=== PATIENT | male | born 1940 | race Caucasian/White ===

== ENCOUNTER → 2018-01-16 | Outpatient (CLI) | payer OTHER, MEDICARE ==
[~2018-01-16] MED LIST: NRV/10 PO; OPTIRAY 320 IV PRN
--- NOTE | 2018-01-16 11:30 | DIAGNOSTIC IMAGING REPORT ---
CHEST 2 VIEWS ROUTINE CLINICAL HISTORY: R63.4. ABNORMAL WEIGHT LOSS COMPARISON STUDY: 08/31/2016 FINDINGS: The cardiac and mediastinal contours are normal. There is no evidence of focal pulmonary consolidation. There is no evidence of failure. No pleural effusions are visualized.[ IMPRESSION: No active disease in the chest. Electronically signed by: Chinedu Hoyt M.D. 01/16/2018 11:29 AM Dictated Date/Time: 01/16/2018 11:28 AM
--- NOTE | 2018-01-16 11:33 | DIAGNOSTIC IMAGING REPORT ---
ABD/PELVIS IV CONTRAST ONLY CT DOSE: 290.74 mGy.cm HISTORY: Weight loss. Pain. ABNORMAL WT LOSS,BENIGN PROSTATIC HYPERPLASIA TECHNIQUE: Multiaxial CT images of the abdomen and pelvis were performed following the use of intravenous contrast. A dose lowering technique was utilized adhering to the principles of ALARA. COMPARISON STUDY: None. FINDINGS: Lung bases are generally clear. Minimal dependent basilar atelectasis. Liver enhances uniformly. 5 mm cyst anterior aspect left hepatic lobe. No evidence for gallbladder distention. The kidneys enhance uniformly. The adrenal glands are unremarkable. Spleen is uniform. Nonobstructive bowel pattern. Suggestion of slight thickening of several segmental regions of the small bowel as well as colon. This is most likely technical due to the absence of oral contrast . No significant abdominal or pelvic adenopathy. Bladder is midline. No free fluid within the pelvic cul-de-sac. No acute abnormality of the bony structures. IMPRESSION: No significant abnormality identified within the abdomen or pelvis. The above report was generated using voice recognition software. It may contain grammatical, syntax or spelling errors. Electronically signed by: Drew Chaves M.D. 01/16/2018 11:32 AM Dictated Date/Time: 01/16/2018 11:26 AM
== END | disposition home or self-care (01) ==
LOC: C.CTS 10:22
PROVIDERS: ATTEND Family Medicine
DX: R63.4 Abnormal weight loss (principal); N40.0 Benign prostatic hyperplasia without lower urinary tract symptoms

== ENCOUNTER 2024-02-06 17:25 | Inpatient (IN) ==
[2024-02-06] MEDS: OPTIRAY 320 100ml IV ONE (17:56)
[2024-02-06 17:58] LABS: iSTAT Creatinine 1.2 mg/dl (0.6-1.3); iSTAT Hemoglobin 16.3 g/dl (14.0-18.0); iSTAT Ionized Calcium 1.16 mmol/l (1.12-1.32); iSTAT Potassium 4.7 mmol/L (3.3-5.0)
[2024-02-06 18:05] LABS: Basophils # (auto) 0.05 K/uL (0.00-0.20); Basophils % (auto) 0.5 %; Eosinophils # (auto) 0.07 K/uL (0.00-0.50); Eosinophils % (auto) 0.7 %; Hemoglobin 16.2 g/dl (14.0-18.0); Immature Granulocytes # (auto) 0.04 K/uL (0.01-0.20); Immature Granulocytes % (auto) 0.4 %; Lymphocytes # (auto) 1.28 K/uL (1.20-3.40); Lymphocytes % (auto) 13.1 %; Mean Corpuscular Hemoglobin 33.8 pg (25.0-34.0); Mean Corpuscular Volume 93.9 fL (80.0-100.0); Mean Platelet Volume 11.1 fL (9.4-12.4); Monocytes # (auto) 0.57 K/uL (0.11-0.59); Monocytes % (auto) 5.9 %; Neutrophils # (auto) 7.73 K/uL (1.40-6.50); Neutrophils % (auto) 79.4 %; Platelet Count 176 K/uL (130-400); RDW Coefficient of Variation 13.4 % (11.5-14.5); RDW Standard Deviation 45.7 fL (36.4-46.3); Red Blood Count 4.79 M/uL (4.70-6.10); White Blood Count 9.74 K/ul (4.8-10.8)
[2024-02-06 18:16] LABS: Albumin Level 4.8 gm/dl (3.4-5.0); BUN Creatinine Ratio 27.8 (10-20); Bilirubin Direct 0.2 mg/dl (0-0.2); Bilirubin,Total 1.4 mg/dl (0.2-1.0); Calcium 10.1 mg/dl (8.6-10.3); Creatinine Clr Calc Pharmacy 48.7 ml/min; Est GFR (African American) 68.8 ml/min; Est GFR (Non-African American) 59.4 ml/min; Magnesium 2.1 mg/dl (1.7-2.4); Potassium 4.8 mmol/L (3.5-5.1); Total Protein 7.6 gm/dl (6.0-8.3)
[2024-02-06 18:29] LABS: INR 1.1 (0.9-1.1); Partial Thromboplastin Ratio 1.1; Partial Thromboplastin Time 30 Seconds (21-31); Prothrombin Time 11.6 Seconds (9.0-12.0)
--- NOTE | 2024-02-06 19:28 | CT Scan Report ---
CT abd pelvis IV con only CLINICAL HISTORY: abd pain TECHNIQUE: Helical axial images of the abdomen and pelvis were obtained and displayed. Automated dose lowering techniques and/or adjustment according to patient size were utilized for this exam. This e xam was performed with intravenous contrast. CT DOSE: 809.27 mGy.cm COMPARISON: Comparison is made to CT abdomen pelvis 01/16/2018 FINDINGS: Lower chest: Bibasilar atelectasis versus scarring is seen. Liver: Unremarkable. No focal lesions are seen. Gallbladder and biliary tree: No calcified gallstones. Normal caliber wall. No intra- or extrahepatic biliary ductal dilation. Pancreas: Unremarkable, no focal lesions. Spleen: Unremarkable. Adrenals: Unremarkable. Kidneys and ureters: Unremarkable. Bladder: Diffuse homogeneous wall thickening is seen. Reproductive organs: Prostatomegaly is seen. Bowel: Multiple loops of mildly dilated small bowel measure up to 31 mm. A distal transition point is seen in the mid pelvis. There is a gradual proximal transition point in the left lower quadrant. Lymph nodes Retroperitoneal: Unremarkable. Pelvic: Unremarkable. Mesenteric: Unremarkable. Peritoneum: Normal. Vessels: Atherosclerotic calcifications are seen. Abdominal wall: Bilateral fat-containing inguinal hernias are seen. Fat-containing umbilical hernia i s seen. Bones: Degenerative changes are seen. IMPRESSION: Findings are compatible with small bowel obstruction. No evidence of bowel strangulation. ACT 112: Negative or not required by law. Electronically signed by: Jabier Rodriguez M.D. 02/06/2024 7:26 PM
[2024-02-06] MEDS: KETOROLAC TROMETHAMINE 15 MG/ML VIAL IV STA (19:29)
[2024-02-06] MEDS: SODIUM CHLORIDE 0.9% 1,000 ML IV SCH (20:02)
--- NOTE | 2024-02-06 20:10 | History & Physical Report ---
Date of Service February 06, 2024 Assessment & Plan (1) Small bowel obstruction: Plan: 83yo male presenting with 1 day of abdominal pain as well as nausea. CT findings suggestive of small bowel obstruction with a distal transition point seen in the mid pelvis with gradual proximal transition point in the LLQ. No evidence of strangulation. Patient with prior hernia repair. Pain has improved following dose of Toradol. No nausea at present. Very minimal abdominal distention -Observation to medical -Maintain NPO status -LR at 80mL/hr x 2L -Will hold off on NGT at this point as patient is without nausea, distention and pain is improving -Zofran PRN nausea -Morphine as needed for pain - minimize use as able -General Surgery consultation appreciated -Check KUB in AM (2) Atrial fibrillation: Plan: Chronic. Rate controlled. Patient anticoagulated on Eliquis -Continue Eliquis 5mg PO BID -Continue Diltiazem 120mg po daily -Continue Metoprolol 25mg po BID (3) Hypertension: Plan: Blood pressure mildly elevated on arrival. Asymptomatic -Pain control as above with Morphine PRN -Continue Diltiazem and Metoprolol -Monitor (4) Hyperlipidemia: Plan: Chronic. Stable -Continue Atorvastatin Continue Combigan 1 drop OP BID History of Present Illness Chief Complaint: abdominal pain Primary Care Provider: Agustin Majano MD Cristian Skinner is a pleasant 83yo male with history of atrial fibrillation on Eliquis anticoagulation, HTN, HLP presenting with abdominal pain. Patient was awaken this morning at 05:30 with fairly severe mid-abdominal pain. His pain persisted for several hours in the morning then improved throughout the day. Around 15:00 he had return of severe pain - 10/10, non-radiating mid-abdominal pain. He had associated nausea with dry heaving. Last BM was several episodes of loose stools this AM at 05:30. He is not passing gas. Patient denies chest pain, cough, SOB, fever or chills. No history of prior SBO. He has had an inguinal hernia repair in the past. In the ER he is afebrile, hypertensive otherwise HD stable. Pain 10/10, improved after administration of IV Toradol. Now 5/10 ER Course: Toradol 15mg IV NSS at 80mL/hr Atorvastatin 10mg Metoprolol 25mg Apixaban ordered - not administered as patient refused Allergies Allergy/AdvReac Type Severity Reaction Status Date / Time tetanus toxoid, adsorbed Allergy Unknown HIVES Verified 01/23/24 08:26 Home Medications Medication Instructions Recorded Confirmed Type apixaban 5 mg tablet (Eliquis) 5 mg PO BID 01/31/19 01/15/24 History metoprolol succinate 25 mg 25 mg PO BID 01/31/19 01/15/24 History tablet,extended release 24 hr multivitamin 1 tab PO QAM 01/31/19 01/15/24 History lutein 20 mg capsule 20 mg PO QAM 02/14/19 01/15/24 History diltiazem HCl 120 mg 120 mg PO QAM 02/27/19 01/15/24 History capsule,extended release 24 hr, controlled atorvastatin 10 mg tablet 10 mg PO QPM 01/15/24 01/15/24 History cholecalciferol (vitamin D3) 25 25 mcg PO QAM 01/15/24 01/15/24 History mcg (1,000 unit) tablet (Vitamin D3) cranberry 400 mg capsule 400 mg PO QAM 01/15/24 01/15/24 History lactobacillus combination no.4 3 3,000 mmu cells PO QAM 01/15/24 01/15/24 History billion cell capsule (Probiotic) omega 0-vxy-eag-fish oil 60 mg-90 1 cap PO QAM 01/15/24 01/15/24 History mg-500 mg capsule (Fish Oil) Past Med/Surg History Medical History Right cataract History of cardioversion DX 01/2019; S/P CARDIOVERSION x 2 in 03/2019 within a week, 2nd one successful x 4 days. on eliquis, follows with Dr. Guallpa at [facility] Diverticular disease Hyperlipidemia Hypertension Atrial fibrillation DX 01/2019; S/P CARDIOVERSION x 2 in 03/2019 within a week, 2nd one successful x 4 days. on misael follos with Dr. Guallpa at [facility] Surgical History Hx of hand surgery (~08/2023) x 2, trigger finger Bilateral Status post wrist surgery rt History of shoulder surgery lt History of inguinal hernia repair rt History of carpal tunnel surgery of right wrist History of esophagogastroduodenoscopy (EGD) History of colonoscopy Family History Mother No problems noted. Father Congestive heart failure (CHF) Aortic valve disease, rheumatic Son , AGE 47 S/T VT Myocardial infarction Social History Smoking Status: Unknown if ever smoked Tobacco Type: Cigarettes Cigarettes Per Day: 1/2 to 1 PPD; Second Hand Exposure: No; Do You Dip or Chew Tobacco: No; Hx Alcohol Use: Yes Alcohol type: wine Hx Substance Use: No Preferred Language: Tamazight Communication Ability: Effective Retort Furnace Operator Required: No Beliefs That Will Affect Care: None Current Living Situation: Spouse Feels Safe at Home: Yes Assistive Devices: Hearing Aid - Bilateral Review of Systems Review of Systems: All systems reviewed & are unremarkable except as noted in HPI & below Physical Exam Physical Exam: General: patient resting comfortably, NAD, non-toxic in appearance, AA&O x 4 Skin: warm, dry, intact, no rashes or lesions HEENT: NC/AT, PERRL, EOMI, anicteric sclera, conjunctiva without injection, external ear normal to inspection and nontender, nares patent, moist mucus membranes, dentition intact, no oropharyngeal lesions, neck supple, trachea midline, no LAD, no thyromegaly, no JVD Heart: +S1/S2, regular, no m/r/g Lungs: equal air entry bilaterally, no rales/rhonchi/wheezes Abd: diminished bowel sounds, soft, mildly tender with deep palpation, no rebound/guarding, ND, no masses/organomegaly/ascites Ext: warm, 2+ pulses in UE/LE bilaterally, no clubbing/cyanosis or edema Neuro: nonfocal, patient AA&O x 4, speech intact, no facial droop, moving all extremities on command with equal strength 5/5 Results & Data Results & Data Vital Signs (Past 12 Hours) Vital Signs Temp Pulse Resp BP Pulse Ox O2 Del Method 02/06/24 19:30 68 19 125/89 95 02/06/24 18:58 75 19 144/86 H 96 02/06/24 18:50 75 20 95 02/06/24 18:40 68 16 98 02/06/24 18:39 75 02/06/24 18:30 72 19 141/92 H 96 02/06/24 18:02 74 14 161/108 H 02/06/24 17:51 80 20 98 Room Air 02/06/24 17:29 36.1 C L 89 19 154/114 H 96 Room Air Laboratory Results Laboratory Results WBC 9.74 K/ul (4.8-10.8) 02/06/24 17:44 RBC 4.79 M/uL (4.70-6.10) 02/06/24 17:44 Hgb 16.2 g/dl (14.0-18.0) 02/06/24 17:44 POC Hgb 16.3 g/dl (14.0-18.0) 02/06/24 17:46 Hct 45.0 % (42.0-52.0) 02/06/24 17:44 POC Hct 48 % (42-52) 02/06/24 17:46 MCV 93.9 fL (80.0-100.0) 02/06/24 17:44 MCH 33.8 pg (25.0-34.0) 02/06/24 17:44 MCHC 36.0 g/dL (32.0-36.0) 02/06/24 17:44 RDW Std Deviation 45.7 fL (36.4-46.3) 02/06/24 17:44 RDW Coeff of Darlene 13.4 % (11.5-14.5) 02/06/24 17:44 Plt Count 176 K/uL (130-400) 02/06/24 17:44 MPV 11.1 fL (9.4-12.4) 02/06/24 17:44 Immature Gran % (Auto) 0.4 % 02/06/24 17:44 Neut % (Auto) 79.4 % 02/06/24 17:44 Lymph % (Auto) 13.1 % 02/06/24 17:44 [place] % (Auto) 5.9 % 02/06/24 17:44 Eos % (Auto) 0.7 % 02/06/24 17:44 Baso % (Auto) 0.5 % 02/06/24 17:44 Neut # (Auto) 7.73 K/uL (1.40-6.50) H 02/06/24 17:44 Lymph # (Auto) 1.28 K/uL (1.20-3.40) 02/06/24 17:44 [place] # (Auto) 0.57 K/uL (0.11-0.59) 02/06/24 17:44 Eos # (Auto) 0.07 K/uL (0.00-0.50) 02/06/24 17:44 Baso # (Auto) 0.05 K/uL (0.00-0.20) 02/06/24 17:44 Immature Gran # (Auto) 0.04 K/uL (0.01-0.20) 02/06/24 17:44 PT 11.6 Seconds (9.0-12.0) 02/06/24 17:36 INR 1.1 (0.9-1.1) 02/06/24 17:36 APTT 30 Seconds (21-31) 02/06/24 17:36 PTT Ratio 1.1 02/06/24 17:36 POC Sodium 139 mmol/L (135-144) 02/06/24 17:46 Sodium 138 mmol/L (136-145) 02/06/24 17:35 POC Potassium 4.7 mmol/L (3.3-5.0) 02/06/24 17:46 Potassium 4.8 mmol/L (3.5-5.1) 02/06/24 17:35 POC Chloride 100 mmol/L (101-112) L 02/06/24 17:46 Chloride 101 mmol/L (98-107) 02/06/24 17:35 Carbon Dioxide 30 mmol/L (21-32) 02/06/24 17:35 POC Total CO2 28 mmol/L (24-31) 02/06/24 17:46 Anion Gap 7 (3-11) 02/06/24 17:35 POC Anion Gap 17.0 mmol/L (16-25) 02/06/24 17:46 POC BUN 32 mg/dl (7-18) H 02/06/24 17:46 BUN 32 mg/dl (6-23) H 02/06/24 17:35 Creatinine 1.15 mg/dl (0.6-1.4) 02/06/24 17:35 POC Creatinine 1.2 mg/dl (0.6-1.3) 02/06/24 17:46 Est Cr Clr Drug Dosing 48.7 ml/min 02/06/24 17:35 Est GFR ( Amer) 68.8 ml/min 02/06/24 17:35 Est GFR (Non-Af Amer) 59.4 ml/min 02/06/24 17:35 BUN/Creatinine Ratio 27.8 (10-20) H 02/06/24 17:35 Glucose 139 mg/dl (70-99(Fasting)) H 02/06/24 17:35 POC Glucose (other) 139 mg/dl (70-99) H 02/06/24 17:46 Calcium 10.1 mg/dl (8.6-10.3) 02/06/24 17:35 POC Ioniz Calcium Evelyn 1.16 mmol/l (1.12-1.32) 02/06/24 17:46 Magnesium 2.1 mg/dl (1.7-2.4) 02/06/24 17:35 Total Bilirubin 1.4 mg/dl (0.2-1.0) H 02/06/24 17:35 Direct Bilirubin 0.2 mg/dl (0-0.2) 02/06/24 17:35 AST 22 U/L (13-39) 02/06/24 17:35 ALT 25 U/L (7-52) 02/06/24 17:35 Alkaline Phosphatase 75 U/L (34-104) 02/06/24 17:35 Total Protein 7.6 gm/dl (6.0-8.3) 02/06/24 17:35 Albumin 4.8 gm/dl (3.4-5.0) 02/06/24 17:35 Lipase 21 U/L (11-82) 02/06/24 17:35 Impressions Abdomen/Pelvis CT 02/06/24 17:46 CT abd pelvis IV con only CLINICAL HISTORY: abd pain TECHNIQUE: Helical axial images of the abdomen and pelvis were obtained and displayed. Automated dose lowering techniques and/or adjustment according to patient size were utilized for this exam. This exam was performed with intravenous contrast. CT DOSE: 809.27 mGy.cm COMPARISON: Comparison is made to CT abdomen pelvis 01/16/2018 FINDINGS: Lower chest: Bibasilar atelectasis versus scarring is seen. Liver: Unremarkable. No focal lesions are seen. Gallbladder and biliary tree: No calcified gallstones. Normal caliber wall. No intra- or extrahepatic biliary ductal dilation. Pancreas: Unremarkable, no focal lesions. Spleen: Unremarkable. Adrenals: Unremarkable. Kidneys and ureters: Unremarkable. Bladder: Diffuse homogeneous wall thickening is seen. Reproductive organs: Prostatomegaly is seen. Bowel: Multiple loops of mildly dilated small bowel measure up to 31 mm. A distal transition point is seen in the mid pelvis. There is a gradual proximal transition point in the left lower quadrant. Lymph nodes Retroperitoneal: Unremarkable. Pelvic: Unremarkable. Mesenteric: Unremarkable. Peritoneum: Normal. Vessels: Atherosclerotic calcifications are seen. Abdominal wall: Bilateral fat-containing inguinal hernias are seen. Fat- containing umbilical hernia is seen. Bones: Degenerative changes are seen. IMPRESSION: Findings are compatible with small bowel obstruction. No evidence of bowel strangulation. ACT 112: Negative or not required by law. Electronically signed by: Jabier Rodriguez M.D. 02/06/2024 7:26 PM Code Status & VTE Plan VTE Prophylaxis Plan VTE Prophylaxis will be ordered: Yes PG Care Time/CCT Total # of Minutes Spent Total Time Spent with Patient: Total time spent is greater than 50% in coordination of care (as documented) at patient's floor/unit and/or counseling patient: Coding Level of Care Code 60652 INT INP/OBS CARE 2/55MIN Diagnoses Small bowel obstruction K56.609 Atrial fibrillation I48.91 Hypertension I10 Hyperlipidemia E78.5
[2024-02-06] MEDS: METOPROLOL SUCC 25MG EXT REL TAB PO STA (20:43)
[2024-02-06] MEDS: ATORVASTATIN 10 MG TAB PO ONE (20:43)
[2024-02-06] MEDS: APIXABAN 5 MG TABLET PO STA (20:44)
--- NOTE | 2024-02-06 21:47 | Emergency Department Note ---
History of Present Illness General Chief Complaint: Abdominal Pain Stated Complaint: NAUSEA, DRY HEAVING, UPPER ABD PAIN Time Seen by Provider: 02/06/24 17:35 History of Present Illness Provider Complaint: abdominal pain Onset (ago): 1 day(s) Pain Consistency: intermittent Location: diffuse Severity: moderate Maximum Pain Intensity: 4 Current Pain Intensity: 4 Quality: + stabbing and + sharp Relieved By: + nothing Exacerbated By: + nothing Context: no foreign travel, no possible food poisoning, no sick contacts, no recent antibiotic use, no recent surgery/procedure or no recent injury Associated Symptoms: + nausea and + vomiting; no diarrhea, no fever, no chills, no constipation, no dysuria, no hematemesis, no hematochezia, no melena, no hematuria, no syncope, no headache, no back pain, no chest pain and no breathing difficulty Home Medications Medication Instructions Recorded Confirmed Type apixaban 5 mg tablet (Eliquis) 5 mg PO BID 01/31/19 01/15/24 History metoprolol succinate 25 mg 25 mg PO BID 01/31/19 01/15/24 History tablet,extended release 24 hr multivitamin 1 tab PO QAM 01/31/19 01/15/24 History lutein 20 mg capsule 20 mg PO QAM 02/14/19 01/15/24 History diltiazem HCl 120 mg 120 mg PO QAM 02/27/19 01/15/24 History capsule,extended release 24 hr, controlled atorvastatin 10 mg tablet 10 mg PO QPM 01/15/24 01/15/24 History cholecalciferol (vitamin D3) 25 25 mcg PO QAM 01/15/24 01/15/24 History mcg (1,000 unit) tablet (Vitamin D3) cranberry 400 mg capsule 400 mg PO QAM 01/15/24 01/15/24 History lactobacillus combination no.4 3 3,000 mmu cells PO QAM 01/15/24 01/15/24 History billion cell capsule (Probiotic) omega 9-kdk-nyk-fish oil 60 mg-90 1 cap PO QAM 01/15/24 01/15/24 History mg-500 mg capsule (Fish Oil) Allergies Allergy/AdvReac Type Severity Reaction Status Date / Time tetanus toxoid, adsorbed Allergy Unknown HIVES Verified 01/23/24 08:26 Past Med/Surg History Medical History Right cataract History of cardioversion DX 01/2019; S/P CARDIOVERSION x 2 in 03/2019 within a week, 2nd one successful x 4 days. on , follows with Dr. Guallpa at [facility] Diverticular disease Hyperlipidemia Hypertension Atrial fibrillation DX 01/2019; S/P CARDIOVERSION x 2 in 03/2019 within a week, 2nd one successful x 4 days. on , follos with Dr. Guallpa at [facility] Surgical History Hx of hand surgery (~08/2023) x 2, trigger finger Bilateral Status post wrist surgery rt History of shoulder surgery lt History of inguinal hernia repair rt History of carpal tunnel surgery of right wrist History of esophagogastroduodenoscopy (EGD) History of colonoscopy Family History Mother No problems noted. Father Congestive heart failure (CHF) Aortic valve disease, rheumatic Son , AGE 47 S/T [place] Myocardial infarction Social History Smoking Status: Unknown if ever smoked Tobacco Type: Cigarettes Cigarettes Per Day: 1/2 to 1 PPD; Second Hand Exposure: No; Do You Dip or Chew Tobacco: No; Hx Alcohol Use: Yes Alcohol type: wine Hx Substance Use: No Preferred Language: Iraqi Communication Ability: Effective Clerical Supervisor Required: No Beliefs That Will Affect Care: None Current Living Situation: Spouse Feels Safe at Home: Yes Assistive Devices: Hearing Aid - Bilateral Physical Exam 2 Vital Signs: Vital Signs - 24 hr 02/06/24 17:29 02/06/24 17:51 02/06/24 18:02 Temperature 36.1 C L Temperature Source Temporal Artery Sc an Pulse Rate 89 80 74 Pulse Rate from Sp O2 Sensor Pulse Rhythm Regular Respiratory Rate 19 20 14 Blood Pressure 154/114 H 161/108 H Blood Pressure Alisia n 127 125 Pulse Oximetry 96 98 Oxygen Delivery Me thod Room Air Room Air Sepsis Recent Feve r Within 48 Hours No Sepsis New/Unexpla ined Change in Men jarvis Status N/A Sepsis Action Take n by Nursing No Action Required 02/06/24 18:30 02/06/24 18:39 02/06/24 18:40 Temperature Temperature Source Pulse Rate 72 75 68 Pulse Rate from Sp O2 Sensor 72 Pulse Rhythm Respiratory Rate 19 16 Blood Pressure 141/92 H Blood Pressure Alisia n 108 Pulse Oximetry 96 98 Oxygen Delivery Me thod Sepsis Recent Feve r Within 48 Hours Sepsis New/Unexpla ined Change in Men jarvis Status Sepsis Action Take n by Nursing 02/06/24 18:50 02/06/24 18:58 02/06/24 19:30 Temperature Temperature Source Pulse Rate 75 75 68 Pulse Rate from Sp O2 Sensor 73 Pulse Rhythm Respiratory Rate 20 19 19 Blood Pressure 144/86 H 125/89 Blood Pressure Alisia n 105 101 Pulse Oximetry 95 96 95 Oxygen Delivery Me thod Sepsis Recent Feve r Within 48 Hours Sepsis New/Unexpla ined Change in Men jarvis Status Sepsis Action Take n by Nursing 02/06/24 20:01 02/06/24 20:01 Temperature Temperature Source Pulse Rate 79 Pulse Rate from Sp O2 Sensor 77 Pulse Rhythm Respiratory Rate 26 H Blood Pressure 177/105 H Blood Pressure Alisia n 134 Pulse Oximetry 97 Oxygen Delivery Me thod Sepsis Recent Feve r Within 48 Hours Sepsis New/Unexpla ined Change in Men jarvis Status Sepsis Action Take n by Nursing Physical Exam: Physical Exam GENERAL: She is oriented to person, place, and time. She appears well-developed and well-nourished. She does not appear distressed. HENT: Exam performed. -Head: Normocephalic and atraumatic. -Right Ear: External ear normal. No mastoid erythema -Left Ear: External ear normal. No mastoid erythema -Mouth/Throat: The oropharynx is clear and moist. No trismus in the jaw. No dental abscesses or uvula swelling. No oropharyngeal exudate or tonsillar abscesses. EYES: Conjunctivae and EOM are normal.Right eye exhibits no discharge. Left eye exhibits no discharge. No scleral icterus. NECK: Normal range of motion. Neck supple. No JVD present. No tracheal deviation and normal range of motion present. CV: Normal rate, regular rhythm, normal heart sounds and intact distal pulses. There is no peripheral edema. Palpable radial pulses bue. PULM/CHEST: Effort normal and breath sounds normal. No respiratory distress. No stridor. She has no wheezes. She has no rales. -Chest Wall: She exhibits no tenderness. ABD: The abdomen is soft. She has no distension. No mass is present. There is diffuse tenderness. There is no rebound, no guarding. MUSC/SKEL: Normal range of motion. There is no peripheral edema, tenderness or deformity. NEURO: Motor and sensation grossly intact. SKIN: Skin is warm and dry. She is not diaphoretic. PSYCH: She has a normal mood and affect. Behavior is normal. Judgment and thought content normal. Course Course 1734: The patient was evaluated in room C7. A complete history and physical exam was performed Cardiac monitoring: An order was placed for continuous cardiac monitoring. The monitor shows a rate of 90 with sinus rhythm interpreted by me 1945: Vital signs stable. Labs within normal limits. Imaging shows small bowel obstruction. Discussed case with general surgery on-call Dr. Richardson who agrees that the patient be admitted to the medicine service and she will be on consult. Discussed case with Dr. Landin who will admit the patient to her service. Administered Medications Sodium Chloride (Nss) 1,000 mls @ 80 mls/hr IV .[id number] RENNY Stop: 03/07/24 19:59 Last Admin: 02/06/24 20:02 Dose: 80 mls/hr Documented By: CPB Discontinued Medications Apixaban (Apixaban 5 Mg Tablet) 5 mg PO NOW STA Stop: 02/06/24 20:10 Last Admin: 02/06/24 20:44 Dose: Not Given Documented By: CPB Atorvastatin Calcium (Atorvastatin 10 Mg Tab) 10 mg PO NOW ONE Stop: 02/06/24 20:10 Last Admin: 02/06/24 20:43 Dose: 10 mg Documented By: CPB Ioversol (Optiray 320 100ml) 89 ml IV ONCE ONE Stop: 02/06/24 17:56 Last Admin: 02/06/24 17:56 Dose: 89 ml Documented By: JMP Ketorolac Tromethamine (Ketorolac Tromethamine 15 Mg/Ml Vial) 15 mg IV NOW STA Stop: 02/06/24 19:06 Last Admin: 02/06/24 19:29 Dose: 15 mg Documented By: CPB Metoprolol Succinate (Metoprolol Succ 25mg Ext Rel Tab) 25 mg PO NOW STA Stop: 02/06/24 20:10 Last Admin: 02/06/24 20:43 Dose: 25 mg Documented By: CPB Medical Decision Making Laboratory Data Attestation: I reviewed the patient's lab results. 02/06/24 17:44 02/06/24 17:35 Lab Results 02/06/24 02/06/24 02/06/24 Range/Units 17:35 17:36 17:44 WBC 9.74 (4.8-10.8) K/ul RBC 4.79 (4.70-6.10) M/uL Hgb 16.2 (14.0-18.0) g/dl POC Hgb (14.0-18.0) g/dl Hct 45.0 (42.0-52.0) % POC Hct (42-52) % MCV 93.9 (80.0-100.0) fL MCH 33.8 (25.0-34.0) pg MCHC 36.0 (32.0-36.0) g/dL RDW Std Deviation 45.7 (36.4-46.3) fL RDW Coeff of Darlene 13.4 (11.5-14.5) % Plt Count 176 (130-400) K/uL MPV 11.1 (9.4-12.4) fL Immature Gran % (Auto) 0.4 % Neut % (Auto) 79.4 % Lymph % (Auto) 13.1 % [place] % (Auto) 5.9 % Eos % (Auto) 0.7 % Baso % (Auto) 0.5 % Neut # (Auto) 7.73 H (1.40-6.50) K/uL Lymph # (Auto) 1.28 (1.20-3.40) K/uL [place] # (Auto) 0.57 (0.11-0.59) K/uL Eos # (Auto) 0.07 (0.00-0.50) K/uL Baso # (Auto) 0.05 (0.00-0.20) K/uL Immature Gran # (Auto) 0.04 (0.01-0.20) K/uL PT 11.6 (9.0-12.0) Seconds INR 1.1 (0.9-1.1) APTT 30 (21-31) Seconds PTT Ratio 1.1 POC Sodium (135-144) mmol/L Sodium 138 (136-145) mmol/L POC Potassium (3.3-5.0) mmol/L Potassium 4.8 (3.5-5.1) mmol/L POC Chloride (101-112) mmol/L Chloride 101 (98-107) mmol/L Carbon Dioxide 30 (21-32) mmol/L POC Total CO2 (24-31) mmol/L Anion Gap 7 (3-11) POC Anion Gap (16-25) mmol/L POC BUN (7-18) mg/dl BUN 32 H (6-23) mg/dl Creatinine 1.15 (0.6-1.4) mg/dl POC Creatinine (0.6-1.3) mg/dl Est Cr Clr Drug Dosing 48.7 ml/min Est GFR ( Amer) 68.8 ml/min Est GFR (Non-Af Amer) 59.4 ml/min BUN/Creatinine Ratio 27.8 H (10-20) Glucose 139 H (70-99(Fasting)) mg/dl POC Glucose (other) (70-99) mg/dl Calcium 10.1 (8.6-10.3) mg/dl POC Ioniz Calcium Evelyn (1.12-1.32) mmol/l Magnesium 2.1 (1.7-2.4) mg/dl Total Bilirubin 1.4 H (0.2-1.0) mg/dl Direct Bilirubin 0.2 (0-0.2) mg/dl AST 22 (13-39) U/L ALT 25 (7-52) U/L Alkaline Phosphatase 75 (34-104) U/L Total Protein 7.6 (6.0-8.3) gm/dl Albumin 4.8 (3.4-5.0) gm/dl Lipase 21 (11-82) U/L 02/05/ Range/Units 17:46 WBC (4.8-10.8) K/ul RBC (4.70-6.10) M/uL Hgb (14.0-18.0) g/dl POC Hgb 16.3 (14.0-18.0) g/dl Hct (42.0-52.0) % POC Hct 48 (42-52) % MCV (80.0-100.0) fL MCH (25.0-34.0) pg MCHC (32.0-36.0) g/dL RDW Std Deviation (36.4-46.3) fL RDW Coeff of Darlene (11.5-14.5) % Plt Count (130-400) K/uL MPV (9.4-12.4) fL Immature Gran % (Auto) % Neut % (Auto) % Lymph % (Auto) % [place] % (Auto) % Eos % (Auto) % Baso % (Auto) % Neut # (Auto) (1.40-6.50) K/uL Lymph # (Auto) (1.20-3.40) K/uL [place] # (Auto) (0.11-0.59) K/uL Eos # (Auto) (0.00-0.50) K/uL Baso # (Auto) (0.00-0.20) K/uL Immature Gran # (Auto) (0.01-0.20) K/uL PT (9.0-12.0) Seconds INR (0.9-1.1) APTT (21-31) Seconds PTT Ratio POC Sodium 139 (135-144) mmol/L Sodium (136-145) mmol/L POC Potassium 4.7 (3.3-5.0) mmol/L Potassium (3.5-5.1) mmol/L POC Chloride 100 L (101-112) mmol/L Chloride (98-107) mmol/L Carbon Dioxide (21-32) mmol/L POC Total CO2 28 (24-31) mmol/L Anion Gap (3-11) POC Anion Gap 17.0 (16-25) mmol/L POC BUN 32 H (7-18) mg/dl BUN (6-23) mg/dl Creatinine (0.6-1.4) mg/dl POC Creatinine 1.2 (0.6-1.3) mg/dl Est Cr Clr Drug Dosing ml/min Est GFR ( Amer) ml/min Est GFR (Non-Af Amer) ml/min BUN/Creatinine Ratio (10-20) Glucose (70-99(Fasting)) mg/dl POC Glucose (other) 139 H (70-99) mg/dl Calcium (8.6-10.3) mg/dl POC Ioniz Calcium Evelyn 1.16 (1.12-1.32) mmol/l Magnesium (1.7-2.4) mg/dl Total Bilirubin (0.2-1.0) mg/dl Direct Bilirubin (0-0.2) mg/dl AST (13-39) U/L ALT (7-52) U/L Alkaline Phosphatase (34-104) U/L Total Protein (6.0-8.3) gm/dl Albumin (3.4-5.0) gm/dl Lipase (11-82) U/L Imaging Data Radiologist's Impression: Abdomen/Pelvis CT 02/06/24 17:46 CT abd pelvis IV con only CLINICAL HISTORY: abd pain TECHNIQUE: Helical axial images of the abdomen and pelvis were obtained and displayed. Automated dose lowering techniques and/or adjustment according to patient size were utilized for this exam. This exam was performed with intravenous contrast. CT DOSE: 809.27 mGy.cm COMPARISON: Comparison is made to CT abdomen pelvis 01/16/2018 FINDINGS: Lower chest: Bibasilar atelectasis versus scarring is seen. Liver: Unremarkable. No focal lesions are seen. Gallbladder and biliary tree: No calcified gallstones. Normal caliber wall. No intra- or extrahepatic biliary ductal dilation. Pancreas: Unremarkable, no focal lesions. Spleen: Unremarkable. Adrenals: Unremarkable. Kidneys and ureters: Unremarkable. Bladder: Diffuse homogeneous wall thickening is seen. Reproductive organs: Prostatomegaly is seen. Bowel: Multiple loops of mildly dilated small bowel measure up to 31 mm. A distal transition point is seen in the mid pelvis. There is a gradual proximal transition point in the left lower quadrant. Lymph nodes Retroperitoneal: Unremarkable. Pelvic: Unremarkable. Mesenteric: Unremarkable. Peritoneum: Normal. Vessels: Atherosclerotic calcifications are seen. Abdominal wall: Bilateral fat-containing inguinal hernias are seen. Fat- containing umbilical hernia is seen. Bones: Degenerative changes are seen. IMPRESSION: Findings are compatible with small bowel obstruction. No evidence of bowel strangulation. ACT 112: Negative or not required by law. Electronically signed by: Jabier Rodriguez M.D. 02/06/2024 7:26 PM [facility] Narrative 1735: The patient was evaluated in room C7. A complete history and physical exam was performed Cardiac monitoring: An order was placed for continuous cardiac monitoring. The monitor shows a rate of 90 with sinus rhythm interpreted by me 1945: Vital signs stable. Labs within normal limits. Imaging shows small bowel obstruction. Discussed case with general surgery on-call Dr. Richardson who agrees that the patient be admitted to the medicine service and she will be on consult. Discussed case with Dr. Landin who will admit the patient to her service. Impression & Plan Small bowel obstruction Discharge Plan Visit Data Chief Complaint: Abdominal Pain Stated Complaint: NAUSEA, DRY HEAVING, UPPER ABD PAIN ED Provider: Bo Reveles Discharge Problem: Small bowel obstruction Patient Disposition: Admitted As Inpatient Discharge Instructions Interventions: ED Discharge Assessment Last Done: 02/06/24 21:15
[2024-02-06] MEDS: LACTATED RINGER'S 1,000 ML IV SCH (22:16)
[2024-02-06] MEDS: MoRPHine SULFATE 2 MG/ML CARP IV PRN (22:53)
[2024-02-07] MEDS: KETOROLAC TROMETHAMINE 15 MG/ML VIAL IV ONE (01:20)
[2024-02-07] MEDS: MoRPHine SULFATE 2 MG/ML CARP IV PRN (03:33)
[2024-02-07] MEDS: ONDANSETRON INJ 2 MG/ML 2 ML VIAL IV PRN (03:54)
[2024-02-07 07:16] LABS: Hematocrit (blood only) 43.6 % (42.0-52.0); Hemoglobin 15.6 g/dl (14.0-18.0); Mean Corpuscular Hemoglobin 33.9 pg (25.0-34.0); Mean Corpuscular Hgb Conc 35.8 g/dL (32.0-36.0); Mean Corpuscular Volume 94.8 fL (80.0-100.0); Mean Platelet Volume 10.9 fL (9.4-12.4); Platelet Count 165 K/uL (130-400); RDW Coefficient of Variation 13.6 % (11.5-14.5); RDW Standard Deviation 46.2 fL (36.4-46.3); White Blood Count 9.61 K/ul (4.8-10.8)
[2024-02-07 07:48] LABS: Albumin Level 4.1 gm/dl (3.4-5.0); BUN Creatinine Ratio 28.4 (10-20); Bilirubin Direct 0.3 mg/dl (0-0.2); Bilirubin,Total 1.3 mg/dl (0.2-1.0); Calcium 9.1 mg/dl (8.6-10.3); Creatinine Clr Calc Pharmacy 48.3 ml/min; Est GFR (African American) 68.1 ml/min; Est GFR (Non-African American) 58.7 ml/min; Potassium 4.2 mmol/L (3.5-5.1); Total Protein 6.7 gm/dl (6.0-8.3)
[2024-02-07 08:06] LABS: Appearance Urine Clear (Clear); Bacteria Urine Automated Negative (Negative); Blood Urine Negative (Negative); Color Urine Dark Yellow; Epithelial Cell Urine Auto 0-5 /lpf (0-5); Glucose Urine UA Negative (Negative); Ketones Urine 1+ (Negative); Leukocyte Esterase Urine Negative (Negative); Nitrite Urine Negative (Negative); Protein Urine 1+ (Negative); RBC Urine Automated 0-4 /hpf (0-4); Specific Gravity Urine > 1.045 (1.000-1.030); Urobilinogen Urine Negative (Negative)
[2024-02-07 08:08] LABS: Bilirubin Urine 1+ (Negative)
--- NOTE | 2024-02-07 09:59 | XRay Report ---
KUB HISTORY: Small bowel obstruction. Follow-up. COMPARISON: Abdomen and pelvis CT 02/06/2024. FINDINGS: Multiple dilated loops of small bowel again seen throughout the abdomen consistent with a s mall bowel obstruction. These measure up to 4.2 cm in diameter. This has slightly progressed in the i nterval. There is contrast within the urinary bladder from the prior CT examination. No renal calcul i. No ureteral calculi. Calcifications in the deep pelvis likely represent phleboliths. The heart is mildly enlarged. The lung bases are clear. No pneumoperitoneum or pneumatosis. IMPRESSION: Slight progression of the small bowel obstruction pattern. ACT 112: Negative or not required by law. Electronically signed by: Josiah Mitchell M.D. 02/07/2024 9:58 AM
--- NOTE | 2024-02-07 10:42 | Surgery Consultation ---
Date of Consultation February 07, 2024 Assessment & Plan (1) Small bowel obstruction: -IVF, NPO -would place NG if vomits -ambulate History of Present Illness Attending Physician: Aggie Joya MD History of Present Illness This is a 83YO male admitted for a possible SBO who presented with abdominal pain and nausea. He had a thin watery BM prior to the pain. No GI illnesses recently. A CT showed possible SBO with a distal transition point seen. in the mid pelvis with gradual proximal transition point in the LLQ. No evidence of strangulation. Patient with prior hernia repair. His pain is better this AM. No flatus yet. Some nausea but no vomiting. Allergies Allergy/AdvReac Type Severity Reaction Status Date / Time tetanus toxoid, adsorbed Allergy Unknown HIVES Verified 01/23/24 08:26 Home Medications Medication Instructions Recorded Confirmed Type apixaban 5 mg tablet (Eliquis) 5 mg PO BID 01/31/19 01/15/24 History metoprolol succinate 25 mg 25 mg PO BID 01/31/19 01/15/24 History tablet,extended release 24 hr multivitamin 1 tab PO QAM 01/31/19 01/15/24 History lutein 20 mg capsule 20 mg PO QAM 02/14/19 01/15/24 History diltiazem HCl 120 mg 120 mg PO QAM 02/27/19 01/15/24 History capsule,extended release 24 hr, controlled atorvastatin 10 mg tablet 10 mg PO QPM 01/15/24 01/15/24 History cholecalciferol (vitamin D3) 25 25 mcg PO QAM 01/15/24 01/15/24 History mcg (1,000 unit) tablet (Vitamin D3) cranberry 400 mg capsule 400 mg PO QAM 01/15/24 01/15/24 History lactobacillus combination no.4 3 3,000 mmu cells PO QAM 01/15/24 01/15/24 History billion cell capsule (Probiotic) omega 1-kvm-bzd-fish oil 60 mg-90 1 cap PO QAM 01/15/24 01/15/24 History mg-500 mg capsule (Fish Oil) Patient History Medical History Right cataract History of cardioversion DX 01/2019; S/P CARDIOVERSION x 2 in 03/2019 within a week, 2nd one successful x 4 days. on eliquis, follows with Dr. Guallpa at [facility] Diverticular disease Hyperlipidemia Hypertension Atrial fibrillation DX 01/2019; S/P CARDIOVERSION x 2 in 03/2019 within a week, 2nd one successful x 4 days. on bharati, follos with Dr. Guallpa at [facility] Surgical History Hx of hand surgery (~08/2023) x 2, trigger finger Bilateral Status post wrist surgery rt History of shoulder surgery lt History of inguinal hernia repair rt History of carpal tunnel surgery of right wrist History of esophagogastroduodenoscopy (EGD) History of colonoscopy Family History Mother No problems noted. 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 Beliefs That Will Affect Care: None Current Living Situation: Spouse Other Information That Helps Us Care for You: No Feels Safe at Home: Yes Safety Concerns: Feels Safe At This Time Assistive Devices: Glasses Review of Systems Constitutional: no fever and no chills Eyes: no problem reported Ear, Nose, Mouth, Throat: no problem reported Respiratory: no cough and no dyspnea Cardiovascular: no chest pain Gastrointestinal: + abdominal pain, + nausea and + change in bowel habits; no vomiting Genitourinary: no dysuria Musculoskeletal: no back pain Integumentary: no problem reported Neurologic: no localized weakness and no generalized weakness Psychiatric: no behavioral changes Endocrine: no fatigue Hematologic / Lymphatic: no easy bleeding and no easy bruising Physical Exam Constitutional: WD/WN, vitals as above Eyes: PERRL, conjunctivae normal, anicteric sclerae ENMT: external ear and nose normal, oropharynx normal Neck: trachea midline Respiratory: normal respiratory effort, lungs clear to auscultation Cardiovascular: RRR, no murmur, no edema Gastrointestinal (Abdomen): Inspection/Auscultation: abdomen normal to inspection, + abdomen distended (minimal) and normal bowel sounds Percussion/Palpation: abdomen soft; abdomen nontender, no guarding and abdomen not rigid Musculoskeletal: Head/Neck/Chest: normocephalic and head atraumatic Skin: no rashes, warm and dry Psychiatric: Orientation: alert and oriented x 3 Results & Data Vital Signs (Past 12 Hours) Vital Signs Temp Pulse Resp BP Pulse Ox O2 Del Method 02/07/24 07:14 36.6 C 93 H 16 171/81 H 94 Room Air Diagnostic Findings CT abd pelvis IV con only CLINICAL HISTORY: abd pain TECHNIQUE: Helical axial images of the abdomen and pelvis were obtained and displayed. Automated dose lowering techniques and/or adjustment according to patient size were utilized for this exam. This exam was performed with intravenous contrast. CT DOSE: 809.27 mGy.cm COMPARISON: Comparison is made to CT abdomen pelvis 01/16/2018 FINDINGS: Lower chest: Bibasilar atelectasis versus scarring is seen. Liver: Unremarkable. No focal lesions are seen. Gallbladder and biliary tree: No calcified gallstones. Normal caliber wall. No intra- or extrahepatic biliary ductal dilation. Pancreas: Unremarkable, no focal lesions. Spleen: Unremarkable. Adrenals: Unremarkable. Kidneys and ureters: Unremarkable. Bladder: Diffuse homogeneous wall thickening is seen. Reproductive organs: Prostatomegaly is seen. Bowel: Multiple loops of mildly dilated small bowel measure up to 31 mm. A distal transition point is seen in the mid pelvis. There is a gradual proximal transition point in the left lower quadrant. Lymph nodes Retroperitoneal: Unremarkable. Pelvic: Unremarkable. Mesenteric: Unremarkable. Peritoneum: Normal. Vessels: Atherosclerotic calcifications are seen. Abdominal wall: Bilateral fat-containing inguinal hernias are seen. Fat- containing umbilical hernia is seen. Bones: Degenerative changes are seen. IMPRESSION: Findings are compatible with small bowel obstruction. No evidence of bowel strangulation.
[2024-02-07] MEDS ORDERED: hydrALAZINE HCL 20 MG/ML VIAL IV PRN (11:19)
[2024-02-07] MEDS: APIXABAN 5 MG TABLET PO SCH (12:03)
[2024-02-07] MEDS: dilTIAZem HCL 120 MG CAPCR PO SCH (12:03)
[2024-02-07] MEDS: METOPROLOL SUCC 25MG EXT REL TAB PO SCH (12:03)
--- NOTE | 2024-02-07 13:32 | Hospitalist Progress Note ---
Date of Service February 07, 2024 Assessment & Plan (1) Small bowel obstruction: Plan: 83yo male presenting with 1 day of abdominal pain as well as nausea. CT findings suggestive of small bowel obstruction with a distal transition point seen in the mid pelvis with gradual proximal transition point in the LLQ. No evidence of strangulation. Patient with prior hernia repair. Pain and nausea improved, no NGT placed. Not passing flatus yet KUB today still with residual SBO Appreciate Surgery consult Place NGT if has any nausea or vomiting Continue NPO status and LR at 80mL/hr Zofran PRN nausea, Morphine as needed for pain - minimize use as able recommend SBFT after SBO resolves to assess for mass (2) Atrial fibrillation: Plan: Chronic. Rate controlled. Patient anticoagulated on Eliquis Holding home Eliquis 5mg PO BID,Diltiazem 120mg po daily, and Metoprolol 25mg po BID Consider bridging with Lovenox if no imminent surgery if rates become elevated, would have to transfer to med/tele or tele to give scheduled IV lopressor (3) Hypertension: Plan: Blood pressure somewhat elevated as not getting usual meds. Asymptomatic -Pain control as above with Morphine PRN -Continue Diltiazem and Metoprolol once taking po -Monitor (4) Hyperlipidemia: Plan: Chronic. Stable -holding Atorvastatin Continue Combigan 1 drop OP BID and prednisilone 1 drop OTB for recent cataract surgery Plan DVT proph-SCDs, ambulation Dispo-continue stay Admission and Anticipated Discharge Date Admission Date: February 06, 2024 Subjective Pt reports ongoing discomfort in abdomen but improved from previous, took morphine this AM. Denies nausea but did have dry heaves early this AM. No NGT in place. Denies CP, SOB. No passing flatus yet Physical Exam Constitutional: WD/WN, vitals as above Neck: trachea midline, no thyromegaly Respiratory: normal respiratory effort, lungs clear to auscultation Cardiovascular: Rate/Rhythm: regular rate and + irregularly irregular Heart Sounds: no murmur Extremities: no edema Chest (Breasts): Chest: normal inspection of chest Gastrointestinal (Abdomen): Inspection/Auscultation: abdomen normal to inspection, + abdomen distended (mild) and + hypoactive bowel sounds Percussion/Palpation: + abdomen tender (in LLQ and lower mid abdomen, no guarding) and abdomen soft Musculoskeletal: Extremities: extremities normal to inspection; no cyanosis and no clubbing Skin: no rashes, warm and dry Neurologic: moves all extremities and awake; no focal motor deficits Psychiatric: A+Ox3, euthymic affect Lymphatic: no lymphedema Results & Data Results & Data Vital Signs (Past 12 Hours) Vital Signs Temp Pulse Resp BP Pulse Ox O2 Del Method 02/07/24 07:14 36.6 C 93 H 16 171/81 H 94 Room Air Laboratory Results CBC, BMP, magnesium reviewed Diagnostic Findings KUB reviewed PG Care Time/CCT Total # of Minutes Spent Total Time Spent with Patient: Total time spent is greater than 50% in coordination of care (as documented) at patient's floor/unit and/or counseling patient: Coding Level of Care Code 52590 SUB INP/OBS CARE 2/35MIN Diagnoses Small bowel obstruction K56.609 Atrial fibrillation I48.91 Hypertension I10 Hyperlipidemia E78.5
[2024-02-07] MEDS: prednisoLONE acetate 1% OP SUSP 5 ML BTL OPR SCH (15:41)
[2024-02-07] MEDS: BRIMONIDINE TARTRATE/TIMOLOL OPB SCH (20:36)
[2024-02-07] MEDS ORDERED: BRIMONIDINE TARTRATE 0.2% 5ML OP SCH (21:00)
[2024-02-07] MEDS ORDERED: TIMOLOL MALEATE 0.5% OP SOLN 5 ML BTL OP SCH (21:00)
[2024-02-07] MEDS ORDERED: ATORVASTATIN 10 MG TAB PO SCH (21:00)
[2024-02-08 06:17] LABS: Basophils # (auto) 0.03 K/uL (0.00-0.20); Basophils % (auto) 0.5 %; Eosinophils # (auto) 0.05 K/uL (0.00-0.50); Eosinophils % (auto) 0.8 %; Hematocrit (blood only) 42.7 % (42.0-52.0); Hemoglobin 15.3 g/dl (14.0-18.0); Immature Granulocytes # (auto) 0.01 K/uL (0.01-0.20); Immature Granulocytes % (auto) 0.2 %; Lymphocytes # (auto) 0.87 K/uL (1.20-3.40); Lymphocytes % (auto) 14.1 %; Mean Corpuscular Hgb Conc 35.8 g/dL (32.0-36.0); Mean Corpuscular Volume 94.9 fL (80.0-100.0); Monocytes # (auto) 0.81 K/uL (0.11-0.59); Monocytes % (auto) 13.1 %; Neutrophils # (auto) 4.42 K/uL (1.40-6.50); Neutrophils % (auto) 71.3 %; Platelet Count 154 K/uL (130-400); RDW Coefficient of Variation 13.6 % (11.5-14.5); RDW Standard Deviation 45.9 fL (36.4-46.3); White Blood Count 6.19 K/ul (4.8-10.8)
[2024-02-08 06:43] LABS: BUN Creatinine Ratio 24.4 (10-20); Calcium 9.1 mg/dl (8.6-10.3); Creatinine Clr Calc Pharmacy 47.1 ml/min; Est GFR (Non-African American) 56.9 ml/min; Magnesium 1.8 mg/dl (1.7-2.4); Phosphorus 3.7 mg/dl (2.5-4.9); Potassium 4.4 mmol/L (3.5-5.1)
[2024-02-08] MEDS: ACETAMINOPHEN 1,000 MG/100 ML VIAL IV PRN (11:03)
[2024-02-08] MEDS: METOPROLOL TARTRATE 1 MG/ML VIAL IV SCH (12:16)
--- NOTE | 2024-02-08 12:41 | Surgery Progress Note ---
Date of Service February 08, 2024 Assessment & Plan (1) Small bowel obstruction: Plan: -IVF, NPO -would place NG if vomits -ambulate hallway to increase GI motility - [facility] surgery covering this weekend Discussed with Dr. salazar who agrees with above Admission and Anticipated Discharge Date Admission Date: February 06, 2024 Subjective abdominal pain stable, generalized nausea again this morning, no vomiting no flatus or bowel movement yet but "feels things moving around" has not ambulated hallway Physical Exam Constitutional: WD/WN, vitals as above cooperative and comfortable; no acute distress and not ill appearing Respiratory: normal respiratory effort; no respiratory distress Gastrointestinal (Abdomen): Inspection/Auscultation: + abdomen distended (mildly) Percussion/Palpation: + abdomen tender (generalized, RLQ) and abdomen soft; no guarding, abdomen not rigid and abdomen not firm Skin: no rashes, warm and dry Psychiatric: A+Ox3, euthymic affect Results & Data Vital Signs (Past 12 Hours) Vital Signs Temp Pulse Pulse Resp BP BP Pulse Ox 02/08/24 12:16 90 144/78 H 02/08/24 12:10 63 15 124/65 97 02/08/24 11:39 36.8 C 121 H 20 171/104 H 95 02/08/24 07:43 36.6 C 89 18 168/96 H 94 O2 Del Method 02/08/24 12:16 02/08/24 12:10 Room Air 02/08/24 11:39 Room Air 02/08/24 07:43 Room Air Laboratory Results 02/08/24 Range/Units 05:26 WBC 6.19 (4.8-10.8) K/ul RBC 4.50 L (4.70-6.10) M/uL Hgb 15.3 (14.0-18.0) g/dl Hct 42.7 (42.0-52.0) % MCV 94.9 (80.0-100.0) fL MCH 34.0 (25.0-34.0) pg MCHC 35.8 (32.0-36.0) g/dL RDW Std Deviation 45.9 (36.4-46.3) fL RDW Coeff of Darlene 13.6 (11.5-14.5) % Plt Count 154 (130-400) K/uL MPV 11.0 (9.4-12.4) fL Immature Gran % (Auto) 0.2 % Neut % (Auto) 71.3 % Lymph % (Auto) 14.1 % [place] % (Auto) 13.1 % Eos % (Auto) 0.8 % Baso % (Auto) 0.5 % Neut # (Auto) 4.42 (1.40-6.50) K/uL Lymph # (Auto) 0.87 L (1.20-3.40) K/uL [place] # (Auto) 0.81 H (0.11-0.59) K/uL Eos # (Auto) 0.05 (0.00-0.50) K/uL Baso # (Auto) 0.03 (0.00-0.20) K/uL Immature Gran # (Auto) 0.01 (0.01-0.20) K/uL Sodium 139 (136-145) mmol/L Potassium 4.4 (3.5-5.1) mmol/L Chloride 102 (98-107) mmol/L Carbon Dioxide 28 (21-32) mmol/L Anion Gap 9 (3-11) BUN 29 H (6-23) mg/dl Creatinine 1.19 (0.6-1.4) mg/dl Est Cr Clr Drug Dosing 47.1 ml/min Est GFR ( Amer) 66.0 ml/min Est GFR (Non-Af Amer) 56.9 ml/min BUN/Creatinine Ratio 24.4 H (10-20) Glucose 110 H (70-99(Fasting)) mg/dl Calcium 9.1 (8.6-10.3) mg/dl Phosphorus 3.7 (2.5-4.9) mg/dl Magnesium 1.8 (1.7-2.4) mg/dl
--- NOTE | 2024-02-08 15:04 | Hospitalist Progress Note ---
Date of Service February 08, 2024 Assessment & Plan (1) Small bowel obstruction: Plan: 83yo male presenting with 1 day of abdominal pain as well as nausea. CT findings suggestive of small bowel obstruction with a distal transition point seen in the mid pelvis with gradual proximal transition point in the LLQ. No evidence of strangulation. Patient with prior hernia repair. Pain and nausea improved, no NGT placed. Not passing flatus yet Appreciate Surgery consult Place NGT if has any nausea or vomiting Continue NPO status and LR at 80mL/hr Zofran PRN nausea, Morphine as needed for pain - minimize use as able recommend SBFT after SBO resolves to assess for mass Encouraged ambulation (2) Atrial fibrillation: Plan: Chronic. Rate controlled but creeping up. Patient anticoagulated on Eliquis Holding home Eliquis 5mg PO BID,Diltiazem 120mg po daily, and Metoprolol 25mg po BID Consider bridging with Lovenox if no imminent surgery Transferred to med/telemetry for scheduled IV Lopressor since heart rate creeping up without p.o. diltiazem and metoprolol (3) Hypertension: Plan: Blood pressure somewhat elevated as not getting usual meds. Asymptomatic -Pain control as above with Morphine PRN -Continue Diltiazem and Metoprolol once taking po -Monitor (4) Hyperlipidemia: Plan: Chronic. Stable -holding Atorvastatin Continue Combigan 1 drop OP BID and prednisilone 1 drop OTB for recent cataract surgery Plan DVT proph-SCDs, ambulation Dispo-continue stay Admission and Anticipated Discharge Date Admission Date: February 08, 2024 Subjective Patient has not had a bowel movement. He is not passing flatus yet. He has been walking down the hallway. No vomiting. Review of Systems Review of Systems: All systems reviewed & are unremarkable except as noted in Subjective Physical Exam Physical Exam: General: Awake, conversant Heart: S1, S2/irregular rhythm, no murmur rubs or gallops Lungs: Clear to auscultation bilaterally. Normal effort Abdomen: Soft/nondistended. Mild tenderness to palpation diffusely. Positive bowel sounds. No hepatosplenomegaly Extremities: No clubbing/cyanosis. No edema Behavior: Appropriate, cooperative Results & Data Results & Data Vital Signs (Past 12 Hours) Vital Signs Temp Pulse Pulse Resp BP BP Pulse Ox 02/08/24 12:47 93 H 138/85 02/08/24 12:16 90 144/78 H 02/08/24 12:10 63 15 124/65 97 02/08/24 11:39 36.8 C 121 H 20 171/104 H 95 02/08/24 07:43 36.6 C 89 18 168/96 H 94 O2 Del Method 02/08/24 12:47 02/08/24 12:16 02/08/24 12:10 Room Air 02/08/24 11:39 Room Air 02/08/24 07:43 Room Air Laboratory Results Abnormal lab results 02/08/24 Range/Units 05:26 RBC 4.50 L (4.70-6.10) M/uL Lymph # (Auto) 0.87 L (1.20-3.40) K/uL [place] # (Auto) 0.81 H (0.11-0.59) K/uL BUN 29 H (6-23) mg/dl BUN/Creatinine Ratio 24.4 H (10-20) Glucose 110 H (70-99(Fasting)) mg/dl PG Care Time/CCT Total # of Minutes Spent Total Time Spent with Patient: Total time spent is greater than 50% in coordination of care (as documented) at patient's floor/unit and/or counseling patient: Coding Level of Care Code 96317 SUB INP/OBS CARE 2/35MIN Diagnoses Small bowel obstruction K56.609 Atrial fibrillation I48.91 Hypertension I10 Hyperlipidemia E78.5
--- NOTE | 2024-02-09 05:51 | Surgery Progress Note ---
Date of Service February 09, 2024 Assessment & Plan (1) Small bowel obstruction: Plan: Patient has been admitted on the hospital service. From surgery perspective we recommend the following: Provide analgesics as needed Provide antiemetics as needed Consideration be given to initiating diet beginning with clear liquids as he has had return of bowel function Continue IV fluids until certain oral intake is adequate Mobilize as able Patient takes Eliquis, therefore no further DVT prevention is required Admission and Anticipated Discharge Date Admission Date: February 08, 2024 Supervising Physician Co-Signing Physician Notes I have seen and examined this patient. I agree with the above assessment. The patient is passing flatus, having bowel movements denies nausea vomiting. He notes resolution of abdominal pain and almost complete resolution of tenderness. Patient states he was tender right and left lower quadrants and now is occasionally mildly tender at the right lower quadrant only. At the time of my assessment, the patient has a clear liquid tray in front of him of which she has had orange juice and feels well. He has been afebrile and his labs are stable this a.m. with no leukocytosis. May consider full liquid diet for dinner if he tolerates clear liquids throughout the rest of the day today. The patient mentioned possibility of going home later this evening so if there are no other medical issues at that time, he may be discharged on full liquids for one day then advance to low fiber for 1 week. Otherwise, he may advance past clears as tolerated starting tomorrow a.m. Subjective Patient is resting comfortably in bed. Patient notes that over the past shift he has been passing flatus and had a bowel movement as well. He denies any nausea or vomiting. He denies any abdominal pain. Physical Exam Gastrointestinal (Abdomen): Abdomen is soft and nondistended. There is no pain with palpation. Bowel sounds are present. Results & Data Vital Signs (Past 12 Hours) Vital Signs Temp Pulse Pulse Resp BP BP BP 02/09/24 05:48 102 H 02/09/24 05:26 105 H 145/91 H 02/09/24 03:00 36.3 C L 102 H 18 149/73 H 02/09/24 00:09 99 H 02/08/24 23:38 98 H 148/94 H 02/08/24 23:00 36.8 C 87 18 115/76 02/08/24 20:00 36.7 C 89 18 117/66 02/08/24 18:40 94 H 148/94 H 02/08/24 18:23 113 H 149/93 H Pulse Ox O2 Del Method 02/09/24 05:48 02/09/24 05:26 02/09/24 03:00 95 Room Air 02/09/24 00:09 02/08/24 23:38 02/08/24 23:00 95 Room Air 02/08/24 20:00 94 Room Air 02/08/24 18:40 02/08/24 18:23 PG Care Time/CCT Total # of Minutes Spent Total Time Spent with Patient: Total time spent is greater than 50% in coordination of care (as documented) at patient's floor/unit and/or counseling patient: Coding Level of Care Code 22907 SUB INP/OBS CARE 12/06MIN Diagnoses Small bowel obstruction K56.609
--- NOTE | 2024-02-09 12:34 | Hospitalist Progress Note ---
Date of Service February 09, 2024 Assessment & Plan (1) Small bowel obstruction: Plan: 83yo male presenting with 1 day of abdominal pain as well as nausea. CT findings suggestive of small bowel obstruction with a distal transition point seen in the mid pelvis with gradual proximal transition point in the LLQ. No evidence of strangulation. Patient with prior hernia repair. Patient is passing gas Patient has had a few bowel movements Clinically improving Advance to a clear liquid diet today Continue IV fluids for now Encouraged ambulation (2) Atrial fibrillation: Plan: Chronic. Rate controlled. Patient anticoagulated on Eliquis Now that able to take p.o., will resume home Eliquis, diltiazem and metoprolol Discontinue IV metoprolol (3) Hypertension: Plan: Resume home blood pressure medications Blood pressure will be monitored (4) Hyperlipidemia: Plan: Chronic. Stable Resume atorvastatin Continue Combigan 1 drop OP BID and prednisilone 1 drop OTB for recent cataract surgery Plan DVT proph-Eliquis Dispo-continue stay Admission and Anticipated Discharge Date Admission Date: February 08, 2024 Subjective Patient had 1 large bowel movement yesterday followed by several smaller bowel movements. He is passing gas Review of Systems Review of Systems: All systems reviewed & are unremarkable except as noted in Subjective Physical Exam Physical Exam: General: Awake, conversant Heart: S1, S2/irregular rhythm, no murmur rubs or gallops Lungs: Clear to auscultation bilaterally. Normal effort Abdomen: Soft/nondistended. No tenderness. Positive bowel sounds. No hepatosplenomegaly Extremities: No clubbing/cyanosis. No edema Behavior: Appropriate, cooperative Results & Data Results & Data Vital Signs (Past 12 Hours) Vital Signs Temp Pulse Pulse Resp BP BP BP 02/09/24 07:59 36.3 C L 81 16 147/95 H 02/09/24 07:24 90 02/09/24 05:48 102 H 02/09/24 05:26 105 H 145/91 H 02/09/24 03:00 36.3 C L 102 H 18 149/73 H Pulse Ox O2 Del Method 02/09/24 07:59 97 Room Air 02/09/24 07:24 02/09/24 05:48 02/09/24 05:26 02/09/24 03:00 95 Room Air PG Care Time/CCT Total # of Minutes Spent Total Time Spent with Patient: Total time spent is greater than 50% in coordination of care (as documented) at patient's floor/unit and/or counseling patient: Coding Level of Care Code 93399 SUB INP/OBS CARE MIN Diagnoses Small bowel obstruction K56.609 Atrial fibrillation I48.91 Hypertension I10 Hyperlipidemia E78.5
[2024-02-09] MEDS: ATORVASTATIN 10 MG TAB PO SCH (23:07)
--- NOTE | 2024-02-10 05:37 | Surgery Progress Note ---
Date of Service February 10, 2024 Assessment & Plan (1) Small bowel obstruction: Plan: Patient has been admitted on the hospital service. From surgery perspective we recommend the following: Continue analgesics as needed Continue antiemetics as needed Continue clear liquids for the present time with consideration of advancing diet further once appetite improves Continue IV fluids until certain oral intake is adequate Mobilize as able Patient takes Eliquis, therefore no further DVT prevention is required Admission and Anticipated Discharge Date Admission Date: February 08, 2024 Supervising Physician Co-Signing Physician Notes I have seen and examined this patient. I agree with the above assessment. May continue to advance diet as tolerated and discharge when medically stable. Patient's primary consulting surgical team will return in the a.m. to continue follow-up if the patient is in house. Subjective Patient is currently resting comfortably in bed. With initiation of clear liquid yesterday he denies any worsening abdominal pain or nausea or vomiting. He does report he does not have much in the way of an appetite this morning. Physical Exam Gastrointestinal (Abdomen): Abdomen is soft and nondistended. There is no pain with palpation Results & Data Vital Signs (Past 12 Hours) Vital Signs Temp Pulse Resp BP BP Pulse Ox O2 Del Method 02/10/24 03:12 36.6 C 78 18 142/75 H 93 Room Air 02/09/24 23:14 36.6 C 64 18 157/96 H 95 Room Air 02/09/24 22:31 Room Air 02/09/24 19:20 36.6 C 91 H 18 149/98 H 94 Room Air PG Care Time/CCT Total # of Minutes Spent Total Time Spent with Patient: Total time spent is greater than 50% in coordination of care (as documented) at patient's floor/unit and/or counseling patient: Coding Level of Care Code 94101 SUB INP/OBS CARE 12/06MIN Diagnoses Small bowel obstruction K56.609
--- NOTE | 2024-02-10 12:58 | Hospitalist Progress Note ---
Date of Service February 10, 2024 Assessment & Plan (1) Small bowel obstruction: Plan: 83yo male presenting with 1 day of abdominal pain as well as nausea. CT findings suggestive of small bowel obstruction with a distal transition point seen in the mid pelvis with gradual proximal transition point in the LLQ. No evidence of strangulation. Patient with prior hernia repair. Patient is passing gas Patient has had a few bowel movements Clinically improving Advance to full liquid diet Discontinue IV fluids Continue ambulation (2) Atrial fibrillation: Plan: Chronic. Rate controlled. Patient anticoagulated on Eliquis Now that able to take p.o., I have resumed home Eliquis, diltiazem and metoprolol Discontinued IV metoprolol (3) Hypertension: Plan: Resume home blood pressure medications Blood pressure will be monitored (4) Hyperlipidemia: Plan: Chronic. Stable Resume atorvastatin Continue Combigan 1 drop OP BID and prednisilone 1 drop OTB for recent cataract surgery Plan DVT proph-Eliquis Dispo-continue stay Admission and Anticipated Discharge Date Admission Date: February 08, 2024 Subjective Patient feels well. He has been having loose stools every couple of hours. No abdominal pain. He has been tolerating a clear liquid diet. Review of Systems Review of Systems: All systems reviewed & are unremarkable except as noted in Subjective Physical Exam Physical Exam: General: Awake, conversant Heart: S1, S2/irregular rhythm, no murmur rubs or gallops Lungs: Clear to auscultation bilaterally. Normal effort Abdomen: Soft/nondistended. No tenderness. Positive bowel sounds. No hepatosplenomegaly Extremities: No clubbing/cyanosis. No edema Behavior: Appropriate, cooperative Results & Data Results & Data Vital Signs (Past 12 Hours) Vital Signs Temp Pulse Pulse Resp BP BP Pulse Ox 02/10/24 11:31 130/90 02/10/24 11:09 36.7 C 64 18 162/110 H 96 02/10/24 09:19 02/10/24 07:45 37.0 C 74 18 158/92 H 93 02/10/24 07:00 71 02/10/24 03:12 36.6 C 78 18 142/75 H 93 O2 Del Method 02/10/24 11:31 02/10/24 11:09 Room Air 02/10/24 09:19 Room Air 02/10/24 07:45 Room Air 02/10/24 07:00 02/10/24 03:12 Room Air PG Care Time/CCT Total # of Minutes Spent Total Time Spent with Patient: Total time spent is greater than 50% in coordination of care (as documented) at patient's floor/unit and/or counseling patient: Coding Level of Care Code 96625 SUB INP/OBS CARE 2/35MIN Diagnoses Small bowel obstruction K56.609 Atrial fibrillation I48.91 Hypertension I10 Hyperlipidemia E78.5
--- NOTE | 2024-02-11 10:18 | Discharge Summary ---
Date of Service February 11, 2024 Admission HPI Per Admitting Provider Cristian Skinner is a pleasant 83yo male with history of atrial fibrillation on Eliquis anticoagulation, HTN, HLP presenting with abdominal pain. Patient was awaken this morning at 05:30 with fairly severe mid-abdominal pain. His pain persisted for several hours in the morning then improved throughout the day. Around 15:00 he had return of severe pain - 10/10, non-radiating mid-abdominal pain. He had associated nausea with dry heaving. Last BM was several episodes of loose stools this AM at 05:30. He is not passing gas. Patient denies chest pain, cough, SOB, fever or chills. No history of prior SBO. He has had an inguinal hernia repair in the past. In the ER he is afebrile, hypertensive otherwise HD stable. Pain 10/10, improved after administration of IV Toradol. Now 03/21 ER Course: Toradol 15mg IV NSS at 80mL/hr Atorvastatin 10mg Metoprolol 25mg Apixaban ordered - not administered as patient refused Admission Exam Per Admitting Provider General: patient resting comfortably, NAD, non-toxic in appearance, AA&O x 4 Skin: warm, dry, intact, no rashes or lesions HEENT: NC/AT, PERRL, EOMI, anicteric sclera, conjunctiva without injection, external ear normal to inspection and nontender, nares patent, moist mucus membranes, dentition intact, no oropharyngeal lesions, neck supple, trachea midline, no LAD, no thyromegaly, no JVD Heart: +S1/S2, regular, no m/r/g Lungs: equal air entry bilaterally, no rales/rhonchi/wheezes Abd: diminished bowel sounds, soft, mildly tender with deep palpation, no rebound/guarding, ND, no masses/organomegaly/ascites Ext: warm, 2+ pulses in UE/LE bilaterally, no clubbing/cyanosis or edema Neuro: nonfocal, patient AA&O x 4, speech intact, no facial droop, moving all extremities on command with equal strength 5/5 Principal Diagnosis Bowel obstruction Discharge Exam General: Awake, conversant Heart: S1, S2/irregular rhythm, no murmur rubs or gallops Lungs: Clear to auscultation bilaterally. Normal effort Abdomen: Soft/nondistended. No tenderness. Positive bowel sounds. No hepatosplenomegaly Extremities: No clubbing/cyanosis. No edema Behavior: Appropriate, cooperative Discharge Data Allergies Allergy/AdvReac Type Severity Reaction Status Date / Time tetanus toxoid, adsorbed Allergy Unknown HIVES Verified 01/23/24 08:26 Consultations 02/06/24 19:35 ED Decision to Admit Stat 02/06/24 19:43 Consult General Surgery Routine 02/06/24 22:14 Consult General Surgery Routine Ordered Studies 02/06/24 17:46 CT abd pelvis IV con only Stat Hospital Course (1) Small bowel obstruction: 83yo male presenting with 1 day of abdominal pain as well as nausea. CT findings suggestive of small bowel obstruction with a distal transition point seen in the mid pelvis with gradual proximal transition point in the LLQ. No evidence of strangulation. Patient with prior hernia repair. Patient was treated conservatively with bowel rest, IV fluids Clinically improved, now tolerating solid diet and having bowel movements Plan to discharge today (2) Atrial fibrillation: Chronic. Rate controlled. Patient anticoagulated on Eliquis Now that able to take p.o., I have resumed home Eliquis, diltiazem and metoprolol Discontinued IV metoprolol (3) Hypertension: Resume home blood pressure medications (4) Hyperlipidemia: Chronic. Stable Resume atorvastatin Continue Combigan 1 drop OP BID and prednisilone 1 drop OTB for recent cataract surgery Plan DVT proph-Eliquis Dispo-continue stay Total Time Total Time Spent Total Time Spent (In Minutes): 35 Discharge Plan Discharge Items Patient Disposition: Home - Self-Care Reason For Visit: ABDOMINAL PAIN, SBO Discharge Diagnosis: Bowel obstruction Activity: Resume your previous activity Non-emergency contact: Primary Care Provider Call non-emergency contact if: you have any medication questions and your symptoms worsen Follow-up/Referrals: Agustin Majano MD [Primary Care Provider] - 02/19/24 10:25 am Diet: Heart Healthy Addtl Attending Provider Instructions: -Advised to follow-up with PCP in 1 week Pending Studies at Discharge: No Stand-Alone Forms: My [facility] [employer] Medications and DC Order Prescriptions: Continued multivitamin Tablet 1 tab PO QAM metoprolol succinate 25 mg Tablet Extended Release 24 Hr 25 mg PO BID Eliquis 5 mg Tablet 5 mg PO BID lutein 20 mg Capsule 20 mg PO QAM diltiazem HCl 120 mg Capsule,Ext.Rel 24h Degradable 120 mg PO QAM cranberry 400 mg Capsule 400 mg PO QAM Rx Instructions: administer with a meal cholecalciferol (vitamin D3) [Vitamin D3] 25 mcg (1,000 unit) Tablet 25 mcg PO QAM omega 6-jht-jfv-fish oil [Fish Oil] 60-90-500 mg Capsule 1 cap PO QAM Probiotic 3 billion cell Capsule 3,000 mmu cells PO QAM Rx Instructions: administer with a meal atorvastatin 10 mg Tablet 10 mg PO QPM prednisolone acetate 1 % Drops,Suspension 1 drp OPR TID brimonidine-timolol [Combigan] 0.2-0.5 % Drops 1 drp OPB BID Discharge Orders: Discharge Order (Routine); Ordered 02/11/24 Ordered By: Remberto Loving/Other Patient Handouts: Small Bowel Obstruction Admission Data Admit Date/Time: 02/08/24 12:58 Attending Provider: Remberto Berry Admit Provider: Maty Landin Primary Care Provider: Agustin Majano Other Providers: Laura Richardson; Maty Landin Other Interventions: Discharge Summary Assessment (RN) Last Done: 02/11/24 10:12 Coding Level of Care Code 72686 INP/OBS DISCH >30 MIN Diagnoses Small bowel obstruction K56.609 Atrial fibrillation I48.91 Hypertension I10 Hyperlipidemia E78.5
== END 2024-02-11 11:13 | disposition home or self-care (01) | DRG 389 ==
LOC: 3N 17:25 → ED 17:25 → SUATTDRO 20:09 → 3N 21:15 → 2N 02-08 10:22

== ENCOUNTER 2024-12-09 18:11 | Inpatient (IN) ==
--- NOTE | 2024-12-09 18:32 | Emergency Department Note ---
Impression & Plan TJ (acute kidney injury) ADMIT ED Provider Note HPI: History obtained from patient. The patient is a 84-year-old gentleman with history of hypertension, atrial fibrillation currently on Eliquis, presents the emergency department with a chief complaint of subjective fever/chills. Patient states he has had the symptoms for the past 3 days, patient states he had a headache when his symptoms began however today he has not had a headache. Patient states he has had nausea and he also developed some left lower quadrant abdominal pain today. Patient states he is also had some loose bowel movements. Patient denies any vomiting. On arrival here to the ED the patient is hemodynamically stable, he is afebrile on arrival, he otherwise appears to be in no acute distress. ROS: - Per HPI Differential Diagnosis: Acute colitis, viral gastroenteritis, influenza A, COVID-19, diverticulitis flare, intra-abdominal abscess, perforated viscus, amongst other potential pathologies. *Outpatient medications and allergy history reviewed. 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 Lab work shows a leukocytosis of 11.77, hemoglobin is normal, platelet count is slightly low at 120, CMP does not show any critical findings, creatinine is elevated at 1.98 which is above baseline for the patient, patient was given IV fluids, BUN is slightly elevated at 32, lactic acid is within normal limits at 1.5, high-sensitivity troponin is mildly elevated at 30.5, patient denies any chest pain, EKG does not show any acute ischemic changes, suspect demand ischemia. Lipase is mildly elevated at 188, procalcitonin is 0.71. CT imaging of the abdomen pelvis was obtained, this shows evidence of enterocolitis. Patient did spike a fever while here in the ED therefore blood cultures were obtained. Given the patient's ongoing symptoms his case was discussed with the on-call hospitalist, Dr. Crowder, and the patient was placed for admission in stable condition. Will defer antibiotic therapy to the inpatient team as stool PCR testing was sent and was still pending at the time of admission. Following admission, stool PCR did return positive for Campylobacter, admitting team was informed and will defer further management to the admitting team. Consultants/Discussions held with other healthcare providers: -Hospitalist, Dr. Crowder Disposition discussion held by myself with: -Patient and patient's family member at the bedside Diagnosis: 1. Diarrhea, acute 2. Left lower quadrant abdominal pain, acute 3. Enterocolitis on CT imaging, acute 4. Campylobacter positive stool PCR, acute 5. Acute kidney injury 6. Elevated high-sensitivity troponin level, acute 7. Leukocytosis, acute 8. Fever, acute Disposition: Admission Drew Torres DO Emergency Medicine Past Med/Surg History Problem List (Updated 12/09/24 @ 22:37 by Drew Torres DO) TJ (acute kidney injury) (Acute) Hyponatremia Hypomagnesemia Inguinal hernia Thrombocytopenia Leukocytosis Elevated troponin Fever Enterocolitis Acute kidney injury Small bowel obstruction (Acute) Ganglion of right wrist Trigger finger, right ring finger Left knee pain Left knee DJD Encounter for pre-operative examination Inhalation injury (Acute) Hypertension Atrial fibrillation DX 01/2019; S/P CARDIOVERSION x 2 in 03/2019 within a week, 2nd one successful x 4 days. on sakina douglas with Dr. Guallpa at [facility] Hypertension Hyperlipidemia Medical History SBO (small bowel obstruction) admitted to [facility] on 02/06/24 > resolved on own with NPO/fluids History of cardioversion remote hx Diverticular disease Hyperlipidemia Hypertension Atrial fibrillation DX 01/2019; S/P CARDIOVERSION x 2 in 03/2019 within a week, 2nd one successful x 4 days. on sakina douglas with Dr. Guallpa at [facility] Surgical History History of cataract surgery right > fragment remains, reason for up coming eye surgery Hx of hand surgery (~08/2023) x 2, trigger finger Bilateral Status post wrist surgery rt History of shoulder surgery lt History of inguinal hernia repair rt History of carpal tunnel surgery of right wrist History of esophagogastroduodenoscopy (EGD) History of colonoscopy Family History Mother No problems noted. Father Congestive heart failure (CHF) Aortic valve disease, rheumatic Son , AGE 47 S/T [place] Myocardial infarction Social History Smoking Status: Former smoker Tobacco Type: Cigarettes Cigarettes Per Day: 1/2 to 1 PPD; Second Hand Exposure: No; Do You Dip or Chew Tobacco: No; Hx Alcohol Use: Yes Alcohol type: wine Hx Substance Use: No Preferred Language: Samoan Communication Ability: Effective Artist'S Manager Required: No Beliefs That Will Affect Care: None Current Living Situation: Spouse Feels Safe at Home: Yes Assistive Devices: Hearing Aid - Bilateral Allergies Allergies Allergy/AdvReac Type Severity Reaction Status Date / Time tetanus toxoid, adsorbed Allergy Unknown HIVES Verified 02/13/24 08:02 Home Meds Home Medications Medication Instructions Recorded Confirmed apixaban 5 mg tablet (Eliquis) 5 mg PO BID 01/31/19 12/09/24 metoprolol succinate 25 mg 25 mg PO BID 01/31/19 12/09/24 tablet,extended release 24 hr multivitamin 1 tab PO QAM 01/31/19 12/09/24 lutein 20 mg capsule 20 mg PO QAM 02/14/19 12/09/24 diltiazem HCl 120 mg 120 mg PO QAM 02/27/19 12/09/24 capsule,extended release 24 hr, controlled atorvastatin 10 mg tablet 10 mg PO QPM 01/15/24 12/09/24 cholecalciferol (vitamin D3) 25 25 mcg PO QAM 01/15/24 12/09/24 mcg (1,000 unit) tablet (Vitamin D3) omega 8-mml-nqc-fish oil 60 mg-90 1 cap PO QAM 01/15/24 12/09/24 mg-500 mg capsule (Fish Oil) brimonidine 0.2 %-timolol 0.5 % 1 drp OPB BID 02/07/24 12/09/24 eye drops (Combigan) azelastine 137 mcg (0.1 %) nasal 1 spray intranasal [facility] 12/09/24 12/09/24 spray cranberry 500 mg capsule 1,000 mg PO BID 12/09/24 12/09/24 Results & Data (ED) Vital Signs Vital Signs - 24 hr 12/09/24 18:11 12/09/24 18:31 12/09/24 18:48 Temperature 36.6 C Temperature Source Temporal Artery Scan Pulse Rate 87 117 H Pulse Rate [Apical] Respiratory Rate 18 Respiratory Depth Blood Pressure 149/84 H Blood Pressure [Right Arm] Blood Pressure Mean 105 Blood Pressure Mean [Right Arm] Blood Pressure Position [Right Arm] Pulse Oximetry 99 Oxygen Delivery Method Room Air Sepsis Recent Fever Within 48 Hours No Sepsis New/Unexplained Change in Mental Status N/A Sepsis Action Taken by Nursing No Action Required 12/09/24 19:58 12/09/24 21:00 12/09/24 22:02 Temperature 39.5 C H 37.3 C Temperature Source Oral Oral Pulse Rate Pulse Rate [Apical] 87 107 H 93 H Respiratory Rate 30 H 20 18 Respiratory Depth Normal Blood Pressure Blood Pressure [Right Arm] 135/84 Blood Pressure Mean Blood Pressure Mean [Right Arm] 101 Blood Pressure Position [Right Arm] Semi-fowlers Pulse Oximetry 93 93 Oxygen Delivery Method Room Air Room Air Sepsis Recent Fever Within 48 Hours Sepsis New/Unexplained Change in Mental Status Sepsis Action Taken by Nursing Laboratory Data 12/09/24 18:43 12/09/24 18:43 Lab Results 12/09/24 12/09/24 12/09/24 Range/Units 18:43 20:13 20:26 WBC 11.77 H (4.8-10.8) K/ul RBC 4.62 L (4.70-6.10) M/uL Hgb 15.2 (14.0-18.0) g/dl Hct 43.8 (42.0-52.0) % MCV 94.8 (80.0-100.0) fL MCH 32.9 (25.0-34.0) pg MCHC 34.7 (32.0-36.0) g/dL RDW Std Deviation 48.7 H (36.4-46.3) fL RDW Coeff of Darlene 14.1 (11.5-14.5) % Plt Count 120 L (130-400) K/uL MPV 11.1 (9.4-12.4) fL Immature Gran % (Auto) 0.4 % Neut % (Auto) 90.0 % Lymph % (Auto) 5.0 % Morehouse % (Auto) 4.4 % Eos % (Auto) 0.0 % Baso % (Auto) 0.2 % Neut # (Auto) 10.59 H (1.40-6.50) K/uL Lymph # (Auto) 0.59 L (1.20-3.40) K/uL Morehouse # (Auto) 0.52 (0.11-0.59) K/uL Eos # (Auto) 0.00 (0.00-0.50) K/uL Baso # (Auto) 0.02 (0.00-0.20) K/uL Immature Gran # (Auto) 0.05 (0.01-0.20) K/uL Toxic Vacuolation 1+ Polychromasia 1+ PT 13.5 H (9.0-12.0) Seconds INR 1.3 H (0.9-1.1) Sodium 135 L (136-145) mmol/L Potassium 3.8 (3.5-5.1) mmol/L Chloride 99 (98-107) mmol/L Carbon Dioxide 27 (21-32) mmol/L Anion Gap 9 (3-11) BUN 32 H (6-23) mg/dl Creatinine 1.98 H (0.6-1.4) mg/dl Est Cr Clr Drug Dosing 28.9 ml/min eGFR 33.11 BUN/Creatinine Ratio 16.2 (10-20) Glucose 132 H (70-99(Fasting)) mg/dl Lactate 1.5 (0.4-2.0) mmol/L Calcium 8.5 L (8.6-10.3) mg/dl Magnesium (1.7-2.4) mg/dl Total Bilirubin 1.6 H (0.2-1.0) mg/dl AST 24 (13-39) U/L ALT 26 (7-52) U/L Alkaline Phosphatase 65 (34-104) U/L Troponin I High Sens 30.4 H (0-20) pg/ml Total Protein 7.2 (6.0-8.3) gm/dl Albumin 4.6 (3.4-5.0) gm/dl Globulin 2.6 (2.5-4.0) gm/dl Albumin/Globulin Ratio 1.8 (0.9-2) Lipase 188 H (11-82) U/L Procalcitonin 0.71 H (0-0.5) ng/ml Urine Color Dark Yellow Urine Appearance Clear (Clear) Urine pH 5.0 (4.5-7.5) Ur Specific [place] > 1.045 H (1.000-1.030) Urine Protein 1+ H (Negative) Urine Glucose (UA) Negative (Negative) Urine Ketones Negative (Negative) Urine Blood Trace H (Negative) Urine Nitrite Negative (Negative) Urine Bilirubin Negative (Negative) Urine Urobilinogen Negative (Negative) Ur Leukocyte Esterase Negative (Negative) Urine WBC (Auto) 0-5 (0-5) /hpf Urine RBC (Auto) 0-2 (0-2) /hpf U Hyaline Cast (Auto) >20 H (0-2) /lpf U Epithel Cells (Auto) 0-2 (0-2) /hpf Urine Bacteria (Auto) None Seen (None Seen) Hyaline Casts Present A (None Presnt) /lpf Stl C. cayetanensis PCR (NotDetected) Stool Rotavirus A PCR (NotDetected) Stl Adenov F 40/41 PCR (NotDetected) Stool Astrovirus (PCR) (NotDetected) Stool Campylobacter PCR (NotDetected) Stl C. diff Tox B Gene (Neg) Stool Cryptosporidium PCR (NotDetected) Stl E.coli Shiga Tox PCR (NotDetected) Stl Enterotoxigenic E PCR (NotDetected) Stool EPEC (PCR) (NotDetected) Stool EAEC (PCR) (NotDetected) Stl E. histolytica PCR (NotDetected) Stool Giardia Lamblia PCR (NotDetected) Stool Salmonella PCR (NotDetected) Stool Sapovirus (PCR) (NotDetected) Stl P. shigelloides PCR (NotDetected) Stl Shigella/EIEC PCR (NotDetected) St Y.enterocolitica PCR (NotDetected) Stool Vibrio (PCR) (NotDetected) Stl Vibrio cholerae PCR (NotDetected) Stl Norovirus GI/GII PCR (NotDetected) Adenovirus (PCR) Not Detected (NotDetected) B. pertussis DNA (PCR) Not Detected (NotDetected) B.parapertussis DNA PCR Not Detected (NotDetected) C. pneumoniae DNA (PCR) Not Detected (NotDetected) Coronavirus OC43 (PCR) Not Detected (NotDetected) Coronavirus HKU1 (PCR) Not Detected (NotDetected) Coronavirus 229E (PCR) Not Detected (NotDetected) SARS-CoV-2 (PCR) Not Detected (NotDetected) Coronavirus NL63 (PCR) Not Detected (NotDetected) Human Metapneumovir PCR Not Detected (NotDetected) Influenza Type A (PCR) Not Detected (NotDetected) Influenza Type B (PCR) Not Detected (NotDetected) M. pneumoniae (PCR) Not Detected (NotDetected) Parainfluenza 1 (PCR) Not Detected (NotDetected) Parainfluenza 2 (PCR) Not Detected (NotDetected) Parainfluenza 3 (PCR) Not Detected (NotDetected) Parainfluenza 4 (PCR) Not Detected (NotDetected) RSV (PCR) Not Detected (NotDetected) Entero/Rhino (PCR) Not Detected (NotDetected) 12/09/24 Range/Units 20:45 WBC (4.8-10.8) K/ul RBC (4.70-6.10) M/uL Hgb (14.0-18.0) g/dl Hct (42.0-52.0) % MCV (80.0-100.0) fL MCH (25.0-34.0) pg MCHC (32.0-36.0) g/dL RDW Std Deviation (36.4-46.3) fL RDW Coeff of Darlene (11.5-14.5) % Plt Count (130-400) K/uL MPV (9.4-12.4) fL Immature Gran % (Auto) % Neut % (Auto) % Lymph % (Auto) % Morehouse % (Auto) % Eos % (Auto) % Baso % (Auto) % Neut # (Auto) (1.40-6.50) K/uL Lymph # (Auto) (1.20-3.40) K/uL [place]house # (Auto) (0.11-0.59) K/uL Eos # (Auto) (0.00-0.50) K/uL Baso # (Auto) (0.00-0.20) K/uL Immature Gran # (Auto) (0.01-0.20) K/uL Toxic Vacuolation Polychromasia PT (9.0-12.0) Seconds INR (0.9-1.1) Sodium (136-145) mmol/L Potassium (3.5-5.1) mmol/L Chloride (98-107) mmol/L Carbon Dioxide (21-32) mmol/L Anion Gap (3-11) BUN (6-23) mg/dl Creatinine (0.6-1.4) mg/dl Est Cr Clr Drug Dosing ml/min eGFR BUN/Creatinine Ratio (10-20) Glucose (70-99(Fasting)) mg/dl Lactate (0.4-2.0) mmol/L Calcium (8.6-10.3) mg/dl Magnesium 1.5 L (1.7-2.4) mg/dl Total Bilirubin (0.2-1.0) mg/dl AST (13-39) U/L ALT (7-52) U/L Alkaline Phosphatase (34-104) U/L Troponin I High Sens 29.8 H (0-20) pg/ml Total Protein (6.0-8.3) gm/dl Albumin (3.4-5.0) gm/dl Globulin (2.5-4.0) gm/dl Albumin/Globulin Ratio (0.9-2) Lipase (11-82) U/L Procalcitonin (0-0.5) ng/ml Urine Color Urine Appearance (Clear) Urine pH (4.5-7.5) Ur Specific [place] (1.000-1.030) Urine Protein (Negative) Urine Glucose (UA) (Negative) Urine Ketones (Negative) Urine Blood (Negative) Urine Nitrite (Negative) Urine Bilirubin (Negative) Urine Urobilinogen (Negative) Ur Leukocyte Esterase (Negative) Urine WBC (Auto) (0-5) /hpf Urine RBC (Auto) (0-2) /hpf U Hyaline Cast (Auto) (0-2) /lpf U Epithel Cells (Auto) (0-2) /hpf Urine Bacteria (Auto) (None Seen) Hyaline Casts (None Presnt) /lpf Stl C. cayetanensis PCR Not Detected (NotDetected) Stool Rotavirus A PCR Not Detected (NotDetected) Stl Adenov F 40/41 PCR Not Detected (NotDetected) Stool Astrovirus (PCR) Not Detected (NotDetected) Stool Campylobacter PCR DETECTED A* (NotDetected) Stl C. diff Tox B Gene Negative Cdiff Gene (Neg) Stool Cryptosporidium PCR Not Detected (NotDetected) Stl E.coli Shiga Tox PCR Not Detected (NotDetected) Stl Enterotoxigenic E PCR Not Detected (NotDetected) Stool EPEC (PCR) Not Detected (NotDetected) Stool EAEC (PCR) Not Detected (NotDetected) Stl E. histolytica PCR Not Detected (NotDetected) Stool Giardia Lamblia PCR Not Detected (NotDetected) Stool Salmonella PCR Not Detected (NotDetected) Stool Sapovirus (PCR) Not Detected (NotDetected) Stl P. shigelloides PCR Not Detected (NotDetected) Stl Shigella/EIEC PCR Not Detected (NotDetected) St Y.enterocolitica PCR Not Detected (NotDetected) Stool Vibrio (PCR) Not Detected (NotDetected) Stl Vibrio cholerae PCR Not Detected (NotDetected) Stl Norovirus GI/GII PCR Not Detected (NotDetected) Adenovirus (PCR) (NotDetected) B. pertussis DNA (PCR) (NotDetected) B.parapertussis DNA PCR (NotDetected) C. pneumoniae DNA (PCR) (NotDetected) Coronavirus OC43 (PCR) (NotDetected) Coronavirus HKU1 (PCR) (NotDetected) Coronavirus 229E (PCR) (NotDetected) SARS-CoV-2 (PCR) (NotDetected) Coronavirus NL63 (PCR) (NotDetected) Human Metapneumovir PCR (NotDetected) Influenza Type A (PCR) (NotDetected) Influenza Type B (PCR) (NotDetected) M. pneumoniae (PCR) (NotDetected) Parainfluenza 1 (PCR) (NotDetected) Parainfluenza 2 (PCR) (NotDetected) Parainfluenza 3 (PCR) (NotDetected) Parainfluenza 4 (PCR) (NotDetected) RSV (PCR) (NotDetected) Entero/Rhino (PCR) (NotDetected) Administered Medications Sodium Chloride (Nss) 1,000 mls @ 100 mls/hr IV .Q10H RENNY Stop: 12/10/24 17:14 Last Admin: 12/09/24 21:40 Dose: 100 mls/hr Documented By: LOLIS Magnesium Sulfate/Dextrose (Magnesium Sulfate / D5w) 1 gm in 100 mls @ 50 mls/hr IV Q2H RENNY Stop: 12/10/24 01:29 Last Admin: 12/09/24 21:40 Dose: 50 mls/hr Documented By: LOLIS Discontinued Medications Sodium Chloride (Nss) 1,000 mls @ 999 mls/hr IV .Q1H1M ONE Stop: 12/09/24 19:31 Last Infusion: 12/09/24 19:59 Dose: Infused Documented By: Admin: 12/09/24 18:46 Dose: 999 mls/hr Documented By: LOLIS Acetaminophen (Ofirmev) 1,000 mg in 100 mls @ 400 mls/hr IV NOW STA Stop: 12/09/24 20:17 Last Infusion: 12/09/24 20:27 Dose: Infused Documented By: Admin: 12/09/24 20:06 Dose: 400 mls/hr Documented By: LOLIS Sodium Chloride (Nss) 1,000 mls @ 999 mls/hr IV .Q1H1M ONE Stop: 12/09/24 21:34 Last Infusion: 12/09/24 21:51 Dose: Infused Documented By: Admin: 12/09/24 20:46 Dose: 999 mls/hr Documented By: LOLIS Potassium Chloride (K Duran / Wtr) 10 meq in 100 mls @ 100 mls/hr IV Q1H RENNY Stop: 12/09/24 22:29 Last Admin: 12/09/24 21:40 Dose: 100 mls/hr Documented By: LOLIS Ioversol (Optiray 320 100ml) 93 ml IV ONCE ONE Stop: 12/09/24 19:42 Last Admin: 12/09/24 19:41 Dose: 93 ml Documented By: FIDEL Imaging Data Radiologist's Impression: Abdomen/Pelvis CT 12/09/24 18:30 Exam(s): CT ABDOMEN + PELVIS With Contrast IV Amt: 93 ml optiray 320 EXAM: CT Abdomen and Pelvis With Intravenous Contrast CLINICAL HISTORY: Reason for exam: LLQ pain. TECHNIQUE: Axial computed tomography images of the abdomen and pelvis with intravenous contrast. CTDI is 15.41 mGy and DLP is 674.55 mGy-cm. Automated exposure control was utilized for the study. A dose lowering technique was utilized adhering to the principles of ALARA. CONTRAST: Patient received 93 ml optiray 320 of IV contrast COMPARISON: 02/06/24 FINDINGS: Lung bases: Unremarkable. ABDOMEN: Liver: Unremarkable. No mass. Gallbladder and bile ducts: Unremarkable. No calcified stones. No ductal dilation. Pancreas: Unremarkable. No mass. No ductal dilation. Spleen: Unremarkable. No splenomegaly. Adrenals: Unremarkable. No mass. Kidneys and ureters: Unremarkable. No solid mass. No hydronephrosis. Stomach and bowel: Sigmoid diverticulosis without diverticulitis. No bowel obstruction. Pancolonic wall thickening, along with distal small bowel wall thickening, consistent with infectious or inflammatory enterocolitis. PELVIS: Appendix: Appendix not identified. Bladder: Unremarkable. No mass. Reproductive: Prostatomegaly. ABDOMEN and PELVIS: Intraperitoneal space: Mesenteric edema. No free air or significant free fluid. Bones/joints: No acute fracture. No dislocation. Soft tissues: Small fat-containing inguinal hernias. Small knuckle of sigmoid colon extends into the left inguinal hernia. Trace ascites within the right inguinal hernia. Vasculature: Atherosclerosis. No aortic aneurysm. Lymph nodes: Unremarkable. No enlarged lymph nodes. IMPRESSION: Pancolonic wall thickening, along with distal small bowel wall thickening, consistent with infectious or inflammatory enterocolitis. Left inguinal hernia containing small knuckle of sigmoid colon, without evidence of incarceration or bowel obstruction. Electronically signed by: Doe De La Cruz M.D. 12/09/24 20:17 PM Chest X-Ray 12/09/24 20:02 Exam(s): XR CXR 1 VIEW EXAM: XR Chest, 1 View CLINICAL HISTORY: Reason for exam: fever. TECHNIQUE: Frontal view of the chest. COMPARISON: 01/16/18 FINDINGS: Lungs: Unremarkable. No consolidation. Pleural space: Unremarkable. No pleural effusion or pneumothorax. Heart: Cardiomegaly. Bones/joints: No acute fracture. No dislocation. IMPRESSION: Cardiomegaly. Lungs appear clear. Electronically signed by: Doe De La Cruz M.D. 12/09/24 20:47 PM Discharge Plan Visit Data Chief Complaint: Flu Like Symptoms Stated Complaint: FLU FOR A WEEK, HAS AFIB, HEADACHE, DIARRHEA ED Provider: Drew Torres Discharge Problem: TJ (acute kidney injury) Patient Disposition: Admitted As Inpatient Discharge Instructions Interventions: ED Discharge Assessment Last Done: 12/09/24 22:03 Prescriptions Prescriptions: No Action multivitamin Tablet 1 tab PO QAM metoprolol succinate 25 mg Tablet Extended Release 24 Hr 25 mg PO BID Eliquis 5 mg Tablet 5 mg PO BID lutein 20 mg Capsule 20 mg PO QAM diltiazem HCl 120 mg Capsule,Ext.Rel 24h Degradable 120 mg PO QAM cholecalciferol (vitamin D3) [Vitamin D3] 25 mcg (1,000 unit) Tablet 25 mcg PO QAM omega 9-eae-mhb-fish oil [Fish Oil] 60-90-500 mg Capsule 1 cap PO QAM atorvastatin 10 mg Tablet 10 mg PO QPM brimonidine-timolol [Combigan] 0.2-0.5 % Drops 1 drp OPB BID azelastine 137 mcg (0.1 %) spray,non-aerosol 1 spray INTRANASAL [facility] cranberry 500 mg Capsule 1,000 mg PO BID Rx Instructions: administer with meals
[2024-12-09] MEDS: SODIUM CHLORIDE 0.9% 1,000 ML IV ONE ×2 (18:46→20:46)
[2024-12-09 19:13] LABS: Albumin Globulin Ratio 1.8 (0.9-2); Albumin Level 4.6 gm/dl (3.4-5.0); BUN Creatinine Ratio 16.2 (10-20); Bilirubin,Total 1.6 mg/dl (0.2-1.0); Calcium 8.5 mg/dl (8.6-10.3); Creatinine Clr Calc Pharmacy 28.9 ml/min; Globulin 2.6 gm/dl (2.5-4.0); Potassium 3.8 mmol/L (3.5-5.1); Total Protein 7.2 gm/dl (6.0-8.3)
[2024-12-09 19:19] LABS: Troponin I High Sensitivity 30.4 pg/ml (0-20)
[2024-12-09 19:38] LABS: Adenovirus PCR Not Detected (NotDetected); Bordetella parapertussis PCR Not Detected (NotDetected); Bordetella pertussis PCR Not Detected (NotDetected); Chlamydia pneumoniae PCR Not Detected (NotDetected); Coronavirus 229E PCR Not Detected (NotDetected); Coronavirus CoV-2 (COVID19)PCR Not Detected (NotDetected); Coronavirus HKU1 PCR Not Detected (NotDetected); Coronavirus NL63 PCR Not Detected (NotDetected); Coronavirus OC43PCR Not Detected (NotDetected); Human Metapneumovirus PCR Not Detected (NotDetected); Influenza A PCR Not Detected (NotDetected); Influenza B PCR Not Detected (NotDetected); Mycoplasma pneumoniae PCR Not Detected (NotDetected); Parainfluenza Virus 1 PCR Not Detected (NotDetected); Parainfluenza Virus 2 PCR Not Detected (NotDetected); Parainfluenza Virus 3 PCR Not Detected (NotDetected); Parainfluenza Virus 4 PCR Not Detected (NotDetected); Respiratory Syncytial VirusPCR Not Detected (NotDetected); Rhinovirus/Enterovirus PCR Not Detected (NotDetected)
[2024-12-09 19:41] LABS: INR 1.3 (0.9-1.1); Prothrombin Time 13.5 Seconds (9.0-12.0)
[2024-12-09] MEDS: OPTIRAY 320 100ml IV ONE (19:41)
[2024-12-09 20:00] LABS: Basophils # (auto) 0.02 K/uL (0.00-0.20); Basophils % (auto) 0.2 %; Hematocrit (blood only) 43.8 % (42.0-52.0); Hemoglobin 15.2 g/dl (14.0-18.0); Immature Granulocytes # (auto) 0.05 K/uL (0.01-0.20); Immature Granulocytes % (auto) 0.4 %; Lymphocytes # (auto) 0.59 K/uL (1.20-3.40); Mean Corpuscular Hemoglobin 32.9 pg (25.0-34.0); Mean Corpuscular Hgb Conc 34.7 g/dL (32.0-36.0); Mean Corpuscular Volume 94.8 fL (80.0-100.0); Mean Platelet Volume 11.1 fL (9.4-12.4); Monocytes # (auto) 0.52 K/uL (0.11-0.59); Monocytes % (auto) 4.4 %; Neutrophils # (auto) 10.59 K/uL (1.40-6.50); Platelet Count 120 K/uL (130-400); Polychromasia 1+; RDW Coefficient of Variation 14.1 % (11.5-14.5); RDW Standard Deviation 48.7 fL (36.4-46.3); Red Blood Count 4.62 M/uL (4.70-6.10); Toxic Vacuolation 1+; White Blood Count 11.77 K/ul (4.8-10.8)
[2024-12-09] MEDS: ACETAMINOPHEN 1,000 MG/100 ML VIAL IV STA (20:06)
--- NOTE | 2024-12-09 20:18 | CT Scan Report ---
Exam(s): CT ABDOMEN + PELVIS With Contrast IV Amt: 93 ml optiray 320 EXAM: CT Abdomen and Pelvis With Intravenous Contrast CLINICAL HISTORY: Reason for exam: LLQ pain. TECHNIQUE: Axial computed tomography images of the abdomen and pelvis with intravenous contrast. CTDI is 15.41 mGy and DLP is 674.55 mGy-cm. Automated exposure control was utilized for the study. A dose lowering technique was utilized adhering to the principles of ALARA. CONTRAST: Patient received 93 ml optiray 320 of IV contrast COMPARISON: 02/06/24 FINDINGS: Lung bases: Unremarkable. ABDOMEN: Liver: Unremarkable. No mass. Gallbladder and bile ducts: Unremarkable. No calcified stones. No ductal dilation. Pancreas: Unremarkable. No mass. No ductal dilation. Spleen: Unremarkable. No splenomegaly. Adrenals: Unremarkable. No mass. Kidneys and ureters: Unremarkable. No solid mass. No hydronephrosis. Stomach and bowel: Sigmoid diverticulosis without diverticulitis. No bowel obstruction. Pancolonic wall thickening, along with distal small bowel wall thickening, consistent with infectious or inflammatory enterocolitis. PELVIS: Appendix: Appendix not identified. Bladder: Unremarkable. No mass. Reproductive: Prostatomegaly. ABDOMEN and PELVIS: Intraperitoneal space: Mesenteric edema. No free air or significant free fluid. Bones/joints: No acute fracture. No dislocation. Soft tissues: Small fat-containing inguinal hernias. Small knuckle of sigmoid colon extends into the left inguinal hernia. Trace ascites within the right inguinal hernia. Vasculature: Atherosclerosis. No aortic aneurysm. Lymph nodes: Unremarkable. No enlarged lymph nodes. IMPRESSION: Pancolonic wall thickening, along with distal small bowel wall thickening, consistent with infectious or inflammatory enterocolitis. Left inguinal hernia containing small knuckle of sigmoid colon, without evidence of incarceration or bowel obstruction. Electronically signed by: Doe De La Cruz M.D. 12/09/24 20:17 PM
[2024-12-09 20:47] LABS: Appearance Urine Clear (Clear); Bacteria Urine Automated None Seen (None Seen); Bilirubin Urine Negative (Negative); Blood Urine Trace (Negative); Cast Urine Automated >20 /lpf (0-2); Color Urine Dark Yellow; Epithelial Cell Urine Auto 0-2 /hpf (0-2); Glucose Urine UA Negative (Negative); Hyaline Casts Urine Present /lpf (None Presnt); Ketones Urine Negative (Negative); Leukocyte Esterase Urine Negative (Negative); Nitrite Urine Negative (Negative); Protein Urine 1+ (Negative); RBC Urine Automated 0-2 /hpf (0-2); Specific Gravity Urine > 1.045 (1.000-1.030); Urobilinogen Urine Negative (Negative); WBC Urine Automated 0-5 /hpf (0-5)
--- NOTE | 2024-12-09 20:48 | History & Physical Report ---
Date of Service December 09, 2024 Assessment & Plan (1) Acute kidney injury: (2) Hypomagnesemia: (3) Hyponatremia: (4) Campylobacter enteritis: (5) Leukocytosis: (6) Thrombocytopenia: (7) Fever: (8) Elevated troponin: (9) Atrial fibrillation: (10) Inguinal hernia: Plan Patient is an 84-year-old male with a past medical history of A-fib on Eliquis, hypertension, hyperlipidemia, cataracts. He presents today due to flulike symptoms for approximately 3 days. He is being admitted due to a fever for 39.5C, TJ, and elevated troponin. #TJ/electrolyte abnormalities likely 2/2 to dehydration with acute infection/diarrhea Cr increased to 1.98, BUN 32 (baseline) UA elevated specific gravity, 1+ protein, hyaline casts given 2L NSS bolus in ED promote oral hydration and IVF resuscitation overnight with NSS 100 ml/hr hypomagnesemia - Mg 1.6 -> 2 G IV ordered Hyponatremia - Na 135 K+ optimized with goal of 4.0 -> 10 MeQ Iv ordered trend Mg and BMP #Campylobacter/enterocolitis/leukocytosis/thrombocytopenia AP CT showed pancolonic wall thickening, along with distal small bowel wall thickening, consistent with infectious/inflammatory enterocolitis stool cultures positive for Campylobacter recommended to start Azithromycin 500 mg PO x 3 days or until symptoms improved with age and high fever isolation precautions IVF resuscitation as above clear liquid diet - hold PO meds leukocytosis - WBC 11.77 with neutrophil predominance, not septic on admission thrombocytopenia - platlet count 120, trend cbc - can consider peripheral smear if consistently low Pro-Emmanuel 0.71, CXR negative elevated lipase - 188, trend with AM labs, CT shows unremarkable pancreas #fever temp as high as 39.5C in ED started on scheduled IV Tylenol Q8H recheck temp Q2H #elevated troponin suspect 2/2 to demand with acute infection and a fib no baseline recorded 30.4 -> 29.8 denies CP EKG show a fib, no ischemic changes trend trop overnight monitor on tele #a fib chronically in A-fib Mg and K+ optimized as above On Eliquis, diltiazem, metoprolol at home; held with enterocolitis above Anticoagulation with heparin If persistently tachycardic, can consider IV metoprolol vs diltiazem #inguinal hernia patient with LLQ pain for multiple weeks; nontender to palpation on admitting exam CT showed left inguinal hernia with small knuckle of sigmoid colon; without evidence of incarceration or bowel obstruction Can follow-up with PCP and consider surgery consult referral in out patient setting Chronic stable diagnoses: cataracts - continue eye drops HLD - holding statin VTE ppx: will switch Eliquis to Heparin Diet: clears Dispo: PCU with potential to require IV metoprolol vs dilt Admission and Anticipated Discharge Date Admission Date: 12/09/24 History of Present Illness Chief Complaint: flu like sx Primary Care Provider: Agustin Majano MD Patient is an 84-year-old male with a past medical history of A-fib on Eliquis, hypertension, hyperlipidemia, cataracts. He presents today due to flulike symptoms for approximately 3 days. He is being admitted due to a fever for 39.5C, TJ, and elevated troponin. Patient seen at bedside with his son present. He stated that for the past 3 days he has had fever, chills, headache, nausea, diarrhea, and weakness. He typically never gets headaches. He has recorded temperatures of 100-101 F over the past few days. He also endorses nausea for 2/3 of the days; denies vomiting. He also endorses left lower quadrant pain but stated that it has been for multiple weeks and he denies pain today. Regarding the weakness, he stated he had trouble getting out of bed last night. He does endorse dizziness but thinks that his difficulty ambulating is more so due to weakness with acute infection. He stated that he took 3 Imodium today to help with the diarrhea. He feels as though he does not drink enough fluids. He also stated he has still been trying to eat for the past few days but has a decreased appetite. Denies sick contacts. he denies cough, sore throat, shortness of breath, chest pain, dysuria, blood in stool, melena. He does not use nicotine products. He drinks 1 glass of wine daily. He lives at home with his . He denies past history of DM or previous VTE. He does not use oxygen, CPAP/BiPAP at baseline. He has still been taking his home m edications with acute illness, took this morning but is due for evening doses. Discussed IV dosing due to acute infection. Patient agreeable. He wishes to be full code at this time. 2300 - patient reassessed at bedside on the floor. Updated about positive Campylobacter results. Patient does remember about a week ago he ate chicken livers that may have been a little pink. Him and his about these for the dog but figured that they would try it. He denies any other concerning p.o. intake. Patient is hopeful to DC in a.m., discussed TJ and needing improvement of renal function prior to discharge. Allergies Allergy/AdvReac Type Severity Reaction Status Date / Time tetanus toxoid, adsorbed Allergy Unknown HIVES Verified 02/13/24 08:02 Home Medications Medication Instructions Recorded Confirmed Type apixaban 5 mg tablet (Eliquis) 5 mg PO BID 01/31/19 12/09/24 History metoprolol succinate 25 mg 25 mg PO BID 01/31/19 12/09/24 History tablet,extended release 24 hr multivitamin 1 tab PO QAM 01/31/19 12/09/24 History lutein 20 mg capsule 20 mg PO QAM 02/14/19 12/09/24 History diltiazem HCl 120 mg 120 mg PO QAM 02/27/19 12/09/24 History capsule,extended release 24 hr, controlled atorvastatin 10 mg tablet 10 mg PO QPM 01/15/24 12/09/24 History cholecalciferol (vitamin D3) 25 25 mcg PO QAM 01/15/24 12/09/24 History mcg (1,000 unit) tablet (Vitamin D3) omega 0-vux-lzy-fish oil 60 mg-90 1 cap PO QAM 01/15/24 12/09/24 History mg-500 mg capsule (Fish Oil) brimonidine 0.2 %-timolol 0.5 % 1 drp OPB BID 02/07/24 12/09/24 History eye drops (Combigan) azelastine 137 mcg (0.1 %) nasal 1 spray intranasal [facility] 12/09/24 12/09/24 History spray cranberry 500 mg capsule 1,000 mg PO BID 12/09/24 12/09/24 History Past Med/Surg History Problem List (Updated 12/09/24 @ 22:43 by Mamta Hernandez PA-C) Campylobacter enteritis TJ (acute kidney injury) (Acute) Hyponatremia Hypomagnesemia Inguinal hernia Thrombocytopenia Leukocytosis Elevated troponin Fever Enterocolitis Acute kidney injury Small bowel obstruction (Acute) Ganglion of right wrist Trigger finger, right ring finger Left knee pain Left knee DJD Encounter for pre-operative examination Inhalation injury (Acute) Hypertension Atrial fibrillation DX 01/2019; S/P CARDIOVERSION x 2 in 03/2019 within a week, 2nd one successful x 4 days. on sakina douglas with Dr. Guallpa at [facility] Hypertension Hyperlipidemia Medical History SBO (small bowel obstruction) admitted to [facility] on 02/06/24 > resolved on own with NPO/fluids History of cardioversion remote hx Diverticular disease Hyperlipidemia Hypertension Atrial fibrillation DX 01/2019; S/P CARDIOVERSION x 2 in 03/2019 within a week, 2nd one successful x 4 days. on sakina douglas with Dr. Guallpa at [facility] Surgical History History of cataract surgery right > fragment remains, reason for up coming eye surgery Hx of hand surgery (~08/2023) x 2, trigger finger Bilateral Status post wrist surgery rt History of shoulder surgery lt History of inguinal hernia repair rt History of carpal tunnel surgery of right wrist History of esophagogastroduodenoscopy (EGD) History of colonoscopy Family History Mother No problems noted. Father Congestive heart failure (CHF) Aortic valve disease, rheumatic Son , AGE 47 S/T AR Myocardial infarction Social History Smoking Status: Former smoker Tobacco Type: Cigarettes Cigarettes Per Day: 1/2 to 1 PPD; Second Hand Exposure: No; Do You Dip or Chew Tobacco: No; Hx Alcohol Use: Yes Alcohol type: wine Hx Substance Use: No Preferred Language: Gabonese Communication Ability: Effective Cloth Bolt Bander Required: No Beliefs That Will Affect Care: None Current Living Situation: Spouse Current Living Situation Comment: home with Feels Safe at Home: Yes Safety Concerns: Feels Safe At This Time Assistive Devices: Glasses and Hearing Aid - Bilateral Review of Systems Review of Systems: see HPI Physical Exam Physical Exam: The patient is awake, alert and oriented 3, well developed and well nourished, normocephalic and atraumatic, in no acute distress. Non-toxic appearing. HEENT- EOMI, mucous membranes dry. Hearing grossly intact. Heart- irregular irregular rhythm. normal S1 and S2. No murmurs, rubs or gallops. Lungs-clear bilaterally, no respiratory distress, no accessory muscle use. Abdomen-normal bowel sounds and soft. No ascites noted. Non-tender. Extremities- no clubbing, cyanosis, or edema. Rheumatologic-normal range of motion. Psychiatric-normal affect. Results & Data Results & Data Vital Signs (Past 12 Hours) Vital Signs Temp Pulse Pulse Resp BP Pulse Ox O2 Del Method 12/09/24 19:58 39.5 C H 87 30 H 12/09/24 18:48 117 H 12/09/24 18:31 Room Air 12/09/24 18:11 36.6 C 87 18 149/84 H 99 Laboratory Results Reviewed CBC, PT/INR, CMP, Pro-Emmanuel, bio fire, UA, lactate, mag Diagnostic Findings reviewed CXR and AP CT Medications Administered Ed: 2L NSS and IV acetaminophen ECG Additional Comments: a fib, rate 88 Code Status & VTE Plan Code Status full code VTE Prophylaxis Plan VTE Prophylaxis will be ordered: Yes Supervising Physician Co-Signing Physician Notes Attending addendum: I have physically seen this patient, have supervised the JERRY's activities, and agree with the H&P unless as otherwise noted. Assessment and Plan: The patient is an 84-year-old male with a past medical history including A-fib on Eliquis, hypertension, hyperlipidemia, cataracts, and glaucoma. He presents to the emergency department with 3 days of flulike symptoms, and loose stools. Evaluation in the emergency department included a normal respiratory BioFire test. However, stool PCR was positive for Campylobacter jejuni. #Campylobacter jejuni enterocolitis- CT scan of abdomen and pelvis shows pancolonic wall thickening, along with distal small bowel wall thickening consistent with infectious/inflammatory enterocolitis. Stool PCR positive for Campylobacter is noted Isolation precautions as noted Azithromycin 500 mg daily for 3 days Clear liquid diet, to advance as tolerated Likely cause of electrolyte disturbances and acute kidney injury due to volume loss #Acute kidney injury/hypomagnesia/borderline hypokalemia- Creatinine 1.98, with base 1.19 Status post NSS with 2 L bolus while in the ED Continue IV fluids as noted Magnesium sulfate 2 g IV Potassium chloride 10 mill equivalent IV rider x 1 Recheck laboratories in the a.m. #Elevated troponin/hypertension- Troponin 30.4 with follow-up 29.8 Likely type II supply/demand mismatch EKG with rate controlled atrial fibrillation Temporarily holding Eliquis, diltiazem and metoprolol due to severity of enterocolitis as above Lopressor 2.5 mg IV every 4 hours, hold for heart rate less than 60 or systolic blood pressure less than 120 Can resume anticoagulation as heparin infusion or Lovenox therapeutic in the a.m. if no signs of bleeding from enterocolitis overnight Chronic medical issues Glaucoma-Continue usual eyedrops Hyperlipidemia-temporarily holding atorvastatin PG Care Time/CCT Total # of Minutes Spent Total Time Spent with Patient: Total time spent is greater than 50% in coordination of care (as documented) at patient's floor/unit and/or counseling patient: Coding Level of Care Code 70995 INT INP/OBS CARE 375MIN Diagnoses Acute kidney injury N17.9 Hypomagnesemia E83.42 Hyponatremia E87.1 Campylobacter enteritis A04.5 Leukocytosis D72.829 Thrombocytopenia D69.6 Fever R50.9 Elevated troponin R79.89 Atrial fibrillation I48.91 Inguinal hernia K40.90
--- NOTE | 2024-12-09 20:48 | XRay Report ---
Exam(s): XR CXR 1 VIEW EXAM: XR Chest, 1 View CLINICAL HISTORY: Reason for exam: fever. TECHNIQUE: Frontal view of the chest. COMPARISON: 01/16/18 FINDINGS: Lungs: Unremarkable. No consolidation. Pleural space: Unremarkable. No pleural effusion or pneumothorax. Heart: Cardiomegaly. Bones/joints: No acute fracture. No dislocation. IMPRESSION: Cardiomegaly. Lungs appear clear. Electronically signed by: Doe De La Cruz M.D. 12/09/24 20:47 PM
[2024-12-09 21:15] LABS: Magnesium 1.5 mg/dl (1.7-2.4)
[2024-12-09 21:22] LABS: Troponin I High Sensitivity 29.8 pg/ml (0-20)
[2024-12-09] MEDS: POTASSIUM CHLORIDE / WTR 10 MEQ/100 ML PLCT IV SCH (21:40)
[2024-12-09] MEDS: MAGNESIUM SULFATE / D5W 1 GM/100 ML BAG IV SCH (21:40)
[2024-12-09] MEDS: SODIUM CHLORIDE 0.9% 1,000 ML IV SCH (21:40)
[2024-12-09 22:16] LABS: Adenovirus F 40/41 PCR Not Detected (NotDetected); Astrovirus PCR Not Detected (NotDetected); Cryptosporidium PCR Not Detected (NotDetected); Cyclospora cayetanensis PCR Not Detected (NotDetected); Entamoeba histolytica PCR Not Detected (NotDetected); Enteroaggregative E.coli(EAEC) Not Detected (NotDetected); Enteropathogenic E.coli (EPEC) Not Detected (NotDetected); Enterotoxigenic E.coli (ETEC) Not Detected (NotDetected); Giardia lamblia PCR Not Detected (NotDetected); Norovirus GI/GII PCR Not Detected (NotDetected); Plesiomonas shigelloides PCR Not Detected (NotDetected); Rotavirus A PCR Not Detected (NotDetected); Salmonella PCR Not Detected (NotDetected); Sapovirus PCR Not Detected (NotDetected); Shiga-like Toxin E.coli (STEC) Not Detected (NotDetected); Shigella/Enteroinvasive E.coli Not Detected (NotDetected); Vibrio cholerae PCR Not Detected (NotDetected); Vibrio species PCR Not Detected (NotDetected); Yersinia enterocolitica PCR Not Detected (NotDetected)
[2024-12-09 22:25] LABS: Campylobacter PCR DETECTED (NotDetected)
[2024-12-09] MEDS: AZITHROMYCIN 250 MG TAB PO ONE (23:46)
[2024-12-09] MEDS: HEPARIN SOD 5,000 UNIT/0.5 ML VIAL SQ SCH (23:46)
--- OUTSIDE RECORDS SUMMARY | 2024-12-10 03:11 | External Medical Summary | Continuity of Care Document ---
Author Name Unknown Organization [address] Address [address] [place], [place] [id number] Care Team Providers Care Store Receiving Clerk Name Role Phone Agustin Majano Primary Care Physician [phone] [facility]counter [facility] [id number] Date(s): 12/03/24 - 12/03/[address] [address] [phone] Encounter Diagnosis AF (atrial fibrillation)(Discharge Diagnosis) - 12/03/24 BENIGN ESSENTIAL HYPERTENSION(Discharge Diagnosis) - 12/03/24 Hyperlipidemia(Discharge Diagnosis) - 12/03/24 Impaired fasting glucose(Discharge Diagnosis) - 12/03/24 Melanoma in situ of left upper arm(Discharge Diagnosis) - 12/03/24 Body mass index [BMI] 22.0-22.9, adult(Discharge Diagnosis) - 12/03/24 Discharge Disposition: Home or Self Care Attending Physician: MD Majano Juan Referring Physician: MD Majano Juan Allergies, Adverse Reactions, Alerts Substance Criticality Severity Reaction Reaction Severity Status lisinopril Cough Active tetanus toxoid swelling Activ e Benicar Cough Active Assessment and Plan Extracted from: Title:Office Visit Note Author:MD Majano Juan Darrell e:12/03/24 1.AF (atrial fibrillation) Status: chronic, controlled. Data: EMR. Goal: controlled and stable. Plan: continue current treatment plan. 2.BENIGN ESSENTIAL HYPERTENSION Status: chronic, controlled. Data: EMR. Goal: controlled and stable. Plan: continue current treatment plan. 3.Hyperlipidemia Status: chronic, controlled. Data: EMR. Goal: controlled and stable. Plan: continue current treatment plan. 4.Impaired fasting glucose Status: chronic, controlled. Data: EMR. Goal: controlled and stable. Plan: continue current treatment plan. 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 BTO for awv Immunizations Given and Recorded Vaccine Date Status Refusal Reason pneumococcal 13-valent vaccine 09/30/20 Recorded influenza virus vaccine, inactivated 07/13/14 Miguel rded influenza virus vaccine, inactivated 08/12/13 Miguel rded pneumococcal 23-valent vaccine 02/21/07 Recorded Medications atorvastatin 10 mg oral tablet Start: 07/04/19 1:59:00 PM EDT, 1 tab, PO, Daily Start Date: 07/04/19 Status: Ordered clobetasol 0.05% topical cream Start: 04/05/22 12:31:00 PM EDT, 1 appl, topical, bid, Disp# 60 g, Refills: 3, apply to trunk and extremities for dermatitis, Pharmacy: [id number] Start Date: 04/05/22 Status: Ordered cranberry Start: 07/20/10 9:03:19 AM EDT, See Instructions, PO, Refills: 0, 1 cap daily No Dosage Noted, current medication from another provider Start Date: 07/20/10 Status: Ordered DilTIAZem Hydrochloride ER 120 mg/24 hours oral capsule, extended release Start: 07/04/19 1:58:00 PM EDT, 1 tab daily Start Date: 07/04/19 Status: Ordered Eliquis 5 mg oral tablet Start: 07/18/19 10:57:00 AM EDT, 1 tab, PO, bid Start Date: 07/18/19 Status: Ordered Fish Oil Start: 07/20/10 9:04:25 AM EDT, 1,000 mg =, PO, Daily, Refills: 0, current medication from another provider Start Date: 07/20/10 Status: Ordered lutein Start: 07/20/10 9:03:50 AM EDT, 1 tab, PO, Daily, Refills: 0, current medication from another provider Start Date: 07/20/10 Status: Ordered Metoprolol Succinate ER 25 mg oral tablet, extended release Start: 10/11/23 11:45:00 AM EST, 1 tab, PO, Daily, at HS. Rx'ed by Dr. Jackson Start Date: 10/11/23 Status: Ordered multivitamin Start: 07/20/10 9:02:59 AM EDT, 1 tab, Daily, Refills: 0, No Dosage Noted, current medication from another provider Start Date: 07/20/10 Status: Ordered Vitamin D3 1000 intl units oral capsule Start: 11/20/12 9:06:00 AM EST, 1 cap, PO, Daily Start Date: 11/20/12 Status: Ordered Mental Status 12/03/24 Barriers to Learning one year None evide nt Mandatory Health Literacy Documentation Yes Health Literacy Communication Barriers N ever Primary Language Bruneian Problem List Condition Confirmation Course Effective Dates Status H ealth Status Informant ARTHRITIS Confirmed 06/22/11 Active AF (atrial fibrillation) 1 Confirmed 01/14/19 Active BENIGN ESSENTIAL HYPERTENSION Confirmed 06/11/10 Active Changing skin lesion Confirmed Active Colonoscopy 2, 3 Confirmed Active Diverticulosis of sigmoid colon Confirmed 08/04/15 Active DN - Dysplastic nevus Confirmed Active Hearing loss Confirmed Active Hyperlipidemia Confirmed Active Impaired fasting glucose Confirmed 06/11/10 Active Toxic effect of insecticide Confirmed 06/09/16 Active Enlarged prostate Confirmed Active 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 Discharge Diagnosis 12/03/24 Non-Specified BENIGN ESSENTIAL HYPERTENSION Discharge Diagnosis 12/03/24 Non-Specified Hyperlipidemia Discharge Diagnosis 12/03/24 Non-Specified Impaired fasting glucose Discharge Diagnosis 12/03/24 Non-Specified Body mass index [BMI] 22.0-22.9, adult Discharge Diagnosis 12/03/24 Non-Specified Procedures Procedure Date Related Diagnosis Body Site Status Shave biopsy 1 11/20/24 Completed Excision 07/24/24 Completed Shave biopsy of skin 2 06/18/24 Co mpleted Surgery 3 09/2023 Completed Procedure 4 08/15/[address] of abdomen and pelvis 5 01/16/18 Completed CXR - Chest X-ray 6 01/16/18 Compl eted CXR - Chest X-ray 7 08/31/16 Compl eted CXR - Chest X-ray 8 08/31/16 Compl eted CXR - Chest X-ray 9 06/05/16 Compl eted Colonoscopy 10 08/04/15 Completed Colonoscopy 2002 Completed Cataract Completed Hernia repair 11 Complete d Imaging,chest Completed Right Hand Trigger Finger Surgery Completed Right Knee Surgery 12 Com pleted Shoulder Surgery Complete d Ultrasound scan of abdominal aorta 13 Completed Wrist Surgery 14 Complete d 1left cheek 21. left ear lobe 2. left forearm 3trigger finger surgery 4right hand carpal tunnel and trigger finger 5No significant abnormality identified within the abdomen or pelvis. 6No active disease in the chest. 7No significant change compared to the prior study. No acute process. 8No significant change compared to the prior study. No acute process. 9No acute cardiopulmonary findings. 10The examined portion of the ileum was normal. Diverticulosis in the sigmoid colon No specimens collected. Repeat in 10 years. 11Left 12and left knee 132/2016: no AAA. normal. 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 He states no new concerns or problems at this time. History of Present Illness feels good, no c/o. No SE from meds. sees derm forDx 'ed melanoma in left forearm this past year.sees derm regularly. regular exercise. healthy eating. sees Dr. Wallsfor AF. 30 Day Labs Last Updated 12/03/24 09:00 12/03/24 0830 Estimated CrCl50.57 12/03/24 0753 Chol/HDL2 Ictb353 HDL62 LDL Chol, Krxpdtmwgs94 TG50 Non-HDL79 Anion Gap0L BUN29H Ca9.2 Cl-107 GAT261E Cret1.08 Brh206 K4.6 Na139 eGFR CKD-EPI69 TSH2.06 Alk Phos61 ALT41 AST31 T Bili1.2 Alb4.1 Prot6.9 Bili (u)NEGATIVE KetonesNEGATIVE Leuk EstNEGATIVE Nitrite (u)NEGATIVE Appear (u)CLEAR Color (u)YELLOW Glu (u)NEGATIVE Hgb (u)NEGATIVE pH (u)7.0 Prot (u)NEGATIVE Urobili0.2 SG1.015 Physical Exam Vitals & Measurements HR:82(Monitored) RR:20 BP:138/82 SpO2:98% HT:175.1cm WT:70.5kg WT:70.500kg(Dosing) BMI:22.99 PHQ2 Data(Data Documented on:12/03/2024 13:27) Emotional health assessment NEGATIVE GENERAL: A&Ox3. No acute distress. Affect and speech appropriate. HEENT: PERRLA, EOMI, Conjunctivae clear. NECK: Supple, No lymphadenopathy. No carotid bruits. HEART:irreg irreg, normal S1, S2. No murmurs, gallops or clicks. LUNGS: breathing not labored, breathing sound clear, breathing sound equal bilaterally, no rales, no wheezing. ABDOMEN: Positive bowel sound, soft, nontender, non-distended. No hepatosplenomegaly noted. No mass. EXTREMITIES: No edema, clubbing or cyanosis. Assessment/Plan 1.AF (atrial fibrillation) Status: chronic, controlled. Data: EMR. Goal: controlled and stable. Plan: continue current treatment plan. 2.BENIGN ESSENTIAL HYPERTENSION Status: chronic, controlled. Data: EMR. Goal: controlled and stable. Plan: continue current treatment plan. 3.Hyperlipidemia Status: chronic, controlled. Data: EMR. Goal: controlled and stable. Plan: continue current treatment plan. 4.Impaired fasting glucose Status: chronic, controlled. Data: EMR. Goal: controlled and stable. Plan: continue current treatment plan. 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 Seborrheic keratoses SK (seborrheic keratosis) Toxic effect of insecticide Trigger finger Procedure/Surgical History Shave biopsy| Service Date: 11/20/2024Excision| Service Date: 07/24/2024Shave biopsy of skin| Service Date: 06/18/2024Surgery| Service Date: rocedure| Service Date: 08/15/2018CT of abdomen and pelvis| Service Date: 01/16/2018CXR - Chest X-ray| Service Date: 01/16/2018CXR - Chest X-ray| Service Date: 08/31/2016CXR - Chest X-ray| Service Date: 08/31/2016CXR - Chest X-ray| Service Date: 06/05/2016Colonoscopy| Service Date: 08/04/2015Colonoscopy| Service Date: 2002Shoulder SurgeryWrist SurgeryHernia repairRight Knee SurgeryRight Hand Trigger Finger SurgeryImaging,chestUltrasound scan of abdominal aortaCataract Medications apixaban(Eliquis 5 mg oral tablet), 5 mg= 1 tab, PO, bid atorvastatin(atorvastatin 10 mg oral tablet), 10 mg= 1 tab, PO, Daily cholecalciferol(Vitamin D3 1000 intl units oral capsule), 1000 Int_Unit= 1 cap, PO, Daily clobetasol topical(clobetasol 0.05% topical cream), 1 appl, topical, bid, 3 refills cranberry, See Instructions, PO dilTIAZem(DilTIAZem Hydrochloride ER 120 mg/24 hours oral capsule, extended release) lutein, 1 tab, PO, Daily metoprolol(Metoprolol Succinate ER 25 mg oral tablet, extended release), 25 mg= 1 tab, PO, Daily multivitamin, 1 tab, Daily omega-3 polyunsaturated fatty acids(Fish Oil), 1000 mg, PO, Daily Allergies BenicarCough lisinoprilCough tetanus toxoidswelling Social History Smoking Status Never smoked cigarettes Alcohol - Low Risk - Comments: 1 glass wine a day Exercise - Regular exercise Exercise type:Walking Home/Environment Lives with:Spouse Living situation:Home/Independent Family/Friends available to help:Yes Tobacco - Denies Tobacco Use Use:Former smoker - Comments: quited 60 years ago smoked for 9 years 1ppd in past Family History Alzheimer disease: Mother. CHF (congestive heart failure): Father. Cancer of ovary: Sister. Cardiovascular disease: Father. Health Status Family Member(s) Immunizations Vaccine Date Status pneumococcal 13-valent vaccine 09/30/2020 Recorded influenza virus vaccine, inactivated 07/2014 Recorded influenza virus vaccine, inactivated 08/2013 Recorded pneumococcal 23-valent vaccine 02/21/2007 Recorded Recommendations Health Maintenance Pending(in the next year) OverDue Medicare Annual Wellness Visit due03/02/23and every 1year Adult Influenza Vaccine due05/12/24and every 1year Due Adult COVID-19 Vaccination due12/03/24Unknown Frequency Adult Social Determinants of Health Screening due12/03/24Unknown Frequency Shingles Vaccine due12/03/24One-time only Satisfied(in the past 1 year) Satisfied Body Mass Index on12/03/24.Satisfied by MANDY Pennington Deiadra Lipid Screening on12/03/24.Satisfied by Contributor_system, [employer] Electronic Signature on File Electronically Reviewed/Signed by: Agustin Majano MD Author Signature Dt/Tm:12/03/2024 02:09 PM Department of Family Medicine [facility] Patient Care team information Care Team Personnel Name: MD Majano Juan Position: Physician - Family Med Member Role: Primary Care Provider Address: [address] [place] [id number] [place] Care Team Related Persons Name: RAMSES HALL"
--- OUTSIDE RECORDS SUMMARY | 2024-12-10 03:11 | External Medical Summary | Summary of Care ---
Author Name Unknown Organization [facility] Address [address] [place] [address] Phone [phone] Care Team Providers Care Sheet Heater Helper Name Role Phone Agustin Majano MD Primary Care Provider [phone] Encounter Details Date Type Department Care Team (Late st Contact Info) Description 09/02/2024 10:00 AM EDT Telemedicine Otolaryngology [facility] [address] [place] [address] Ivana Amaya MD [address] [place] [address] Post-nasal drip* Allergies Active Allergy Reactions Criticality Noted Date Comments Olmesartan Cough 01/29/2019 Tetanus Antitoxin Hives High 01/29/2019 documented as of this encounter (statuses as of 09/02/2024) Medications Medication Sig Dispensed Refills Start Date End Date Status Cholecalciferol (VITAMIN D3) 1000 units CAPS Take by mouth 3 times a day. Active Cranberry 1000 MG Capsule Take 1,000 mg by mouth 2 times a day. Active Lutein 20 MG Capsule Take 1 Capsule by mouth in the morning. Active Multiple Vitamins-Minerals (MULTIVITAMIN ADULT) TABS Take by mouth. Active omega-3 1000 MG CAPS Take by mouth. Active Metoprolol Succinate ER 25 MG Oral Tablet Extended Release 24 Hour (toPROL XL) Take 1 Tablet by mouth in the morning. 200 Tablet 3 08/13/2023 Active Metoprolol Tartrate 25 MG Oral Tablet (Lopressor) Take 1 Tablet by mouth in the morning and 1 Tablet before bedtime. 180 Tablet 3 08/27/2023 Active Apixaban 5 MG Oral Tablet (Eliquis)Indication s:Longstanding persistent atrial fibrillation (HCC) Take 1 Tablet by mouth in the morning and 1 Tablet before bedtime. 200 Tablet 3 11/28/2023 Active Atorvastatin Calcium 10 MG Oral Tablet (Lipitor)Indication s:Dyslipidemia, goal LDL below 100 Take 1 Tablet by mouth in the morning. 100 Tablet 3 11/28/2023 Active dilTIAZem HCl ER Beads 120 MG Oral Capsule Extended Release 24 HourIndications:Darrius gstanding persistent atrial fibrillation (HCC) Take 1 Capsule by mouth in the morning. 100 Capsule 3 11/28/2023 Active Metoprolol Succinate ER 25 MG Oral Tablet Extended Release 24 Hour (toPROL XL)Indications:Long standing persistent atrial fibrillation (HCC) Take 1 Tablet by mouth in the morning and 1 Tablet before bedtime. 200 Tablet 3 11/28/2023 Active Azelastine HCl 0.1 % Nasal Solution (Astelin) Administer 1 [place] into nostril in the morning and 1 [place] before bedtime. 30 mL 12 06/06/2024 Active documented as of this encounter (statuses as of 09/02/2024) Active Problems Problem Noted Date Diagnosed Date Prediabetes 07/23/2023 Overview: Per Prediabetes protocol Dyslipidemia, goal LDL below 100 09/17/2019 Essential hypertension with goal blood pressure less than 130/80 09/17/2019 Longstanding persistent atrial fibrillation 07/14 documented as of this encounter (statuses as of 09/02/2024) Immunizations Name Administration Dates Next Due COVID-19 mRNA, LNP-s, No Pre serve, 2-Dose Series (Moderna) 02/27/2022,01/15/2021,12/11/2020 Pneumococcal Conjugate Vacc, 13 Valent (Prevnar) 09/30/2020 Pneumococcal Polysaccharide PPV23 (Pneumovax) 02/21/2007 Seasonal Influenza Virus Vac cine, Unspecified Formulation 07/13/2014,08/12/2013 documented as of this encounter Social History Tobacco Use Types Packs/Day Years Used Date Smoking Tobacco: Never Smokeless Tobacco: Never Alcohol Use Standard Drinks/Week Comments Yes 7 (1 standard drink = 0.6 oz pur e alcohol) 1 glass of wine daily Utilities Answer Date Recorded Do you have trouble paying y our heating, water, or electric bill? (Adult - for ages 18 years and over) Not on file 04/29/2024 Is your family able to pay t he heat, water, or electric bill? (Household - for ages 0-17 years) Not on file 04/29/2024 Does your family have access to good internet? (Household - for ages 0-17 years) Not on file 04/29/2024 Social Connections Answer Date Recorded How often do you feel lonely or isolated from those around you? (Adult - for ages 18 years and over) Not on file 04/29/2024 Sex and Gender Information Value Date Recorded Sex Assigned at Not on file Gender Identity Not on file Sexual Orientation Not on file Job Start Date Occupation Industry Not on file Not on file Not on file documented as of this encounter Progress Notes * Ivana Amaya MD - 09/02/2024 10:00 AM EDT 09/02/2024 HISTORY OF PRESENT ILLNESS This 84 year old year old male is seen today for the initial complaint of dysphonia. The provider requesting consultation is Agustin Majano MD. Patient location: HOME. I was in a hospital or clinic location. After connecting through televideo,patient was verified with two unique identifiers. Patient (or authorized legal career services representative) was then informed that this was a Telemedicine visit and being conducted confidentially over secure lines. Methods to assure confidentiality were taken. Patient acknowledged consent and understanding of pr ivacy and security of the Telemedicine visit. The patient agreed to participate. Problem List Patient Active Problem List Diagnosis Longstanding persistent atrial fibrillation Dyslipidemia, goal LDL below 100 Essential hypertension with goal blood pressure less than 130/80 Prediabetes No past medical history on file. No past surgical history on file. Medications Current Outpatient Medications Medication Sig Dispense Refill Cholecalciferol (VITAMIN D3) 1000 units CAPS Take by mouth 3 times a day. Cranberry 1000 MG Capsule Take 1,000 mg by mouth 2 times a day. Lutein 20 MG Capsule Take 1 Capsule by mouth in the morning. Multiple Vitamins-Minerals (MULTIVITAMIN ADULT) TABS Take by mouth. omega-3 1000 MG CAPS Take by mouth. Metoprolol Succinate ER 25 MG Oral Tablet Extended Release 24 Hour (toPROL XL) Take 1 Tablet by mouth in the morning. 200 Tablet 3 Metoprolol Tartrate 25 MG Oral Tablet (Lopressor) Take 1 Tablet by mouth in the morning and 1 Tablet before bedtime. 180 Tablet 3 Apixaban 5 MG Oral Tablet (Eliquis) Take 1 Tablet by mouth in the morning and 1 Tablet before bedtime. 200 Tablet 3 Atorvastatin Calcium 10 MG Oral Tablet (Lipitor) Take 1 Tablet by mouth in the morning. 100 Tablet 3 dilTIAZem HCl ER Beads 120 MG Oral Capsule Extended Release 24 Hour Take 1 Capsule by mouth in the morning. 100 Capsule 3 Metoprolol Succinate ER 25 MG Oral Tablet Extended Release 24 Hour (toPROL XL) Take 1 Tablet by mouth in the morning and 1 Tablet before bedtime. 200 Tablet 3 Azelastine HCl 0.1 % Nasal Solution (Astelin) Administer 1 [place] into nostril in the morning and 1 [place] before bedtime. 30 mL 12 No current facility-administered medications for this visit. Allergies Review of patient's allergies indicates: Allergen Reactions Tetanus Antitoxin Hives Benicar [Olmesartan] Cough Family History No family history on file. Social History Social History Tobacco Use Smoking status: Never Smokeless tobacco: Never Substance Use Topics Alcohol use: Yes Alcohol/week: 7.0 standard drinks of alcohol Types: 7 5 oz of wine per week Comment: 1 glass of wine daily Vaping/E-Cigarette Use Vaping/E-Cigarette Substances Vaping/E-Cigarette Devices Occupational History Work: Review of Systems Negative for constitutional, eyes, cardiac, pulmonary, hepatic, renal, digestive, hematologic, epileptic, syncopal, musculo-skeletal, mental health, integumentary, hypertensive, lipid, arthritic, diabetic, thyroid or neurologic disorders (except as listed in the PMH and Problem List). Physical Examination: There were no vitals taken for this visit. PHYSICAL EXAM General: This is a healthy appearing male who appears his stated age. The patient is alert and appropriately verbally conversant without hoarseness. Face: The face was inspected and no cutaneous masses or lesions were visualized. There was no erythema or edema noted. Facial movement was symmetric without weakness. No skin lesions were detected. The parotid and submandibular glands were normal to palpation. Eyes: Extra-ocular muscle function was intact. No nystagmus was observed. Pupils were equal. Cranial Nerves: Grossly intact Nose: Examination of the nose prior to decongestion revealed no masses, polyps, mucopus, or other lesion. The nasal septum was non-obstructing. The turbinates were without abnormality. No septal perforation. Oral Cavity: Examination of the oral cavity revealed no mass lesions nor infection. The palate was noted to be intact without evidence of clefting. The tongue exhibited normal mobility. Mucosa was moist without lesion. The lips were free of lesion. Gums were free of inflammation. Dentition: Unremarkable Oropharynx: The oral pharynx was free of mass lesion or mucosal abnormality. The palate was noted to be without lesion. The uvula was normal appearing. The tonsils were unremarkable. Hypopharynx: flexible fiberoptic examination of the hypopharynx revealed normal mucosa. The tongue base was normal. There was no abnormal lymphoid tissue. There were no mass lesions. Larynx: flexible fiberoptic examination of the larynx revealed no mass lesions. Vocal cord mobilitywas normal without paralysis or paresis. No vocal cord masses were visualized. The pyriform sinuseswere free of mass lesion and significant pooling. The mucosa was normal appearing. Ears: Examination of the ears revealed that the auricles were normally formed with no lesions. The external auditory canals were cleaned of any obstructing cerumen. The tympanic membranes were intact. There are no significant retraction pockets. There is no inflammation visualized. No effusions areseen. Neck: Visualization and palpation of the neck revealed no mass lesions, no thyromegaly or thyroid masses. No skin lesions or inflammatory processes were detected. The cervical musculature was normal to palpation. Lymphatics (cervical): There were no palpable lymph nodes in the posterior triangle, submandibular triangle, jugulodigastric region, or central neck. Lungs: Breathing quietly. No use of accessory muscles. Heart: Regular rate. No JVD. Procedure: Due to patient's inability to cooperate with mirror exam or concern for structures otherwise not evaluated, fiberoptic examination of the larynx was performed. The nose was first topically decongested with topical oxymetazoline 0.05% spray and topically anesthetized with topical Lidocaine 4% spray. Nasopharynx, oropharynx, larynx and hypopharynx were carefully examined. Vocal fold motion was evaluated. The patient tolerated the procedure well. Patient should refrain from eating or drinking for 30-45 minutes due to anesthesia of the pharynx and possible interference with swallowing. Specific findings: Nasal mucosa is mildly inflammed bilaterally. Septal deviaiton to the left. Clear drainage seen bilaterally. Vocal cords are mobile but some erythema of the posterior arytenoids. Plan: Post-nasal drip (Primary) Strobe is scheduled for October 14, the patient would like to cancel as his symptoms have improved. He knows to call if he has any issues in the future. Last visit: Will schedule a stroboscopy for him as well as a 12 week phone visit to see if the Nasacort in combination with the Astelin is helping. He feels like the Nasacort is already helping. Can consider reflux meds in the future Recommended nasal saline rinses twice daily. Use distilled water. Perform saline rinse in the shower leaning over so your nose is below your mouth. With gentle pressure use half of this saline rinse in each nostril. Following the saline rinse, instructed the patient to use a nasal steroid spray taking care to NOT spray towards the septum, but to spray out towards the ipsilateral ear. Emphasized that this regimen needs to be repeated twice a day, everyday for 6 weeks to reach maximum effect. This is not a PRN medication. Extensive time was spent discussing the above diagnosis, management and treatment. I reviewed all outside documentation, labs, and imaging. I spent a total of 20-29 minutes (exact time 21 mins) on the date of service in preparation, delivery, and documentation of the care provided to Cristian Skinner excluding any time spent in the performance of separately billed services or time spent by another provider/QHP. Ivana Amaya MD [facility] Otolaryngology - Head and Neck Surgery [place], [place] [address] documented in this encounter Plan of Treatment Upcoming Encounters Date Type Department Care Team (Late st Contact Info) Description 10/14/2024 1:00 PM EST Office Visit Otolaryngology [facility] [address] [place] [address] Ivana Amaya MD [address] [place] [address] 10/14/2024 1:00 PM EST Rehab Services Voice Lab [facility] [address] [place] [address] Drew Santacruz [facility] [address] [place] [address] Health Maintenance Due Date Last Done Comments Depression Screening 1954 Albumin/Creatinine Ratio 02/16/1960 DTap/Tdap Vaccines (1 - Tdap) 1961 Zoster Vaccines (1 of 2) 02/16/1992 GFR 03/04/2022 03/04/2021 HbA1c 03/04/2022 03/04/2021 COVID-19 Vaccine (4 - 2023-2 5 season) 2024 02/27/2022, 01/15/2021, 12/11/2020 Influenza Vaccine (FLU shot) (#1) 2024 07/13/2014, 08/12/2013 Pneumococcal Vaccine: 65+ Years Completed 09/30/2020, 02/21/2007 HPV (Gardasil) Vaccine Aged Out No lo nger eligible based on patient's age to complete this topic Hepatitis B Vaccine Aged Out No longe r eligible based on patient's age to complete this topic MENINGOCOCCAL (MENACTRA/MENVEO) Aged Out No longer eligible b ased on patient's age to complete this topic documented as of this encounter Medical Devices Not on filedocumented as of this encounter Visit Diagnoses Diagnosis Post-nasal drip- Primary Postnasal drip documented in this encounter Care Teams Sheet Heater Helper Relationship Specialty Start Date End Date Agustin Majano MD [address] [facility] [place] [address] PCP - General Family Medicine 07/17/23 documented as of this encounter
--- OUTSIDE RECORDS SUMMARY | 2024-12-10 03:11 | External Medical Summary | Continuity of Care Document ---
Author Name Unknown Organization [facility] [address] [facility] [address] [phone] Care Team Providers Care Component Technician Name Role Phone Roxi Majanoan Primary Care Physician [phone] Encounter [facility] [id number] Date(s): 08/07/24 - 08/07/24 [facility] [address] [facility] [address] [phone] [place] Discharge Disposition: Home or Self Care Attending Physician: MD Albarado Sara B Referring Physician: MD Albarado Sara B Allergies, Adverse Reactions, Alerts Substance Criticality Severity Reaction Reaction Severity Status lisinopril Cough Active tetanus toxoid swelling Activ e Benicar Cough Active Immunizations Given and Recorded Vaccine Date Status [...] to trunk and extremities for dermatitis, Pharmacy: [id number] Start Date: 04/05/22 Status: [...] PO, Daily Start Date: 11/20/12 Status: Ordered Problem List Condition Confirmation Course Effective Dates Status H ealth Status Informant ARTHRITIS Confirmed 06/22/11 Active AF (atrial fibrillation) 1 Confirmed 01/14/19 Active BENIGN ESSENTIAL HYPERTENSION Confirmed 06/11/10 Active Changing skin lesion Confirmed Active Colonoscopy 2, 3 Confirmed Active Diverticulosis of sigmoid colon Confirmed 08/04/15 Active DN - Dysplastic nevus Confirmed Active Hyperlipidemia Confirmed Active Impaired fasting glucose Confirmed 06/11/10 Active Toxic effect of insecticide Confirmed 06/09/16 Active Enlarged prostate Confirmed Active 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 Buzz Walls [address]5838: normal 12360: NORMAL Procedures Procedure Date Related Diagnosis Body Site Status Excision 07/24/24 Completed Shave biopsy of skin 1 06/18/24 Co mpleted Surgery 2 09/2023 Completed Procedure 3 08/15/[address] of abdomen and pelvis 4 01/16/18 Completed CXR - Chest X-ray 5 01/16/18 Compl eted CXR - Chest X-ray 6 08/31/16 Compl eted CXR - Chest X-ray 7 08/31/16 Compl eted CXR - Chest X-ray 8 06/05/16 Compl eted Colonoscopy 9 08/04/15 Completed Colonoscopy 2002 Completed Cataract Completed Hernia repair 10 Complete d Imaging,chest Completed Right Hand Trigger Finger Surgery Completed Right Knee Surgery 11 Com pleted Shoulder Surgery Complete d Ultrasound scan of abdominal aorta 12 Completed Wrist Surgery 13 Complete d 11. left ear lobe 2. left forearm 2trigger finger surgery 3right hand carpal tunnel and trigger finger 4No significant abnormality identified within the abdomen or pelvis. 5No active disease in the chest. 6No significant change compared to the prior study. No acute process. 7No significant change compared to the prior study. No acute process. 8No acute cardiopulmonary findings. 9The examined portion of the ileum was normal. Diverticulosis in the sigmoid colon No specimens collected. Repeat in 10 years. 10Left 11and left knee 1222016: no AAA. normal. [id number] Social History Social History Type Response Tobacco Former smoker 1 Smoking Status Former Smoker, quit > 1 yr Sex Male Sex Representation Male (finding) 1quited 60 years ago Patient Care team information Care Team Personnel Name: MD Majano Juan Position: Physician - Family Med Member Role: Primary Care Provider Address: [address] [place] [address] Care Team Related Persons Name: RAMSES HALL
--- OUTSIDE RECORDS SUMMARY | 2024-12-10 03:11 | External Medical Summary | Continuity of Care Document ---
Author Name Unknown Organization [facility] [address] [facility] 2 Address [address] [phone] Care Team Providers Care Electronic Gaming Device Supervisor Name Role Phone Agustin Majano Primary Care Physician [phone] Encounter [facility] [id number] Date(s): 11/20/24 - 11/20/24 [facility] [address] [facility] [address] [phone] Encounter Diagnosis Skin lesion of face(Discharge Diagnosis) - 11/20/24 History of malignant melanoma of skin(Discharge Diagnosis) - 11/20/24 Inflamed seborrheic keratosis(Discharge Diagnosis) - 11/20/24 Discharge Disposition: Home or Self Care Attending Physician: MD Adri, Shukri Barillas Allergies, Adverse Reactions, Alerts Substance Criticality Severity Reaction Reaction Severity Status lisinopril Cough Active tetanus toxoid swelling Activ e Benicar Cough Active Assessment and Plan Extracted from: Title:Clinical Document Author:MD Adri, Lauro Barillas Date:11/20/24 OUTPATIENT NOTE Name: MATT SKINNER Patient Number:1 [id number] : 1940 Date of Service: 11/20/2024 _ Matt Skinner returns for skin examination. 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 This remains clear of recurrence. Keratotic papules are noted by the patient on the right parietal scalp, left superior abdomen, left lateral trunk, left preauricular area, right preauricular area all inflamed seborrheic keratoses which were treated at patient request and with his consent with cryotherapy with patient consent. Side effects were discussed. Review of systems medications allergies as noted on the chart. The patient is in stable health. Examination reveals pleasant well-nourished white male type II skin alert and oriented x 3 with no mood and affect. Examination of the scalp, head, neck, back, chest, arms, hands, fingers, abdominal area, legs reveals findings as noted above, skin colored soft papule which the patient repeatedly cuts while shaving on the left malar cheek. He would like to have this removed and it was removed today for that reason. Intradermal nevus left cheek 5 mm. Consent obtained. Timeout signed. Lidocaine with epinephrine local anesthesia followed by tangential removal and hemostasis with electrocautery. Specimen was submitted for pathology and the patient will be informed with result of the pathology report. Petrolatum and bandage applied. Patient tolerated procedure well. Examination reveals multiple seborrheic keratoses on the back, chest, and arms which require no further treatment. Examination is otherwise unremarkable. The patient will return for an appointment in May to see Dr. Albarado and then will return on an every 6-month basis. Immunizations Given and Recorded Vaccine Date Status [...] to trunk and extremities for dermatitis, Pharmacy: [id number] Start Date: 04/05/22 Status: Ordered [...] Start Date: 11/20/12 Status: Ordered Mental Status 11/20/24 Barriers to Learning one year None evide nt Mandatory Health Literacy Documentation Yes Health Literacy Communication Barriers N ever Primary Language Uzbek Problem List Condition Confirmation Course Effective Dates [...] finger Confirmed Active 1sees Dr. Buzz Walls [address]3390: normal 01116: NORMAL Diagnosis Diagnosis Type Effective Dates Health Status Clinical Service Informant Inflamed seborrheic keratosis Discharge Diagnosis 11/20/24 Skin lesion of face Discharge Diagnosis 11/20/24 History of malignant melanoma of skin Discharge Diagnosis 11/20/24 Procedures Procedure Date Related Diagnosis Body Site [...] 12and left knee 132/2016: no AAA. normal. [id number] Social History Social History Type Response Tobacco Former smoker 1 Smoking Status Never smoked cigaret lucero Sex Male Sex Representation Male (finding) 1quited 60 years ago Outpatient Note * MD Adri, Shukri Barillas: PERFORM Event Display: .Outpt Note Authored Date: [id number] OUTPATIENT NOTE Name: MATT SKINNER Patient Number:[id number] : 1940 Date of Service: 11/20/2024 _ Matt Skinner returns for skin examination. 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 This remains clear of recurrence. Keratotic papules are noted by the patient on the right parietal scalp, left superior abdomen, leftlateral trunk, left preauricular area, right preauricular area all inflamed seborrheic keratoses which were treated at patient request and with his consent with cryotherapy with patient consent. Sideeffects were discussed. Review of systems medications allergies as noted on the chart. The patient is in stable health. Examination reveals pleasant well-nourished white male type II skin alert and oriented x 3 with no mood and affect. Examination of the scalp, head, neck, back, chest, arms, hands, fingers, abdominal area, legs reveals findings as noted above, skin colored soft papule which the patient repeatedly cuts while shaving on the left malar cheek. He would like to have this removed and it was removed today for that reason. Intradermal nevus left cheek 5 mm. Consent obtained. Timeout signed. Lidocaine with epinephrine local anesthesia followed by tangential removal and hemostasis with electrocautery. Specimen was submitted for pathology and the patient will be informed with result of the pathology report. Petrolatum and bandage applied. Patient tolerated procedure well. Examination reveals multiple seborrheic keratoses on the back, chest, and arms which require no further treatment. Examination is otherwise unremarkable. The patient will return for an appointment in May to see Dr. Albarado and then will return on an every 6-month basis. Electronic Signature on File Electronically Reviewed/Signed by: Shukri Rush MD Author Signature Dt/Tm:11/20/2024 12:26 PM Department of Dermatology [facility] Patient Care team information Care Team Personnel Name: MD Majano Juan Position: Physician - Family Med Member Role: Primary Care Provider Address: [address] [place] [id number] Care Team Related Persons Name: RAMSES SKINNER
--- OUTSIDE RECORDS SUMMARY | 2024-12-10 03:11 | External Medical Summary | Continuity of Care Document ---
Author Name Unknown Organization [facility] [address] [facility] 2 Address [address], [place] [id number] Care Team Providers Care Evaluation Advisor Name Role Phone Agustin Majano Primary Care Physician [phone] [id number] Date(s): 06/18/24 - 06/18/24 [facility] [address] [facility] 2 [address] [place] [phone] Encounter Diagnosis Changing skin lesion(Discharge Diagnosis) - 06/18/24 Seborrheic keratoses(Discharge Diagnosis) - 06/18/24 Discharge Disposition: Home or Self Care Attending Physician: URIEL Sinclair Holly C Allergies, Adverse Reactions, Alerts Substance Criticality Severity Reaction Reaction Severity Status lisinopril Cough Active tetanus toxoid swelling Activ e Benicar Cough Active Assessment and Plan Extracted from: Title:Dermatology Office Visit Note Author:URIEL Sinclair Holly C Date:06/18/24 1.Changing skin lesion Shave biopsy:After thorough discussion of the risks, benefits, and alternatives to the procedure, verbal consent was obtained. All questions were answered to the patient s satisfaction. A timeout process was then performed, during which the patient s name, date, and surgical site were confirmed. The surgical site was prepped with alcohol and anesthetized using 1% lidocainewithepinephrine. The lesion was then biopsied via tangential shave at the base using aDermabladeand sent for pathology. Hemostasis was achieved withaluminum chloride.Vaseline and dressing applied. The patient was educated on wound healing and scar formation and counseled on proper wound care and signs of infection. Verbal and written instructions were provided. The patient left the clinic ingood condition.Advised we will contact him with a phone call or a letter. If he does not hear from us in 2 weeks please call the office for results. Pictures in chart. Location: 1 left ear lobe Size: 3 mm Description: thick crusty lesion Location: 2 left forearm Size: 1cm Description: brown irregular lesion I asked If I call to leave a message and they don't answer, can I leave a detailed message on machine or with person who answers. They may call back with any questions or concerns. Patient states that it is fine to leave a message. Patient is on Eliquiswhich increases his risk of bleeding. Discussed this with patient. 2.Seborrheic keratoses New Flared Discussed benign nature of lesions. Discussed treatment options including observation, moisturizing. Patient elects cryotherapy. Cryotherapy performed to inflamed seborrheic keratosisfollowing verbal consent.educated on may develop scabs, blisters, and fall off in 1-2 weeks, wound healing,dyspigmentation, infection, scar formation were discussed. Wound care instruction was provided. Patients questions were answered. Liquid nitrogen performed on 7 lesions back Advised patient to call with any problems, questions, or concerns. States understanding. Patient was seen independently,Dr Richardson for immediate collaboration as needed during this visit. scheduled to see Dr Rush 10/2024. Immunizations Given and Recorded Vaccine Date Status [...] to trunk and extremities for dermatitis, Pharmacy: [id number] Start Date: 04/05/22 [...] Start Date: 11/20/12 Status: Ordered Mental Status 06/18/24 Barriers to Learning one year None evide nt Mandatory Health Literacy Documentation Yes Health Literacy Communication Barriers N ever Primary Language Finnish Problem List Condition Confirmation Course Effective Dates [...] Confirmed 06/09/16 Active Enlarged prostate Confirmed Active Osteoarthritis of right wrist Confirmed Active Seborrheic keratoses Confirmed Active SK (seborrheic keratosis) Confirmed Active Trigger finger Confirmed Active 1sees Dr. Buzz Walls 32033: normal 90487: NORMAL Diagnosis Diagnosis Type Effective Dates Health Status Clinical Service Informant Changing skin lesion Discharge Diagnosis 06/18/24 Non-Specified Seborrheic keratoses Discharge Diagnosis 06/18/24 Non-Specified Procedures Procedure Date Related Diagnosis Body Site Status Shave biopsy of skin 1 06/18/24 Co [...] in 10 years. 10Left 11and left knee 122: no AAA. normal. [id number] Social History Social History Type Response Tobacco Former smoker 1 Smoking Status Never smoked cigaret lucero Sex Male Sex Representation Male (finding) 1quited 60 years ago Dermatology Outpatient Note * URIEL Sinclair, Marta Guzman: PERFORM Event Display: Dermatology Outpt Note Authored Date: Chief Complaint Referred by family doctor for mole to left forearm History of Present Illness 84 Yearsold[age]epatient here for skin check. Patient reports area of concern today: spot on left ear and left forearm. has SK's on back he would like frozen as they are itchy and irritating. No other skin areas of concern. Otherwise healthy. Physical Exam General: Well developed, well nourished, white malein no acute distress. Oriented x3 with appropriate mood and affect. Skin: skin exam performed of hair, scalp, ears, face, nose, lips, neck, chest, abdomen, back, axilla, upper extremities, hands. brown waxy keratotic papules and plaques consistent with seborrheic keratoses, some on back are irritated. 3 mm red crusty lesion on left ear lobe 1cm brown lesion on left forearm. Patient declined further exam. Denied any other areas of concerns. Images 2024-06-18 11:10:20 2024-06-18 11:10:30 2024-06-18 11:10:39 2024-06-18 11:10:47 Assessment/Plan 1.Changing skin lesion Shave biopsy:After thorough discussion of the risks, benefits, and alternatives to the procedure, verbal consent was obtained. All questions were answered to the patients satisfaction. A timeout process was then performed, during which the patients name, date, and surgical site wereconfirmed. The surgical site was prepped with alcohol and anesthetized using 1% lidocainewithepinephrine. The lesion was then biopsied via tangential shave at the base using aDermabladeand sent for pathology. Hemostasis was achieved withaluminum chloride.Vaseline and dressing applied. The patient was educated on wound healing and scar formation and counseled on proper wound care and signsof infection. Verbal and written instructions were provided. The patient left the clinic ingood condition.Advised we will contact him with a phone call or a letter. If he does not hear from us in2 weeks please call the office for results. Pictures in chart. Location: 1 left ear lobe Size: 3 mm Description: thick crusty lesion Location: 2 left forearm Size: 1cm Description: brown irregular lesion I asked If I call to leave a message and they don't answer, can I leave a detailed message on machine or with person who answers. They may call back with any questions or concerns. Patient states that it is fine to leave a message. Patient is onEliquiswhich increases his risk of bleeding. Discussed this with patient. 2.Seborrheic keratoses New Flared Discussed benign nature of lesions. Discussed treatment options including observation, moisturizing. Patient elects cryotherapy. Cryotherapy performed to inflamedseborrheic keratosisfollowing verbal consent.educated on maydevelop scabs, blisters, and fall off in 1-2 weeks, wound healing,dyspigmentation, infection, scar formation were discussed. Wound care instruction was provided. Patients questions were answered. Liquid nitrogen performed on 7lesions back Advised patient to call with any problems, questions, or concerns. States understanding. Patient was seenindependently,Dr Richardson for immediate collaboration as needed during this visit. scheduled to see Dr Rush 10/2024. Problem List/Past Medical History Ongoing AF (atrial fibrillation) ARTHRITIS BENIGN ESSENTIAL HYPERTENSION Changing skin lesion Colonoscopy Diverticulosis of sigmoid colon DN - Dysplastic nevus Enlarged prostate Hyperlipidemia Impaired fasting glucose Osteoarthritis of right wrist Seborrheic keratoses SK (seborrheic keratosis) Toxic effect of insecticide Trigger finger Procedure/Surgical History Shave biopsy of skin| Service Date: 06/18/2024Surgery| Service [...] Cardiovascular disease: Father. Health Status Family Member(s) Electronic Signature on File Electronically Reviewed/Signed by: Marta Sinclair PA-C Author Signature Dt/Tm:06/18/2024 12:10 PM Department of Dermatology Electronically Reviewed/Signed by: Allegra Albarado MD Cosigner Signature Dt/Tm: 06/18/2024 12:11 PM Department of Dermatology [facility] Patient Care team information Care Team Personnel Name: MD Majano Juan Position: Physician - Family Med Member Role: Primary Care Provider Address: [address] [place] [id number] Care Team Related Persons Name: RAMSES HALL"
--- OUTSIDE RECORDS SUMMARY | 2024-12-10 03:11 | External Medical Summary | Continuity of Care Document ---
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(Discharge Diagnosis) - 07/24/24 Discharge Disposition: Home or Self Care Attending Physician: MD Albarado Sara B Referring Physician: URIEL Sinclair, Marta Guzman Allergies, Adverse Reactions, Alerts Substance Criticality Severity [...] to trunk and extremities for dermatitis, Pharmacy: [id number] Start Date: 04/05/22 Status: [...] Start Date: 11/20/12 Status: Ordered Mental Status 07/24/24 Barriers to Learning one year None evide nt Mandatory Health Literacy Documentation Yes Health Literacy Communication Barriers N ever Primary Language Vietnamese Problem List Condition Confirmation Course Effective Dates [...] finger Confirmed Active 1sees Dr. 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 10Left 11and left knee 122/2016: no AAA. normal. [id number] Social History Social History Type Response Tobacco Former smoker 1 Smoking Status Former Smoker, quit > 1 yr Sex Male Sex Representation Male (finding) 1quited 60 years ago .Outpt Proc * MD Per, Allegra Bae: PERFORM, MODIFY, MODIFY Event Display: .Outpt Proc Authored Date: [id number] OUTPATIENT PROCEDURE Name: MATT HALL Patient Number: [id number] : 1940 Date of Service: 07/24/2024 Diganosis: MMIS Site: left ventral forearm Operation performed: Elliptical excision of above with intermediate layered closure Pathology Reviewed: Yes Original lesion size: 11mm Margins Size: 5mm Total excised diameter: 2.1 cm Final Length Of Closure: 1.5 cm The patient was taken to the surgical suite where the benefits and risks of the procedure were explained. After time was given for questions, a signed consent was obtained and a time out form was completed and sent to be scanned into the patient's chart. The patient was then placed on the operatingtable in the supine position. The proposed excision area was prepped with an antiseptic solution and draped in the usual sterile fashion. 1% lidocaine with epinephrine was infiltrated until adequate anesthesia was obtained. Approximately 4cc were given. A #15 blade was used to excise the lesion with 5 mm margins in a fusiform shape down through the subcutaneous fat to fascia. The excision was then completed using the same blade and a pair of small curved Iris scissors. The specimen was placed in a formalin-filled container labeled with the patients identifying data and sent to pathology for examination. The wound edges were undermined with a combination of sharp and blunt dissection in the superficial subcutaneous plane and hemostasis was achieved with spot electrocautery and suture ligation as needed. The defect was then closed in a layered fashion consisting of 4.0 vicryl deep sutures to close deeper subcutanous layers in a partial purse string fashionand 5.0 ethilon superfiscialskin sutures. Layered closure was required to eliminate space, relieve tension and prevent defo rmity. The long axis of the closure was oriented so as to parallel the relaxed skin tension lines as much as possible to minimize any pull or distortion on nearby anatomic structures. A pressure dressing was placed with vaseline ointment, non-stick pad, gauze and tape. Estimated blood loss was lessthan 10 ml and there were no complications. The patient received both written and verbal wound careinstructions and left the Dermatology Clinic in good condition. The patient is to return to clinic in 2 weeks for suture removal, but should contact us immediately if any problems develop in the interim. We discussed his increased risk of bleeding due to the Eliquis. He stopped it 2 days ago but have asked him to go ahead and restart it today. In addition we discussed prognosis of melanoma in situ his increased risk of developing a separate melanoma through his lifetime also slight increased risk of melanoma in first-degree family members. He had no further questions at this point. Electronic Signature on File Electronically Reviewed/Signed by: Allegra Albarado MD Author Signature Dt/Tm:07/24/2024 11:33 AM Department of Dermatology [facility] Patient Care team information Care Team Personnel Name: MD Majano Juan Position: Physician - Family Med Member Role: Primary Care Provider Address: [address] [place] [address] Care Team Related Persons Name: RAMSES HALL
--- OUTSIDE RECORDS SUMMARY | 2024-12-10 03:11 | External Medical Summary | Summary of Care ---
Author Name Unknown Organization [facility] Address [address] [place] [address] Phone [phone] Care Team Providers Care Edi Architect Name Role Phone Agustin Majano MD Primary Care Provider [phone] Encounter Details Date Type Department Care Team (Late st Contact Info) Description 12/02/2024 Population Health External Data Unspecified Department Allergies Active Allergy Reactions Criticality Noted Date Comments Olmesartan Cough 01/29/2019 Tetanus Antitoxin Hives High 01/29/2019 documented as of this encounter (statuses as of 12/02/2024) Medications Cholecalciferol (VITAMIN D3) 1000 units CAPS Take by mouth 3 times a day. Active Cranberry 1000 MG Capsule Take 1,000 mg by mouth 2 times a day. Active Lutein 20 MG Capsule Take 1 Capsule by mouth in the morning. Active Multiple Vitamins-Minerals (MULTIVITAMIN ADULT) TABS Take by mouth. Act radha omega-3 1000 MG CAPS Take by mouth. Activ e Metoprolol Succinate ER 25 MG Oral Tablet Extended Release 24 Hour (toPROL XL) Take 1 Tablet by mouth in the morning. 200 Tablet 3 3 Active Metoprolol Tartrate 25 MG Oral Tablet (Lopressor) Take 1 Tablet by mouth in the morning and 1 Tablet before bedtime. 180 Tablet 3 3 Active Apixaban 5 MG Oral Tablet (Eliquis)Indicati ons:Longstanding persistent atrial fibrillation (HCC) Take 1 Tablet by mouth in the morning and 1 Tablet before bedtime. 200 Tablet 3 11/19/2024 12:57 PM EST 4 Active Atorvastatin Calcium 10 MG Oral Tablet (Lipitor)Indicati ons:Dyslipidemia, goal LDL below 100 Take 1 Tablet by mouth in the morning. 100 Tablet 3 11/14/2024 7:25 AM EST 4 Active dilTIAZem HCl ER Beads 120 MG Oral Capsule Extended Release 24 HourIndications:L ongstanding persistent atrial fibrillation (HCC) Take 1 Capsule by mouth in the morning. 100 Capsule 3 11/14/2024 7:25 AM EST 4 Active Metoprolol Succinate ER 25 MG Oral Tablet Extended Release 24 Hour (toPROL XL)Indications:Lo ngstanding persistent atrial fibrillation (HCC) Take 1 Tablet by mouth in the morning and 1 Tablet before bedtime. 200 Tablet 3 11/14/2024 7:25 AM EST 4 Active Azelastine HCl 0.1 % Nasal Solution (Astelin) Administer 1 [place] into nostril in the morning and 1 [place] before bedtime. 30 mL 12 4 Active documented as of this encounter (statuses as of 12/02/2024) Active Problems Problem Noted Date Diagnosed Date Prediabetes 07/23/2023 Overview: Per Prediabetes protocol Dyslipidemia, goal LDL below 100 09/17/2019 Essential hypertension with goal blood pressure less than 130/80 09/17/2019 Longstanding persistent atrial fibrillation 07/14 documented as of this encounter (statuses as of 12/02/2024) Immunizations Name Administration Dates Next Due COVID-19 [...] Recorded Sex Assigned at Not on file Legal Sex Male 5:32 AM EST Gender Identity Not on file Sexual Orientation Not on file documented as of this encounter Plan of Treatment Upcoming Encounters Date Type Department Care Team (Late st Contact Info) Description 10/13/2025 3:30 PM EST Office Visit Cardiology, [facility] [address] [place] [address] Shukri Jang, [address] [place] [address] Health Maintenance Due Date Last Done Comments Depression Screening 1952 Albumin/Creatinine Ratio 02/16/1960 DTap/Tdap Vaccines (1 - Tdap) 1961 Zoster Vaccines (1 of 2) 02/16/1992 GFR 03/04/2022 03/04/2021 HbA1c 03/04/2022 03/04/2021 COVID-19 Vaccine (4 - 2023-2 5 season) 2024 02/27/2022, 01/15/2021, 12/11/2020 Influenza Vaccine (FLU shot) (#1) 2024 07/13/2014, 08/12/2013 Pneumococcal Vaccine: 50+ Years Completed 09/30/2020, 02/21/2007 HPV (Gardasil) Vaccine [...] Not on filedocumented as of this encounter Care Teams Edi Architect Relationship Specialty Start Date End Date Agustin Majano MD [address] [place] [address] PCP - General Family Medicine 07/17/23 documented as of this encounter
--- OUTSIDE RECORDS SUMMARY | 2024-12-10 03:11 | External Medical Summary | Continuity of Care Document ---
Author Name Unknown Organization [facility] [address] 1 Address [address] [facility], [place] [phone] Care Team Providers Care Sanitation Truck Cleaner Name Role Phone Agustin Majano Primary Care Physician [phone] [id number] Date[facility]s): 12/03/24 - 12/03/24 [facility] [address] [facility] [address], [facility] 1 [place], [phone] Encounter Diagnosis Essential (primary) hypertension(Final) - Unspecified atrial fibrillation(Final) - Hyperlipidemia, unspecified(Final) - Impaired fasting glucose(Final) - Discharge Disposition: Home or Self Care Attending [...] to trunk and extremities for dermatitis, Pharmacy: [id number] Start Date: 04/05/22 [...] finger Confirmed Active 1sees Dr. Buzz Walls 40081: normal 56492: NORMAL Procedures Procedure Date Related Diagnosis Body [...] 12and left knee 132/2016: no AAA. normal. [id number] Results Laboratory List Name Date Complete Blood Count (CBC) 12/03/24 Comprehensive Metabolic Panel (COMP META B PANEL) 12/03/24 Hemoglobin A1C (HEMOGLOBIN, A1C) 12/03/24 Lipid Profile (LIPOPROTEINS) 12/03/24 Thyroid Stimulating Hormone (TSH) 5 Urine Analysis w/ Reflexed Microscopic. (URINE W/REFLEX MICR) 12/03/24 Most recent to oldest [Reference Range]: 1 eGFR CKD-EPI [>60 mL/min/1.73 m2] 69 mL/ min/1.73 m2 1 (12/03/24 7:53 AM) Estimated Average Glucose 123 mg/dL 2 (12/03/24 7:53 AM) Non-HDL 79 mg/dL 3 (12/03/24 7:53 AM) Estimated CrCl 50.57 mL/min (12/03/24 8:30 AM) MPV [9.0-12.2 fL] 11.4 fL (12/03/24 7:53 AM) RDW [11.5-14.2 %] 13.8 % (12/03/24 7:53 AM) Anion Gap [5-14 mmol/L] 0 mmol/L *LOW* (12/03/24 7:53 AM) Alb [3.5-5.0 g/dL] 4.1 g/dL (12/03/24 7:53 AM) Alk Phos [38-126 unit/L] 61 unit/L (12/03/24 7:53 AM) ALT [<50 unit/L] 41 unit/L (12/03/24 7:53 AM) AST [15-46 unit/L] 31 unit/L (12/03/24 7:53 AM) Bili (u) [NEG] NEGATIVE *Unknown* (12/03/24 7:53 AM) BUN [7-20 mg/dL] 29 mg/dL *HI* (12/03/24 7:53 AM) Ca [8.4-10.2 mg/dL] 9.2 mg/dL (12/03/24 7:53 AM) Chol/HDL 2 (12/03/24 7:53 AM) Chol [125-200 mg/dL] 141 mg/dL (12/03/24 7:53 AM) Cl- [96-107 mmol/L] 107 mmol/L (12/03/24 7:53 AM) HCO3 [22-30 mmol/L] 32 mmol/L *HI* (12/03/24 7:53 AM) Cret [0.70-1.30 mg/dL] 1.08 mg/dL (12/03/24 7:53 AM) HbA1c [4.0-6.0 %] 5.9 % (12/03/24 7:53 AM) Glu [74-106 mg/dL] 106 mg/dL (12/03/24 7:53 AM) Hct [39-48 %] 40.6 % (12/03/24 7:53 AM) HDL [>35 mg/dL] 62 mg/dL (12/03/24 7:53 AM) Hgb [13.0-17.0 g/dL] 14.5 g/dL (12/03/24 7:53 AM) K [3.5-5.1 mmol/L] 4.6 mmol/L (12/03/24 7:53 AM) Ketones [NEG mg/dL] NEGATIVE mg/dL (12/03/24 7:53 AM) LDL Chol, Calculated [50-130 mg/dL] 69 m g/dL (12/03/24 7:53 AM) Leuk Est [NEG] NEGATIVE 4 *Unknown* (12/03/24 7:53 AM) MCH [28-33 pg] 35.0 pg *HI* (12/03/24 7:53 AM) MCHC [32-36 g/dL] 35.7 g/dL (12/03/24 7:53 AM) MCV [81-96 fL] 98.1 fL *HI* (12/03/24 7:53 AM) Na [137-145 mmol/L] 139 mmol/L (12/03/24 7:53 AM) Nitrite (u) [NEG] NEGATIVE *Unknown* (12/03/24 7:53 AM) Plts [150-350 K/uL] 134 K/uL *LOW* (12/03/24 7:53 AM) RBC [4.40-5.60 M/uL] 4.14 M/uL *LOW* (12/03/24 7:53 AM) T Bili [0.2-1.3 mg/dL] 1.2 mg/dL (12/03/24 7:53 AM) Prot [6.3-8.2 g/dL] 6.9 g/dL (12/03/24 7:53 AM) TG [<200 mg/dL] 50 mg/dL (12/03/24 7:53 AM) TSH [0.47-4.68 uIU/mL] 2.06 uIU/mL 5 (12/03/24 7:53 AM) Appear (u) CLEAR *Unknown* (12/03/24 7:53 AM) Color (u) YELLOW *Unknown* (12/03/24 7:53 AM) Glu (u) [NEG mg/dL] NEGATIVE mg/dL (12/03/24 7:53 AM) Hgb (u) [NEG] NEGATIVE *Unknown* (12/03/24 7:53 AM) pH (u) [4.5-8.0 unit] 7.0 unit (12/03/24 7:53 AM) Prot (u) [NEG mg/dL] NEGATIVE mg/dL (12/03/24 7:53 AM) Urobili [0.1-1.0 EU/dL] 0.2 EU/dL (12/03/24 7:53 AM) SG [1.005-1.030] 1.015 (12/03/24 7:53 AM) WBC [4.0-10.4 K/uL] 4.50 K/uL (12/03/24 7:53 AM) 1Result Comment: Testing [facility]formed [facility] [place], [address] [place] [address], [place] [address] 2Result Comment: Testing Performed [facility]: [facility], [address] [place] [address], [place] [address] 3Result Comment: Testing Performed By: [facility], [address] [place] [address], [place] [address] 4Result Comment: Testing Performed By: [facility] [place], [address] [place] [address], [place] [address] 5Result Comment: Testing Performed By: Dept of Pathology [facility], [address] [place] [address], [place] [address] Social History Social History Type Response Tobacco Former smoker 1 Smoking Status Never smoked cigaret lucero Sex Male Sex Representation Male (finding) 1quited 60 years ago Patient Care team information Care Team Personnel Name: MD Majano Juan Position: Physician - Family Med Member Role: Primary Care Provider Address: [address] [place] [address], [place] [address] [place] Care Team Related Persons Name: RAMSES HALL
--- OUTSIDE RECORDS SUMMARY | 2024-12-10 03:11 | External Medical Summary | Summary of Care ---
Author Name Unknown Organization [facility] Address [address] [place] [address] Phone [phone] Care Team Providers Care Slot Router Name Role Phone Agustin Majano MD Primary Care Provider [phone] Reason for Visit * Reason Onset Date Comments Medication Problem 10/02/2024 Eliquis PAP 2 025 Encounter Details Date Type Department Care Team (Late st Contact Info) Description 10/02/2024 Telephone Cardiology, [facility] [address] [facility] [place] [address] [facility] [address] [facility] [place] [address] Medication Problem (Eliquis PAP 2024) Allergies Active Allergy Reactions Criticality Noted Date Comments Olmesartan Cough 01/29/2019 Tetanus Antitoxin Hives High 01/29/2019 documented as of this encounter (statuses as of 10/02/2024) Medications Cholecalciferol (VITAMIN D3) 1000 units CAPS [...] 1 Tablet before bedtime. 200 Tablet 3 06/20/2024 12:18 PM EDT 4 Active Atorvastatin Calcium 10 MG Oral Tablet (Lipitor)Indicati ons:Dyslipidemia, goal LDL below 100 Take 1 Tablet by mouth in the morning. 100 Tablet 3 06/20/2024 12:18 PM EDT 4 Active dilTIAZem HCl ER Beads 120 MG Oral Capsule Extended Release 24 HourIndications:L ongstanding persistent atrial fibrillation (HCC) Take 1 Capsule by mouth in the morning. 100 Capsule 3 06/20/2024 12:18 PM EDT 4 Active Metoprolol Succinate ER 25 MG Oral Tablet Extended Release 24 Hour (toPROL XL)Indications:Lo ngstanding persistent atrial fibrillation (HCC) Take 1 Tablet by mouth in the morning and 1 Tablet before bedtime. 200 Tablet 3 06/20/2024 12:18 PM EDT 4 Active Azelastine HCl 0.1 % Nasal Solution (Astelin) Administer 1 [place] into nostril in the morning and 1 [place] before bedtime. 30 mL 12 4 Active documented as of this encounter (statuses as of 10/02/2024) Active Problems Problem Noted Date Diagnosed Date Prediabetes 07/23/2023 Overview: Per Prediabetes protocol Dyslipidemia, goal LDL below 100 09/17/2019 Essential hypertension with goal blood pressure less than 130/80 09/17/2019 Longstanding persistent atrial fibrillation 07/14 documented as of this encounter (statuses as of 10/02/2024) Immunizations Name Administration Dates Next Due COVID-19 [...] on file documented as of this encounter Miscellaneous Notes * Telephone Encounter - Donna Wakefield RPh - 10/02/2024 10:42 AM EST Patient dropped of Evermindis PAP renewal form for 2024 through [facility] Provider portion completed and emailed to Iva Gutierrez in case it is needed Does not appear [place] team has ever helped with assistance for this patient in the past Can you please add him to your tracker and help with assistance? Donna Wakefield Pharm D Clinical MTDM Pharmacist Cardiology 10/02/2024,10:43 AM documented in this encounter Plan of Treatment Health Maintenance Due Date Last Done Comments Depression Screening 1952 Albumin/Creatinine Ratio 02/16/1960 DTap/Tdap Vaccines (1 - Tdap) 1961 Zoster Vaccines (1 of 2) 02/16/1992 GFR 03/04/2022 03/04/2021 HbA1c 03/04/2022 03/04/2021 COVID-19 Vaccine (2023-2 5 season) 2024 02/27/2022, 01/15/2021, 12/11/2020 Influenza [...] filedocumented as of this encounter Care Teams Slot Router Relationship Specialty Start Date End Date Agustin Majano MD [address] [place] [address] PCP - General Family Medicine 07/17/23 documented as of this encounter
--- OUTSIDE RECORDS SUMMARY | 2024-12-10 03:11 | External Medical Summary | Summary of Care ---
Author Name Unknown Organization [facility] Address [address] [place] [address] Phone [phone] Care Team Providers Care Mapping Pilot Name Role Phone Agustin Majano MD Primary Care Provider [phone] Reason for Visit * Reason Onset Date Comments Medication Problem 10/02/2024 Eliquis PAP 2 025 Encounter Details Date Type Department Care Team (Late st Contact Info) Description 10/02/2024 Telephone Cardiology, [facility] [address] [facility] [place] [address] [facility] [address] [facility] [place] [address] Medication Problem (Eliquis PAP 2024) Allergies Active Allergy Reactions Criticality Noted Date Comments Olmesartan Cough 01/29/2019 Tetanus Antitoxin Hives High 01/29/2019 documented as of this encounter (statuses as of 10/16/2024) Medications Cholecalciferol (VITAMIN D3) 1000 units CAPS [...] 0.1 % Nasal Solution (Astelin) Administer 1 [place] into nostril in the morning and 1 [place] before bedtime. 30 mL 12 4 Active documented as of this encounter (statuses as of 10/16/2024) Active Problems Problem Noted Date Diagnosed Date Prediabetes 07/23/2023 Overview: Per Prediabetes protocol Dyslipidemia, goal LDL below 100 09/17/2019 Essential hypertension with goal blood pressure less than 130/80 09/17/2019 Longstanding persistent atrial fibrillation 07/14 documented as of this encounter (statuses as of 10/16/2024) Immunizations Name Administration Dates Next Due COVID-19 [...] Telephone Encounter - Donna Wakefield RPh - 10/16/2024 2:21 PM EST Received fax from [employer] that pt not eligible for Eliquis 2024 PAP: Did not have documentation of 35 of out pocket spending on Rx drug costs Did not provide documentation of denial of Medicare part D low income subsidy (LIS) program Will send pt myG message Will scan form into chart * Telephone Encounter - Donna Wakefield RPh - 10/02/2024 10:42 AM EST Patient dropped of Eliquis PAP renewal form for 2024 through [facility] Provider portion completed and emailed to Iva Gutierrez in case it is needed Does not appear [place] team has ever helped with assistance for this patient in the past Can you please add him to your tracker and help with assistance? Donna Wakefield Pharm D Clinical MTDM Pharmacist Cardiology 10/02/2024,10:43 AM documented in this encounter Plan of Treatment Upcoming Encounters Date Type Department Care Team (Late st Contact Info) Description 10/13/2025 3:30 PM EST Office Visit Cardiology, [facility] [address] [place] [address] Shukri Jang DO [address] [place] [address] Health Maintenance Due Date Last Done Comments [...] filedocumented as of this encounter Care Teams Mapping Pilot Relationship Specialty Start Date End Date Agustin Majano MD [address] [place] [address] PCP - General Family Medicine 07/17/23 documented as of this encounter
[2024-12-10] MEDS: ACETAMINOPHEN 1,000 MG/100 ML VIAL IV SCH (03:37)
[2024-12-10] MEDS: METOPROLOL TARTRATE 1 MG/ML VIAL IV PRN (03:43)
[2024-12-10 04:02] LABS: Albumin Globulin Ratio 1.5 (0.9-2); Albumin Level 3.6 gm/dl (3.4-5.0); BUN Creatinine Ratio 18.9 (10-20); Bilirubin,Total 1.1 mg/dl (0.2-1.0); Calcium 8.1 mg/dl (8.6-10.3); Creatinine Clr Calc Pharmacy 39.9 ml/min; Globulin 2.4 gm/dl (2.5-4.0); Potassium 3.6 mmol/L (3.5-5.1)
[2024-12-10 04:15] LABS: Hemoglobin 13.4 g/dl (14.0-18.0); Mean Corpuscular Hemoglobin 32.7 pg (25.0-34.0); Mean Corpuscular Hgb Conc 35.3 g/dL (32.0-36.0); Mean Corpuscular Volume 92.7 fL (80.0-100.0); Mean Platelet Volume 11.3 fL (9.4-12.4); Platelet Count 91 K/uL (130-400); RDW Coefficient of Variation 14.1 % (11.5-14.5); RDW Standard Deviation 47.8 fL (36.4-46.3); White Blood Count 6.85 K/ul (4.8-10.8)
[2024-12-10 04:17] LABS: Basophils # (auto) 0.01 K/uL (0.00-0.20); Basophils % (auto) 0.1 %; Immature Granulocytes # (auto) 0.02 K/uL (0.01-0.20); Immature Granulocytes % (auto) 0.3 %; Lymphocytes # (auto) 0.43 K/uL (1.20-3.40); Lymphocytes % (auto) 6.3 %; Monocytes # (auto) 0.36 K/uL (0.11-0.59); Monocytes % (auto) 5.3 %; Neutrophils # (auto) 6.03 K/uL (1.40-6.50); Platelet Estimate Decreased (Normal); Toxic Vacuolation 1+
[2024-12-10] MEDS: AZITHROMYCIN 250 MG TAB PO SCH (08:48)
--- NOTE | 2024-12-10 09:37 | Electrocardiogram Report ---
Test Reason : Blood Pressure : */* mmHG Vent. Rate : 88 BPM Atrial Rate : * BPM P-R Int : * ms QRS Dur : 84 ms QT Int : 368 ms P-R-T Axes : * 0 9 degrees QTcB Int : 445 ms Poor data quality, interpretation may be adversely affected Atrial fibrillation with premature ventricular or aberrantly conducted complexes Septal infarct , age undetermined Abnormal ECG When compared with ECG of 18-Mar-2019 07:47, Atrial fibrillation has replaced Sinus rhythm Septal infarct is now Present Confirmed by Carmelo Raymond ([id number]) on 12/10/2024 9:36:48 AM Referred By: REFERRED SELF Confirmed By: Carmelo Raymond
[2024-12-10] MEDS: METOPROLOL SUCC 25MG EXT REL TAB PO SCH (10:49)
[2024-12-10] MEDS: dilTIAZem HCL 120 MG CAPCR PO SCH (10:49)
[2024-12-10] MEDS: APIXABAN 5 MG TABLET PO SCH (10:50)
[2024-12-10] MEDS: ACETAMINOPHEN 325 MG TAB PO PRN (14:41)
[2024-12-10] MEDS: ONDANSETRON INJ 2 MG/ML 2 ML VIAL IV PRN (14:43)
--- NOTE | 2024-12-10 16:19 | Hospitalist Progress Note ---
Date of Service December 10, 2024 Assessment & Plan (1) Acute kidney injury: (2) Campylobacter enteritis: (3) Thrombocytopenia: (4) Elevated troponin: Plan Patient is an 84-year-old male with a past medical history of A-fib on Eliquis, hypertension, hyperlipidemia who P/W nausea/diarrhea and fevers times 3 days. He is being admitted due to a fever for 39.5C, TJ, and elevated troponin secondary to Campylobacter enterocolitis. He ate undercooked chicken livers last week as he recalls which is the likely source. #Campylobacter/enterocolitis/sepsis POA/thrombocytopenia -AP CT showed pancolonic wall thickening, along with distal small bowel wall thickening, consistent with infectious/inflammatory enterocolitis. Stool PCR positive for Campylobacter. With some ongoing diarrhea but abdominal pain improving, remains with fevers and mild thrombocytopenia likely secondary to acute illness. Still somewhat tachycardic but no further leukocytosis. Procalcitonin was minimally elevated on admission. Chest x-ray negative. -Continue azithromycin 500 mg PO x 3 days or until symptoms improved with age and high fever -Continue isolation precautions -Finish out current bag of IVF and then stop -Advance diet to low fiber -Replace electrolytes as needed -Follow blood cultures #TJ/electrolyte abnormalities-2/2 to dehydration with acute infection/diarrhea. Cr increased to 1.98, BUN 32 (baseline) on admission and now improved to creatinine 1.48. UA elevated specific gravity, 1+ protein, hyaline casts. With hypomagnesemia, hyponatremia, and hypokalemia as well All are improving -Follow BMP, magnesium in the morning -Finish out 1 more bag of IV fluids -Replace electrolytes as needed #elevated troponin -suspect 2/2 to demand ischemia with acute infection. Troponin 30.4/29/44/52. No chest pain, ECG with atrial fibrillation without ischemic changes. Remains in atrial fibrillation with mild tachycardia -Resume home diltiazem and metoprolol for rate control # Permanent a fib-rates remain mildly uncontrolled in the 100s to 1 teens due to infection, fever, mild dehydration. -Resume home p.o. Eliquis, discontinue SQ heparin -Resume home diltiazem and metoprolol for rate control -Monitor on telemetry -Treating fever with Tylenol and IV fluids for dehydration #inguinal hernia-patient with LLQ pain for multiple weeks; nontender to palpation on admitting exam. CT showed left inguinal hernia with small knuckle of sigmoid colon; without evidence of incarceration or bowel obstruction -Can follow-up with PCP and consider surgery consult referral in out patient setting #HLD - holding statin but can resume VTE ppx: Eliquis Dispo: Continued stay PCU, PT/OT consults will be ordered to see if needs rehab, hopeful for discharge tomorrow Admission and Anticipated Discharge Date Admission Date: December 09, 2024 Subjective Patient had 1 loose stool thus far today, feels his abdominal pain is improving. Denies chest pain currently but reports he did have some the day prior to admission. Continues to have fevers here and feels fatigued but overall improved. Telemetry with atrial fibrillation with rates in the 100s-110s Physical Exam Constitutional: WD/WN, vitals as above Respiratory: normal respiratory effort, lungs clear to auscultation Cardiovascular: Rate/Rhythm: + tachycardic (Mild) and + irregularly irregular Heart Sounds: no murmur Extremities: no edema Gastrointestinal (Abdomen): normal bowel sounds, soft, nontender, no hepatosplenomegaly Psychiatric: A+Ox3, euthymic affect Results & Data Results & Data Vital Signs (Past 12 Hours) Vital Signs Temp Pulse Pulse Resp BP Pulse Ox O2 Del Method 12/10/24 16:00 37.9 C H 82 18 111/63 93 Room Air 12/10/24 14:06 37.9 C H 12/10/24 13:42 102 H 12/10/24 11:54 37 C 72 18 157/82 H 95 Room Air 12/10/24 09:30 Room Air 12/10/24 07:52 110 H 12/10/24 07:44 36.9 C 100 H 18 129/74 94 Room Air 12/10/24 05:24 37.0 C Laboratory Results CBC, BMP, LFTs, blood cultures, magnesium reviewed PG Care Time/CCT Total # of Minutes Spent Total Time Spent with Patient: Total time spent is greater than 50% in coordination of care (as documented) at patient's floor/unit and/or counseling patient: Coding Level of Care Code 51685 SUB INP/OBS CARE 3/50MIN Diagnoses Acute kidney injury N17.9 Campylobacter enteritis A04.5 Thrombocytopenia D69.6 Elevated troponin R79.89
[2024-12-10] MEDS: ATORVASTATIN 10 MG TAB PO SCH (20:00)
[2024-12-10] MEDS: ADVANCED PROBIOTIC 625 MG CAPSULE PO SCH (22:04)
[2024-12-11 08:03] LABS: Albumin Globulin Ratio 1.5 (0.9-2); Albumin Level 3.4 gm/dl (3.4-5.0); BUN Creatinine Ratio 17.9 (10-20); Bilirubin,Total 0.7 mg/dl (0.2-1.0); Calcium 8.3 mg/dl (8.6-10.3); Creatinine Clr Calc Pharmacy 48.7 ml/min; Globulin 2.3 gm/dl (2.5-4.0); Magnesium 1.9 mg/dl (1.7-2.4); Potassium 3.5 mmol/L (3.5-5.1); Total Protein 5.7 gm/dl (6.0-8.3)
[2024-12-11 08:10] LABS: Hematocrit (blood only) 35.6 % (42.0-52.0); Hemoglobin 12.7 g/dl (14.0-18.0); Mean Corpuscular Hemoglobin 33.5 pg (25.0-34.0); Mean Corpuscular Hgb Conc 35.7 g/dL (32.0-36.0); Mean Corpuscular Volume 93.9 fL (80.0-100.0); Mean Platelet Volume 11.3 fL (9.4-12.4); Platelet Count 94 K/uL (130-400); RDW Coefficient of Variation 14.1 % (11.5-14.5); RDW Standard Deviation 48.2 fL (36.4-46.3); Red Blood Count 3.79 M/uL (4.70-6.10); White Blood Count 5.77 K/ul (4.8-10.8)
[2024-12-11 08:47] LABS: Basophils # (auto) 0.02 K/uL (0.00-0.20); Basophils % (auto) 0.3 %; Eosinophils # (auto) 0.01 K/uL (0.00-0.50); Eosinophils % (auto) 0.2 %; Immature Granulocytes # (auto) 0.03 K/uL (0.01-0.20); Immature Granulocytes % (auto) 0.5 %; Lymphocytes # (auto) 0.72 K/uL (1.20-3.40); Lymphocytes % (auto) 12.5 %; Monocytes # (auto) 0.47 K/uL (0.11-0.59); Monocytes % (auto) 8.1 %; Neutrophils # (auto) 4.52 K/uL (1.40-6.50); Neutrophils % (auto) 78.4 %
--- NOTE | 2024-12-11 11:47 | Hospitalist Progress Note ---
Date of Service December 11, 2024 Assessment & Plan (1) Campylobacter enteritis: (2) Acute kidney injury: (3) Thrombocytopenia: (4) Elevated troponin: Plan Patient is an 84-year-old male with a past medical history of A-fib on Eliquis, hypertension, hyperlipidemia who P/W nausea/diarrhea and fevers times 3 days. He is admitted due to a fever for 39.5C, TJ, and elevated troponin secondary to Campylobacter enterocolitis. He ate undercooked chicken livers last week as he recalls which is the likely source. #Campylobacter/enterocolitis/sepsis POA/thrombocytopenia -CT A/P showed pancolonic wall thickening, along with distal small bowel wall thickening, consistent with infectious/inflammatory enterocolitis. Stool PCR positive for Campylobacter. With some ongoing diarrhea and mild abdominal pain, and now recurrent nausea, but fevers are resolving. Mild thrombocytopenia likely secondary to acute illness and is also improving. Still somewhat tachycardic only with ambulation and no further leukocytosis. Procalcitonin was minimally elevated on admission. Chest x-ray negative. Blood cultures remain no growth to date but less than 48 hours -Continue azithromycin 500 mg PO x 3 days or until symptoms improved with age and high fever-May need to extend course -Continue isolation precautions -Continue low fiber diet as tolerated, Zofran as needed for nausea -Replace electrolytes as needed-none needed today -Follow blood cultures #TJ/electrolyte abnormalities-2/2 to dehydration with acute infection/diarrhea. Cr increased to 1.98, BUN 32 on admission and now improved to normal. UA elevated specific gravity, 1+ protein, hyaline casts. With hypomagnesemia, hyponatremia, and hypokalemia as well All are improving -Follow BMP, magnesium in the morning -Replace electrolytes as needed #elevated troponin -suspect 2/2 to demand ischemia with acute infection. Troponin 30.4/29/44/52. No chest pain, ECG with atrial fibrillation without ischemic changes. Remains in atrial fibrillation with mild tachycardia -Continue home diltiazem and metoprolol for rate control # Permanent a fib-rates remain mostly controlled except for with ambulation now, due to infection, fever, mild dehydration. -Continue home p.o. Eliquis -Resume home diltiazem and metoprolol for rate control -Monitor on telemetry #inguinal hernia-patient with LLQ pain for multiple weeks; nontender to palpation on admitting exam. CT showed left inguinal hernia with small knuckle of sigmoid colon; without evidence of incarceration or bowel obstruction -Can follow-up with PCP and consider surgery consult referral in out patient setting #HLD -continue statin VTE ppx: Eliquis Dispo: Continued stay PCU, PT/OT consults will be ordered to see if needs rehab, hopeful for discharge tomorrow as patient not feeling quite ready for discharge yet today Admission and Anticipated Discharge Date Admission Date: December 09, 2024 Subjective Patient had a couple of episodes of diarrhea this morning and now feels more nauseated with some lower abdominal pressure after eating breakfast. He took Zofran but does not feel he is ready to go home yet. He is stronger and is independently ambulating in the room. Had rapid A-fib overnight into the 150s but mostly was when he was up going to the bathroom. No blood in the stool. No shortness of breath, no angina. Physical Exam Constitutional: WD/WN, vitals as above Respiratory: normal respiratory effort, lungs clear to auscultation Cardiovascular: Rate/Rhythm: regular rate and + irregularly irregular Heart Sounds: no murmur Extremities: no edema Gastrointestinal (Abdomen): Inspection/Auscultation: abdomen normal to inspection and normal bowel sounds; abdomen not distended Percussion/Palpation: + abdomen tender (Mild in LLQ without guarding or rebound) and abdomen soft Psychiatric: A+Ox3, euthymic affect Results & Data Results & Data Vital Signs (Past 12 Hours) Vital Signs Temp Pulse Pulse Resp BP Pulse Ox O2 Del Method 12/11/24 11:29 36.8 C 91 H 18 139/94 91 Room Air 12/11/24 09:00 93 H 12/11/24 07:00 36.9 C 100 H 18 155/93 H 94 Room Air 12/11/24 03:33 37.3 C 95 H 20 142/91 H 90 Room Air Laboratory Results CBC, BMP, magnesium, blood cultures reviewed PG Care Time/CCT Total # of Minutes Spent Total Time Spent with Patient: Total time spent is greater than 50% in coordination of care (as documented) at patient's floor/unit and/or counseling patient: Coding Level of Care Code 34551 SUB INP/OBS CARE 2/35MIN Diagnoses Campylobacter enteritis A04.5 Acute kidney injury N17.9 Thrombocytopenia D69.6 Elevated troponin R79.89
[2024-12-12 06:40] LABS: Albumin Globulin Ratio 1.5 (0.9-2); Albumin Level 3.5 gm/dl (3.4-5.0); BUN Creatinine Ratio 13.5 (10-20); Bilirubin,Total 1.1 mg/dl (0.2-1.0); Calcium 8.3 mg/dl (8.6-10.3); Creatinine Clr Calc Pharmacy 54.8 ml/min; Globulin 2.3 gm/dl (2.5-4.0); Magnesium 1.8 mg/dl (1.7-2.4); Potassium 3.6 mmol/L (3.5-5.1); Total Protein 5.8 gm/dl (6.0-8.3)
[2024-12-12 06:49] LABS: Basophils # (auto) 0.02 K/uL (0.00-0.20); Basophils % (auto) 0.3 %; Eosinophils # (auto) 0.01 K/uL (0.00-0.50); Eosinophils % (auto) 0.2 %; Hematocrit (blood only) 34.9 % (42.0-52.0); Hemoglobin 12.3 g/dl (14.0-18.0); Immature Granulocytes # (auto) 0.03 K/uL (0.01-0.20); Immature Granulocytes % (auto) 0.5 %; Lymphocytes # (auto) 0.79 K/uL (1.20-3.40); Lymphocytes % (auto) 11.9 %; Mean Corpuscular Hemoglobin 33.1 pg (25.0-34.0); Mean Corpuscular Hgb Conc 35.2 g/dL (32.0-36.0); Mean Corpuscular Volume 93.8 fL (80.0-100.0); Mean Platelet Volume 11.3 fL (9.4-12.4); Monocytes # (auto) 0.81 K/uL (0.11-0.59); Monocytes % (auto) 12.2 %; Neutrophils # (auto) 4.99 K/uL (1.40-6.50); Neutrophils % (auto) 74.9 %; Platelet Count 99 K/uL (130-400); Platelet Estimate Decreased (Normal); RBC Morphology Unremarkable; RDW Coefficient of Variation 13.7 % (11.5-14.5); RDW Standard Deviation 46.5 fL (36.4-46.3); Red Blood Count 3.72 M/uL (4.70-6.10); White Blood Count 6.65 K/ul (4.8-10.8)
--- NOTE | 2024-12-12 16:52 | Hospitalist Progress Note ---
Date of Service December 12, 2024 Assessment & Plan (1) Campylobacter enteritis: (2) Acute kidney injury: (3) Thrombocytopenia: (4) Elevated troponin: Plan Patient is an 84-year-old male with a past medical history of A-fib on Eliquis, hypertension, hyperlipidemia who P/W nausea/diarrhea and fevers x 3 days. He is admitted w/ fever 39.5C, TJ, and elevated troponin secondary to Campylobacter enterocolitis. He ate undercooked chicken livers last week which is the likely source. #Campylobacter/enterocolitis/sepsis POA/thrombocytopenia -CT A/P showed pancolonic wall thickening, along with distal small bowel wall thickening, consistent with infectious/inflammatory enterocolitis. Stool PCR positive for Campylobacter. Abd pain, diarrhea and nausea finally improving, no fever thus far on 12/12. Mild thrombocytopenia likely secondary to acute illness and is also improving. Tachycardia improving and no further leukocytosis. Procalcitonin was minimally elevated on admission. Chest x-ray negative. Blood cultures remain no growth to date at almost 72 hours. I discussed his case on phone with ID who was in agreement to extend his course of treatment with azithro to 5 days. If Blood cxs turn positive, ID recommends 14 day course. -Continue azithromycin 500 mg PO x 5 days -last day of tx 12/13 -Continue isolation precautions -Continue low fiber diet -Replace electrolytes as needed-none needed today -Follow blood cultures-remain NGTD -continue probiotic -continue APAP prn fever, Zofran as needed for nausea #TJ/electrolyte abnormalities-2/2 to dehydration with acute infection/diarrhea. Cr increased to 1.98, BUN 32 on admission and now improved to normal. UA elevated specific gravity, 1+ protein, hyaline casts. With hypomagnesemia, hyponatremia, and hypokalemia as well-All are resolved -Follow BMP, magnesium in the morning -Replace electrolytes as needed #elevated troponin -suspect 2/2 to demand ischemia with acute infection, rapid Afib on admission. Troponin 30.4/29/44/52. No chest pain, ECG with atrial fibrillation without ischemic changes -Continue home diltiazem and metoprolol for rate control # Permanent a fib-rates now much better controlled and were fast before from infection, fever, and dehydration. -Continue home p.o. Eliquis -continue home diltiazem and metoprolol for rate control -Monitor on telemetry #inguinal hernia-patient with LLQ pain for multiple weeks; nontender to palpation on admitting exam. CT showed left inguinal hernia with small knuckle of sigmoid colon; without evidence of incarceration or bowel obstruction -Can follow-up with PCP and consider surgery consult referral in outpatient setting #HLD -continue statin VTE ppx: Eliquis Dispo: Continued stay PCU, PT/OT consults recommend return home. Plan to dc to home on 12/13 if remains afebrile overnight 12/12 Admission and Anticipated Discharge Date Admission Date: December 09, 2024 Anticipated date of discharge: 12/13/24 Subjective Pt had 3 BMs today but feels they are becoming more solid. He was hesitant to leave for home today in case he spiked another fever. No abd pain. He had some falsely low POx readings as well. A forehead POx probe showed normal readings. Tele with Afib, rates better controlled in 80-90s Physical Exam Constitutional: WD/WN, vitals as above Respiratory: normal respiratory effort, lungs clear to auscultation Cardiovascular: Rate/Rhythm: regular rate and + irregularly irregular Heart Sounds: no murmur Extremities: no edema Gastrointestinal (Abdomen): normal bowel sounds, soft, nontender, no hepatosplenomegaly Psychiatric: A+Ox3, euthymic affect Results & Data Results & Data Vital Signs (Past 12 Hours) Vital Signs Temp Pulse Pulse Resp BP Pulse Ox O2 Del Method 12/12/24 15:32 36.5 C 85 19 152/97 H 12/12/24 14:00 76 12/12/24 10:38 37.7 C H 107 H 18 157/98 H 90 Room Air 12/12/24 07:46 36.7 C 92 H 18 143/83 H 90 Room Air 12/12/24 07:00 92 H Laboratory Results CBC, CMP, blood cxs reviewed PG Care Time/CCT Total # of Minutes Spent Total Time Spent with Patient: Total time spent is greater than 50% in coordination of care (as documented) at patient's floor/unit and/or counseling patient: Coding Level of Care Code 81174 SUB INP/OBS CARE 2/35MIN Diagnoses Campylobacter enteritis A04.5 Acute kidney injury N17.9 Thrombocytopenia D69.6 Elevated troponin R79.89
[2024-12-12 19:49] VITALS: RESP 18
[2024-12-13 07:55] LABS: Basophils # (auto) 0.02 K/uL (0.00-0.20); Basophils % (auto) 0.3 %; Eosinophils # (auto) 0.03 K/uL (0.00-0.50); Eosinophils % (auto) 0.4 %; Hematocrit (blood only) 34.3 % (42.0-52.0); Hemoglobin 12.3 g/dl (14.0-18.0); Immature Granulocytes # (auto) 0.03 K/uL (0.01-0.20); Immature Granulocytes % (auto) 0.4 %; Lymphocytes # (auto) 0.81 K/uL (1.20-3.40); Lymphocytes % (auto) 11.7 %; Mean Corpuscular Hemoglobin 33.2 pg (25.0-34.0); Mean Corpuscular Hgb Conc 35.9 g/dL (32.0-36.0); Mean Corpuscular Volume 92.7 fL (80.0-100.0); Mean Platelet Volume 11.3 fL (9.4-12.4); Monocytes # (auto) 0.76 K/uL (0.11-0.59); Neutrophils # (auto) 5.26 K/uL (1.40-6.50); Neutrophils % (auto) 76.2 %; Platelet Count 108 K/uL (130-400); RDW Coefficient of Variation 13.6 % (11.5-14.5); RDW Standard Deviation 45.9 fL (36.4-46.3); White Blood Count 6.91 K/ul (4.8-10.8)
[2024-12-13 08:01] VITALS: PULSE 73; TEMP 99; O2SAT 93
[2024-12-13 08:05] LABS: Calcium 8.3 mg/dl (8.6-10.3); Magnesium 1.8 mg/dl (1.7-2.4); Potassium 3.4 mmol/L (3.5-5.1)
--- NOTE | 2024-12-13 08:37 | Hospitalist Progress Note ---
Date of Service December 13, 2024 Assessment & Plan (1) Campylobacter enteritis: (2) Acute kidney injury: (3) Thrombocytopenia: (4) Elevated troponin: Plan Patient is an 84-year-old male with a past medical history of A-fib on Eliquis, hypertension, hyperlipidemia who P/W nausea/diarrhea and fevers x 3 days. He is admitted w/ fever 39.5C, TJ, and elevated troponin secondary to Campylobacter enterocolitis. He ate undercooked chicken livers last week which is the likely source. #Campylobacter/enterocolitis/sepsis POA/thrombocytopenia -CT A/P showed pancolonic wall thickening, along with distal small bowel wall thickening, consistent with infectious/inflammatory enterocolitis. Stool PCR positive for Campylobacter. Abd pain, diarrhea and nausea improving, Blood cultures remain no growth to date at almost 72 hours. I discussed his case on phone with ID who was in agreement to extend his course of treatment with azithro to 5 days. If Blood cxs turn positive, ID recommends 14 day course. -Continue azithromycin 500 mg PO x 5 days -last day of tx 12/13 -Continue isolation precautions -Continue low fiber diet -Replace electrolytes as needed-none needed today -Follow blood cultures-remain NGTD -continue probiotic -continue APAP prn fever, Zofran as needed for nausea #TJ/electrolyte abnormalities-2/2 to dehydration with acute infection/diarrhea. Cr increased to 1.98, BUN 32 on admission and now improved to normal. UA elevated specific gravity, 1+ protein, hyaline casts. With hypomagnesemia, hyponatremia, and hypokalemia as well-All are resolved -Follow BMP, magnesium in the morning #elevated troponin -suspect 2/2 to demand ischemia with acute infection, rapid Afib on admission. Troponin 30.4/29/44/52. No chest pain, ECG with atrial fibrillation without ischemic changes -Continue home diltiazem and metoprolol for rate control # Permanent a fib-rates now much better controlled and were fast before from infection, fever, and dehydration. -Continue home p.o. Eliquis -continue home diltiazem and metoprolol for rate control -Monitor on telemetry #inguinal hernia-patient with LLQ pain for multiple weeks; nontender to palpation on admitting exam. CT showed left inguinal hernia with small knuckle of sigmoid colon; without evidence of incarceration or bowel obstruction -Can follow-up with PCP and consider surgery consult referral in outpatient setting #HLD -continue statin VTE ppx: Eliquis Dispo: Continued stay PCU, PT/OT consults recommend return home. Plan to dc to home on 12/13 if remains afebrile overnight 12/12 Admission and Anticipated Discharge Date Admission Date: December 09, 2024 Results & Data Results & Data Vital Signs (Past 12 Hours) Vital Signs Temp Pulse Pulse Resp BP Pulse Ox O2 Del Method 12/13/24 08:00 99.0 F 73 18 148/84 H 93 Room Air 12/13/24 03:22 98.2 F 80 18 137/74 91 Room Air 12/12/24 22:53 98.2 F 81 18 119/69 91 Room Air 12/12/24 21:57 74 PG Care Time/CCT Total # of Minutes Spent Total Time Spent with Patient: Total time spent is greater than 50% in coordination of care (as documented) at patient's floor/unit and/or counseling patient: Coding Diagnoses Campylobacter enteritis A04.5 Acute kidney injury N17.9 Thrombocytopenia D69.6 Elevated troponin R79.89
[2024-12-13 11:15] VITALS: BP 103/60
--- NOTE | 2024-12-13 14:33 | Discharge Summary ---
Discharge Summary Date of Service December 13, 2024 Principal Dx & Hospital Course #1 = Principal Diagnosis (1) Campylobacter enteritis: (2) Acute kidney injury: (3) Thrombocytopenia: (4) Elevated troponin: Plan Patient is an 84-year-old male with a past medical history of A-fib on Eliquis, hypertension, hyperlipidemia who P/W nausea/diarrhea and fevers x 3 days. He is admitted w/ fever 39.5C, TJ, and elevated troponin secondary to Campylobacter enterocolitis. He ate undercooked chicken livers last week which is the likely source. #Campylobacter/enterocolitis/sepsis POA/thrombocytopenia -CT A/P showed pancolonic wall thickening, along with distal small bowel wall thickening, consistent with infectious/inflammatory enterocolitis. Stool PCR positive for Campylobacter. Abd pain, diarrhea and nausea resolved, pt remains with some weakness Blood cultures remain no growth to date previous physician discussed his case on phone with ID who was in agreement to extend his course of treatment with azithro. If Blood cxs turn positive, ID recommends 14 day course. -Continue azithromycin 500 mg PO x 5 additional days after discharge -continue probiotic after discharge -continue APAP prn fever, Zofran as needed for nausea #TJ/electrolyte abnormalities-2/2 to dehydration with acute infection/diarrhea. resolved electrolytes replete #elevated troponin -suspect 2/2 to demand ischemia with acute infection, rapid Afib on admission. Troponin 30.4/29/44/52. No chest pain, ECG with atrial fibrillation without ischemic changes -Continue home diltiazem and metoprolol for rate control # Permanent a fib-rates now much better controlled and were fast before from infection, fever, and dehydration. -Continue home p.o. Eliquis -continue home diltiazem and metoprolol for rate control #inguinal hernia-patient with LLQ pain for multiple weeks; nontender to pal pation on admitting exam. CT showed left inguinal hernia with small knuckle of sigmoid colon; without evidence of incarceration or bowel obstruction -Can follow-up with PCP and consider surgery consult referral in outpatient setting #HLD -continue statin dc to home on 12/13 Admission HPI Per Admitting Provider Patient is an 84-year-old male with a past medical history of A-fib on Eliquis, hypertension, hyperlipidemia, cataracts. He presents today due to flulike symptoms for approximately 3 days. He is being admitted due to a fever for 39.5C, TJ, and elevated troponin. Patient seen at bedside with his son present. He stated that for the past 3 days he has had fever, chills, headache, nausea, diarrhea, and weakness. He typically never gets headaches. He has recorded temperatures of 100-101 F over the past few days. He also endorses nausea for 2/3 of the days; denies vomiting. He also endorses left lower quadrant pain but stated that it has been for multiple weeks and he denies pain today. Regarding the weakness, he stated he had trouble getting out of bed last night. He does endorse dizziness but thinks that his difficulty ambulating is more so due to weakness with acute infection. He stated that he took 3 Imodium today to help with the diarrhea. He feels as though he does not drink enough fluids. He also stated he has still been trying to eat for the past few days but has a decreased appetite. Denies sick contacts. he denies cough, sore throat, shortness of breath, chest pain, dysuria, blood in stool, melena. He does not use nicotine products. He drinks 1 glass of wine daily. He lives at home with his . He denies past history of DM or previous VTE. He does not use oxygen, CPAP/BiPAP at baseline. He has still been taking his home medications with acute illness, took this morning but is due for evening doses. Discussed IV dosing due to acute infection. Patient agreeable. He wishes to be full code at this time. 2300 - patient reassessed at bedside on the floor. Updated about positive Campylobacter results. Patient does remember about a week ago he ate chicken livers that may have been a little pink. Him and his about these for the dog but figured that they would try it. He denies any other concerning p.o. intake. Patient is hopeful to DC in a.m., discussed TJ and needing improvement of renal function prior to discharge. Discharge Exam awake alert and appropriate abd is soft and non tender Discharge Plan Discharge Items Patient Disposition: Home - Self-Care Reason For Visit: ENTEROCOLITIS, TJ, FEVER Discharge Diagnosis: Campylobacter bowel infection Activity: Per Instructions section Activity Comment: slowly increase activity Non-emergency contact: Primary Care Provider Call non-emergency contact if: your symptoms worsen Follow-up/Referrals: Agustin Majano MD [Primary Care Provider] - Diet: Regular Addtl Attending Provider Instructions: eat some probiotics a few times a week, this can be yogurt or cottage cheese complete your antibiotic for additional 5 days Addtl Back Tender Paper Machine Provider Instructions: ACampylobacterinfection (campylobacteriosis) is a common stomach bug that causesdiarrhea, stomach cramping, vomiting and fever. It occurs when Campylobacterbacteriaenter your body typically through something you eat or drink and make you sick. Many people refer to this infection asfood poisoning . But the bacteria can also spread in other ways, like through contact with an infected animal. Most people feel sick for about five to seven days but recover just fine without treatment. You can take care of yourself at home by resting and drinking plenty of fluids to preventdehydration Advertisement How common areCampylobacterinfections? Campylobacterinfections are very common among children and adults. Theyre one of the top causes of diarrhea among people of all ages in the [place] and globally. Researchers estimate about 1.5 millionCampylobacterinfections occur each year in the [place] Theyre typically more common in the summer than the winter. Symptoms and Causes What areCampylobacterinfection symptoms? Symptoms of aCampylobacterinfection include: * Diarrhea (may contain blood). This may be the only symptom in infants. * Stomach cramping. * Fever. * Nausea and vomiting. Youll notice symptoms about two to five days after youre exposed to the bacteria. Theyll last for about a week. Stomach bugs likeCampylobactercan quickly lead to dehydration. * Feeling very thirsty. * Not peeing often. * Skin thats warm to the touch. Signs of dehydration in babies and toddlers include: * Less urine (pee) output than normal. In infants, this means fewer than six wet diapers per day, and in toddlers, it means no urine output for eight hours. * Fewer or no tears when crying. * Lack of interest in playing. * Excessive sleepiness. Advertisement What causes aCampylobacterinfection? Campylobacterbacteria cause this type of infection. This means bacteria (not viruses) are thegermsresponsible for making you sick. People call Campylobactera stomach bug because a germ infects you. But since a virus isnt involved, its not quite the same asstomach flu(viral gastroenteritis). Still, many people use the terms interchangeably, and the symptoms are similar. What isCampylobacterjejuni? Campylobacter jejuni(C jejuni) is the species ofCampylobacterbacteria thats most likely to make you sick. When you keep rushing to the bathroom, you probably dont care much about the specific germ thats responsible. You just want to get better. But scientists k eep track of the types of germs that cause different illnesses, including bacterial infectionsand viral infections. WithCampylobacterinfections, the culprits come from theCampylobactergenus of bacteria. A genus is a big category that contains many different species. There are more than 20Campylobacterspecies, but not all of them make people sick. The species that causes the mostCampylobacterinfections in humans isC. jejuni, followed byCampylobacter coli(C. coli). How doesCampylobacterspread? Campylobacterbacteria spread to humans mostly through contaminated food and water. But they can also spread in other ways. Most people get sick from: * Drinking unpasteurized (raw) milk. Bacteria can enter the milk through trace amounts of manure or when a cow has an udder infection. * Eating poultry like chicken, turkey, duck or goose thats not fully cooked. * Drinking untreated water like water from contaminated streams or wells. Though less common, you can also get aCampylobacterinfection from: * Eating food thats touched raw poultry or its juices (for example, lettuce prepared on a cutting board that contains traces of raw chicken juice). * Eating other types of meat or seafood that arent fully cooked. * Eating contaminated fruits or veggies. * Contact with the poop of infected animals, including pets. IsCampylobactercontagious? Yes, its possible for you to spread the infection to others. The bacteria live in your poop and from there can travel to your hands or elsewhere for other people to encounter. If someone touches a contaminated surface and then touches their mouth, they might get sick. But transmission between humans doesnt happen as often as other methods (like eating undercooked poultry). To avoid spreadingCampylobacter, wash your hands thoroughly after using the bathroom. When can people withCampylobacterreturn to work or school? Its generally safe to return once the diarrhea goes away and your poop becomes solid. But your healthcare provider is the best person to ask about how soon you or your child can return to normal activities. If you handle food or work in healthcare, you may need to stay home until all your symptoms are gone to avoid the risk of getting others sick. Go to an emergency room immediately if you develop: * A fever over 103 degrees Fahrenheit (39.4 degrees Celsius). * Confusion or disorientation. * Fast heart rate. * Shortness of breath. * Extreme pain or discomfort. Diagnosis and Tests How is aCampylobacterinfection diagnosed? The most common test to detect aCampylobacterinfection is astool test. Your healthcare provider sends a sample of your poop to a lab, where technicians test it for bacteria. Rarely, providers need to order ablood testto check if the bacteria has spread to your blood. Management and Treatment What should I know aboutCampylobactertreatment? Most people dont need treatment for aCampylobacterinfection. It just has to run its course, which takes about one week. You can help avoid dehydration by: * Drinking plenty of fluids. * Replenishing yourelectrolytes. A sports drink can help. Healthcare providers sometimes prescribeantibioticsfor people at risk of getting very sick. These include people who: * Are over age 65. * Are . * Have a weakened immune system. Advertisement Prevention How can I prevent aCampylobacterinfection? You cant always prevent infections likeCampylobacter, but theres a lot you can do to lower your risk. Here are some simple steps you can take in your daily life to help keep your family healthy: * Be careful in the kitchen. Followingfood safety guidelinescan greatly lower your risk of food-borne illness. Its especially important to take care when handling raw meat. Research showsCampylobactercommonly live on raw poultry (like chicken, turkey and duck). And just one drop of juice from that package could have enough bacteria to make you sick. * Thoroughly cook meat and seafood. Cooking meat to theproper temperaturecan killCampylobacterand other bacteria that could cause illness. Use caution whenconsuming raw fish(but completely avoid it if youre , over age 65 or have a weakened immune system). * Choose pasteurized dairy.Unpasteurized (raw) milkis a leading cause of Campylobacterinfections. Other products, like soft cheeses, might also contain unpasteurized milk even if its not as obvious. Read the labels on dairy products and look for the word pasteurized to know theyre safe. * Drink clean water.Campylobacterand other bacteria can easily contaminate water, even if it looks clean. The [place] Environmental Protection Agency (EPA) sets standards for public water safety. But if you drinkwell water, its up to you to make sure its free of bacteria and other contaminants. You might also want to talk to your healthcare provider about ways to avoid contaminated waterwhile traveling. * Wash your hands.Campylobacteris a germ, and germs love to hang out on your hands. From there, its just a short journey to your eyes, nose or mouth, where they can enter your body and make you sick. Goodhand hygienecan protect yourself and others. This includes washing your hands before preparing food, after using the bathroom and after changing a babys diaper. Advertisement PreventingCampylobacterwhen you have a pet Furry family members can spread germs just like humans do. Cats, dogs and other common pets sometimes carryCampylobacterbacteria. You can avoid getting sick by washing your hands after you: * Touch your pet. * Touch their food, water, bed or toys. * Clean up their poop, pee or throw up. Noble / Prognosis What can I expect if I have aCampylobacterinfection? ACampylobacterinfection can make you quite sick, but your symptoms should go away in five to seven days. Most people dont have complications or long-term issues. If you develop complications, your healthcare provider will tell you what you can expect. When should I see my healthcare provider? Most people recover fine without the need for medical care. Call your provider if youre , over age 65 or have aweakened immune system. Theyll talk to you about your risk for complications and let you know if you need treatment. You should also call your provider if you feel like youre not getting better after about a week. Pending Studies at Discharge: No Stand-Alone Forms: My [facility], Smoking Cessation Medications and DC Order Prescriptions: New azithromycin 250 mg Tablet 500 mg PO QAM Qty: 10 0RF Rx Instructions: this is for bowel infection not uri Continued multivitamin Tablet 1 tab PO QAM metoprolol succinate 25 mg Tablet Extended Release 24 Hr 25 mg PO BID Eliquis 5 mg Tablet 5 mg PO BID lutein 20 mg Capsule 20 mg PO QAM diltiazem HCl 120 mg Capsule,Ext.Rel 24h Degradable 120 mg PO QAM cholecalciferol (vitamin D3) [Vitamin D3] 25 mcg (1,000 unit) Tablet 25 mcg PO QAM omega 9-uet-ucy-fish oil [Fish Oil] 60-90-500 mg Capsule 1 cap PO QAM atorvastatin 10 mg Tablet 10 mg PO QPM brimonidine-timolol [Combigan] 0.2-0.5 % Drops 1 drp OPB BID azelastine 137 mcg (0.1 %) spray,non-aerosol 1 spray INTRANASAL [facility] cranberry 500 mg Capsule 1,000 mg PO BID Rx Instructions: administer with meals Discharge Orders: Discharge Order (Routine); Ordered 12/13/24 Ordered By: Shukri Loving/Other Patient Handouts: Low-Fiber Diet Admission Data Admit Date/Time: 12/09/24 21:24 Attending Provider: Shukri Estevez Admit Provider: Rudolph Crowder Primary Care Provider: Agustin Majano Other Providers: Rudolph Crowder Other Interventions: Discharge Summary Assessment (RN) Last Done: 12/13/24 11:14 Hospital Stay Data Consultations 12/09/24 20:34 ED Decision to Admit Stat Diagnostic Imagining Performed 12/09/24 18:30 CT abd pelvis IV con only Stat Pending Results Patient Have Any Pending Studies at Discharge: No Discharge Instructions Given to Patient (Per Discharging Provider) eat some probiotics a few times a week, this can be yogurt or cottage cheese complete your antibiotic for additional 5 days Total Time Total Time Spent Total Time Spent (In Minutes): greater than 30 minutes were required to complete Coding Level of Care Code 16529 INP/OBS DISCH >30 MIN Diagnoses Campylobacter enteritis A04.5 Acute kidney injury N17.9 Thrombocytopenia D69.6 Elevated troponin R79.89
--- NOTE | 2024-12-16 07:49 | Coding Query ---
CODING QUERY To promote full compliance with coding requirements relating to patient care, provider participation is requested in all cases of punch press operator uncertainty. Please assist us with the question(s) below: Coding Question(s): Sepsis is documented starting on 12/10 Progress Note and through the Discharge Summary with , "Campylobacter/enterocolitis/sepsis POA/thrombocytopenia ". Please specify below, in your clinical opinion, the most likely source of the Sepsis POA: ( xxx ) most likely Campylobacter enterocolitis ( ) most likely Other Infectious source: Please Specify ( ) most likely source is Unknown ( ) Other: Please Specify Physician's Response(s): Thank you Leigh Hernández Principal Diagnosis: "that condition established after study, to be chiefly responsible for occasioning the admission of the patient to the hospital for care." Co-Existing Principal Diagnosis: "when two or more diagnoses equally meet the criteria for principal diagnosis as determined by the circumstances of admission, diagnostic work up, and/or therapy provided, and the Alphabetic Index, Tabular List, or another coding guideline does not provide sequencing direction, any one of the diagnoses may be sequenced first." "When the physician has documented what appears to be a current diagnosis in the body of the record, but has not included the diagnosis in the final diagnostic statement, the physician should be asked whether the diagnosis should be added." (Source Coding Clinic 2 QTR90. p3-4) JOSIE
== END 2024-12-13 11:56 | disposition home or self-care (01) | DRG 872 ==
LOC: ED 18:11 → SUATTDRO 21:24 → 2S 21:24